=== PATIENT | female | born 1950 | race Caucasian/White ===

== ENCOUNTER → 2023-12-06 13:45 | Outpatient (REF) | payer OTHER, SELFPAY | LOC: DHCBS MAIN 13:45 | PROVIDERS: ATTENDING PHYSICIAN Internal Medicine Cardiovascular Disease | DX: I34.0 Nonrheumatic mitral (valve) insufficiency (principal) | CPT/HCPCS: 93306 ==

== ENCOUNTER 2023-12-22 07:29 | Day surgery (SDC) | payer OTHER, SELFPAY ==
[2023-12-22] VITALS (8 sets, daily range): BP systolic 104–133; BP diastolic 42–81; BMI 26.4
[2023-12-22] MEDS: LOW STRENGTH ASPIRIN 243 MG PO (08:22)
[2023-12-22] MEDS: NSS 203 ML IV (08:25)
[2023-12-22 08:32] LABS: Hematocrit 36.2 % (37.0-47.0); Mean Corp Hgb Conc. 33.1 g/dL (33.0-37.0); Mean Corpuscular Hgb 31.3 pg (27.0-31.0); Mean Corpuscular Volume 94.5 fL (81.0-99.0); Platelet Count 200 10^3/uL (130-400); Red Blood Cell Count 3.83 10^6/uL (4.20-5.40); Red Cell Dist. Width 14.2 % (11.5-14.5); White Blood Cell Count 7.2 10^3/uL (4.8-10.8)
[2023-12-22 08:36] LABS: Blood Urea Nitrogen 40 mg/dl (7-17); Calcium 9.1 mg/dl (8.4-10.2); Carbon Dioxide 26 mmol/L (22-30); Chloride 105 mmol/L (98-107); Estimated Creatinine Clearance 37 ml/min; Glucose 99 mg/dl (70-99); Potassium 3.8 mmol/L (3.5-5.1); Sodium 138 mmol/L (135-145); eGFR 52.73
[2023-12-22 11:38] LABS: ACT-LR - POC 245 Seconds (116-155)
[2023-12-22 11:59] LABS: ACT-LR - POC 252 Seconds (116-155)
--- NOTE | 2023-12-22 12:08 | ITS.CL.CATH ---
It Support Engineer - Catheterization
Cardiac Catheterization
Procedure Report:
RIGHT AND LEFT HEART STUDY
Date of Procedure: December 22, 2023
Referring: Dr. Geovanna Browne
PROCEDURES:
1. Right heart catheterization
2. Left heart catheterization with coronary and single-plane left ventriculography
3. Hemodynamic assessment of circumflex, LAD, and RCA with a Imlay Verrata wire
INDICATION: This is a 73-year-old female with moderate to severe mitral regurgitation, moderate tricuspid regurgitation, biatrial dilation and history of Raynaud's and CREST syndrome. She is permanently in atrial fibrillation on oral
anticoagulation. She was treated with IV diuresis but her symptoms of shortness of breath have persisted and she is now referred for coronary angiography and right heart catheterization.
ACCESS: Very poor right radial pulse with active Raynaud's and blanching of fingertips. Arterial access was obtained in the right common femoral artery with placement of a 6 Mexican arterial and venous sheaths using ultrasound guidance and
micropuncture.
HEMODYNAMICS : mmHg
RA (m) : 9
RV (s/d) : 52/2, 10
PA (s/d, m) : 50/20, 35
PCWP (m) : 17 with V waves to 28 mmHg
AO (s/d, m) : 140/54, 91
LV (s/d) : 148/10
LVEDP : 21
Estimated Janet Cardiac Output: 3.4 L / min and Cardiac Index: 2.0 L/ min / m-2
Systemic Vascular Resistance: 24.1 Wood units = 1929 dynes*sec*cm-5
Pulmonary Vascular Resistance: 5.3 Wood units = 424 dynes*sec*cm-5
CORONARY FINDINGS :
Dominance: Right
LEFT MAIN: Normal
LEFT ANTERIOR DESCENDING: The LAD arises normally from the left main and runs in the anterior interventricular groove. The LAD has minor irregularities over its course with no focal obstructive high-grade stenosis. The distal LAD wraps around the
apex.
CIRCUMFLEX: The circumflex is a medium caliber nondominant vessel that terminates into 2 small to medium caliber obtuse marginal branches. The mid circumflex has a long area of moderate atherosclerosis and focal 60-70% stenosis in the mid
circumflex before the bifurcation of the 2 terminal obtuse marginal branches.
RIGHT CORONARY ARTERY: The right coronary artery is a moderate caliber dominant vessel with a 50% proximal stenosis and minor irregularities throughout the remainder of the artery. The PDA and posterolateral branches are widely patent.
VENTRICULOGRAPHY: Left ventriculography was performed in an HERNANDEZ projection. The digital single-plane left ventricular ejection fraction is visually estimated at 50% with mild global hypokinesis. There is +1 mitral regurgitation noted on
ventriculogram
HEMODYNAMIC ASSESSMENT OF THE CIRCUMFLEX, LAD, AND RCA WITH A [place] VERRATA WIRE: Intravenous heparin was administered and the ACT was monitored. The origin of the left main was cannulated with a 6 Fr JL 4 guide catheter. Two hundred micrograms
of intracoronary nitroglycerin was given through the guide catheter. A Imlay Verrata wire was advanced to the guide catheter tip and normalized to guide catheter pressure. The Verrata wire was then carefully manipulated across the stenosis in
the mid circumflex and into a distal obtuse marginal branch. The iFR serially measured below the ischemic threshold at 0.83, 0.83, 0.81 in the Pd/Pa at the guide catheter measured 1.0 confirming no baseline drift.
The Imlay Verrata wire was redirected to the distal LAD where the iFR serially measured above the ischemic threshold at 0.92, 0.90, and 0.91. The resting Pd/Pa at the guide catheter was 1.0 confirming no baseline drift.
Attention was then turned to the right coronary artery. The Imlay Verrata wire was normalized to the guide catheter pressure while the guide was disengaged from the coronary ostium. The guide catheter engaged the right coronary ostium and
intracoronary nitroglycerin was administered. The Verrata wire was advanced to the distal right coronary artery where the iFR serially above the ischemic threshold and 0.97 and 0.98.
RADIATION SUMMARY: Fluoro Time (min): 10.3, Dose (mGy): 438, DAP (Gy.cm2) : 36.6
CONCLUSIONS
1. Single-vessel coronary artery disease. The stenosis in the mid circumflex was shown to be hemodynamically significant with an iFR serially measuring 0.83, 0.83, and 0.81.
2. There is moderate noncritical coronary disease with an IFR measuring above the ischemic threshold in both the LAD and RCA.
3. Low normal LVEF visually estimated at 50% with +1 mitral regurgitation noted by ventriculography
RECOMMENDATIONS
1. Proceed with JEFFREY to determine appropriate therapy and severity of mitral regurgitation
2. Continue apixaban
3. 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 Browne will review available data and further management decisions can be made based on the findings of the JEFFREY and assessment of hemodynamic
Copy to: Dr. Geovanna Browne
[2023-12-22] MEDS: NSS 1000 IV (12:45)
== END 2023-12-22 15:15 | disposition home or self-care (01) ==
LOC: CATH 07:29
PROVIDERS: ATTENDING PHYSICIAN Internal Medicine Interventional Cardiology; OTHER PHYSICIAN Internal Medicine Cardiovascular Disease
DX: I25.10 Atherosclerotic heart disease of native coronary artery without angina pectoris (principal); I48.91 Unspecified atrial fibrillation; I08.1 Rheumatic disorders of both mitral and tricuspid valves; R06.02 Shortness of breath; I10 Essential (primary) hypertension; K21.9 Gastro-esophageal reflux disease without esophagitis; M34.1 CR(E)ST syndrome; Z79.01 Long term (current) use of anticoagulants
CPT/HCPCS: C1769; C1894; 80048; 85027; 85347; 93460; 93571; 93572; C1760; Q9967

== ENCOUNTER → 2023-12-28 09:16 | Day surgery (SDC) | payer OTHER, SELFPAY ==
[2023-12-28 10:42] VITALS: BMI 26.6
== END ==
LOC: CATH 09:16
PROVIDERS: ATTENDING PHYSICIAN Internal Medicine Cardiovascular Disease
DX: I08.3 Combined rheumatic disorders of mitral, aortic and tricuspid valves (principal); I48.91 Unspecified atrial fibrillation; I12.9 Hypertensive chronic kidney disease with stage 1 through stage 4 chronic kidney disease, or unspecified chronic kidney disease; N18.9 Chronic kidney disease, unspecified; K21.9 Gastro-esophageal reflux disease without esophagitis; Z79.01 Long term (current) use of anticoagulants
CPT/HCPCS: 93312; 93320; 93325

== ENCOUNTER 2024-01-29 06:23 | Day surgery (SDC) | payer OTHER, SELFPAY ==
[2024-01-23 10:37] VITALS: BMI 28.2
[2024-01-23 11:12] LABS: % Basophils 0.2 % (0-2); % Eosinophils 1.5 % (0-6); % Immature Granulocytes 0.4 % (0-0.5); % Lymphocytes 22.9 % (20.5-51.1); % Monocytes 5.7 % (1.7-9.3); % Neutrophils 69.3 % (42.2-75.2); Absolute Eosinophils 0.1 10^3/uL (0-0.7); Absolute Lymphocytes 1.9 10^3/uL (1.2-3.4); Absolute Monocytes 0.5 10^3/uL (0.1-0.6); Absolute Neutrophils 5.6 10^3/uL (1.4-6.5); Hematocrit 36.3 % (37.0-47.0); Hemoglobin 11.9 g/dL (12.0-16.0); Mean Corp Hgb Conc. 32.8 g/dL (33.0-37.0); Mean Corpuscular Hgb 31.2 pg (27.0-31.0); Mean Platelet Volume 11.3 fL (7.4-10.4); Nucleated Red Blood Cells % 0 %; Platelet Count 163 10^3/uL (130-400); Red Blood Cell Count 3.82 10^6/uL (4.20-5.40); Red Cell Dist. Width 13.5 % (11.5-14.5); White Blood Cell Count 8.1 10^3/uL (4.8-10.8)
[2024-01-23 11:34] LABS: INR 1.72
[2024-01-23 12:04] LABS: ALT (SGPT) 14 U/L (0-35); AST (SGOT) 21 U/L (14-36); Albumin 4.1 g/dl (3.5-5.0); Alkaline Phosphatase 84 U/L (38-126); Blood Urea Nitrogen 39 mg/dl (7-17); Calcium 9.3 mg/dl (8.4-10.2); Carbon Dioxide 25 mmol/L (22-30); Chloride 103 mmol/L (98-107); Estimated Creatinine Clearance 39 ml/min; Glucose 120 mg/dl (70-99); Potassium 4.1 mmol/L (3.5-5.1); Sodium 135 mmol/L (135-145); Total Bilirubin 0.8 mg/dl (0.2-1.3); Total Protein 6.6 g/dl (6.3-8.2); eGFR 52.73
[2024-01-23 12:33] LABS: NT-proBNP 1600 pg/ml
[2024-01-29] VITALS (13 sets, daily range): BP systolic 93–133; BP diastolic 47–79; BMI 26.8
[2024-01-29] MEDS: LOW STRENGTH ASPIRIN 324 MG PO (07:18)
[2024-01-29] MEDS: NSS 205 ML IV (07:19)
[2024-01-29] MEDS: PLAVIX 600 MG PO (07:27)
[2024-01-29 08:27] LABS: ACT-LR - POC 313 Seconds (116-155)
--- NOTE | 2024-01-29 09:33 | ITS.CL.CATH ---
Grease Buffer - Catheterization
Cardiac Catheterization
Procedure Report:
ANGIOPLASTY REPORT
Date of Procedure: January 29, 2024
Referring: Dr. Geovanna Browne
INDICATIONS: Moderate to severe mitral regurgitation by transthoracic echocardiogram and moderate mitral regurgitation by transesophageal echocardiogram. Hemodynamically significant mid circumflex stenosis measured at the time of coronary
angiography December 22, 2023. Her symptoms of shortness of breath have persisted with no clear etiology. She is now referred for coronary intervention of the hemodynamically significant stenosis in the mid circumflex.
PROCEDURES:
1. Successful stenting of the mid circumflex with a 3.5 x 23 mm Xience stent that was postdilated with a 3.5 mm noncompliant balloon
ACCESS: Right common femoral artery, 6 Divehi sheath with history of severe Raynaud's disease
ANGIOPLASTY REPORT: Arterial access was obtained in the right common femoral artery using ultrasound guidance and micropuncture technique. A 6 Divehi sheath was inserted. Angiography revealed appropriate positioning of the arteriotomy site for
closure with an Angio-Seal at the conclusion of the interventional procedure.
Intravenous heparin, 7000 units, was administered and the ACT was followed during the procedure. The patient received a 600 mg loading dose of clopidogrel just prior to arrival to the catheterization laboratory and was treated with aspirin 81 mg
daily prior to the procedure. Her apixaban was held for 48 hours.
The origin of the left main was cannulated with a 6 Divehi EBU 3.5 guiding catheter and a BMW guidewire across the stenosis in the mid circumflex and was advanced to the distal vessel. Primary stenting was performed with placement of a 3.5 x 23 mm
Xience stent. The stent was implanted at nominal pressures then postdilated with a 3.5 mm noncompliant balloon between 16 and 18 kayode with a nice angiographic result
COMPLICATIONS: None
RADIATION SUMMARY: Fluoro Time (min): 4.3, Dose (mGy): 176.2, DAP (Gy.cm2) : 12.0
CONCLUSION
1. Successful stenting of the mid circumflex with a 3.5 x 23 mm Xience stent that was implanted at nominal pressures and postdilated with a 3.5 mm noncompliant balloon to high pressures
RECOMMENDATIONS
1. Aspirin, clopidogrel, apixaban for 1 week followed by clopidogrel and apixaban for 6 to 12 months
Copy to: Dr. Geovanna Browne
--- NOTE | 2024-01-29 14:50 | W.PN.UPDATE ---
Update Note
Progress Note Update
Pt seen post LCx PCI. Right femoral cath site without ht/bleeding, soft. Post EKG AFib 80s as before, no acute changes. Pt will be on triple therapy with aspirin, plavix, and eliquis for 1 week, then stop aspirin and remain on plavix/eliquis only.
Omeprazole will be changed out for protonix. Continue other meds as before. Cardiac rehab consulted. Followup with Dr. Browne as scheduled and will discuss plan for MitraClip at that point. Home today if groin site/tele remain stable.
== END 2024-01-29 15:00 | disposition home or self-care (01) ==
LOC: CATH 06:23
PROVIDERS: ATTENDING PHYSICIAN Internal Medicine Interventional Cardiology
DX: I25.10 Atherosclerotic heart disease of native coronary artery without angina pectoris (principal); I08.1 Rheumatic disorders of both mitral and tricuspid valves; I13.0 Hypertensive heart and chronic kidney disease with heart failure and stage 1 through stage 4 chronic kidney disease, or unspecified chronic kidney disease; I50.32 Chronic diastolic (congestive) heart failure; N18.30 Chronic kidney disease, stage 3 unspecified; E78.5 Hyperlipidemia, unspecified; I48.91 Unspecified atrial fibrillation; M34.1 CR(E)ST syndrome; I73.00 Raynaud's syndrome without gangrene; I27.20 Pulmonary hypertension, unspecified; K21.9 Gastro-esophageal reflux disease without esophagitis; M19.90 Unspecified osteoarthritis, unspecified site; Z79.01 Long term (current) use of anticoagulants; Z79.02 Long term (current) use of antithrombotics/antiplatelets; Z79.82 Long term (current) use of aspirin
CPT/HCPCS: C1769; C1725; 36415; 80053; 83880; 85025; 85347; 85610; 93005; C1760; C1874; C1894; C9600; Q9967

== ENCOUNTER 2024-02-05 11:53 | Emergency (ER) | payer OTHER, SELFPAY ==
[2024-02-05 11:58] VITALS: BP 133/64
--- NOTE | 2024-02-05 13:26 | ED.GENMED ---
History of Present Illness
General
Chief Complaint: Nose Bleed
Source: patient and family (Daughter)
Exam Limitations: none
Time Seen by Provider: 02/05/24 13:18
Nursing documentation reviewed up to this point in time: agreed with
Travel History
Have you had any contact with someone who has COVID-19?: No
Do you have any symptoms of coronavirus? Fever > 100 degrees, chills, cough, shortness of breath, sore throat, loss of taste or smell, muscle aches, or headache?: No
History of Present Illness
History of Present Illness:
73-year-old female with past medical history of hypertension, hyperlipidemia, CHF, atrial fibrillation, CAD status post stent who presents to the emergency department with her daughter for evaluation of nosebleed. Patient reports onset about 2 and
half hours prior to arrival. She says she is bleeding from left nare only. She says bleeding mostly anterior although she has swallowed a small amount of blood. She denies any trauma or injury. She denies any other complaints today including
shortness of breath or dizziness. She is on Eliquis, aspirin, Plavix for her various medical issues.
Review of Systems
Review of Systems
All Other Systems: ROS reviewed and negative except as documented in HPI and ROS
EENT: Reports other (Epistaxis)
Respiratory: Denies cough or trouble breathing
Neurological: Denies dizzy
Phy Exam
Physical Exam
Physical Exam:
General: Awake, alert, sitting in bed with cotton ball in left nare
Head: Normocephalic, atraumatic
Eyes: Conjunctiva normal, pupils equal round reactive to light bilaterally
Nose: No blood in the right nare, left nare some dried blood appears to be tiny active bleed on the nasal septum
Throat: Airway intact, handling secretions, no posterior bleeding appreciated
Neck: Trachea midline
Lungs: Breathing comfortably no distress
Heart: Regular rate
Neuro: No gross deficits
Skin: no rash
Extremities: Warm and well-perfused
Scores
Heart Failure Risk
Heart Failure Risk Score: Not Applicable
Heart Score for Chest Pain Patients
STEMI patient?: Not applicable
Withdrawal Assessment of Alcohol
Withdrawal Assessment Completed?: Not applicable
Course
Vital Signs
Initial and Last Documented VS:
Initial Vital Signs
Temp Pulse Resp BP Pulse Ox
36.7 C 75 18 133/64 96
02/05/24 11:58 02/05/24 11:58 02/05/24 11:58 02/05/24 11:58 02/05/24 11:58
Last Documented Vital Signs
Temp Pulse Resp BP Pulse Ox
36.7 C 71 18 131/62 96
02/05/24 11:58 02/05/24 13:46 02/05/24 11:58 02/05/24 13:46 02/05/24 11:58
Procedures
Nosebleed
Drug treatment: Epinephrine
Treatment: local pressure applied and Silver nitrate cautery
Post treatment bleeding: none- good control
MDM/Problems Addressed
Differential Diagnosis Includes:
Anterior epistaxis
MDM/Problems Addressed:
73-year-old female on multiple blood thinners for various medical issues presents with spontaneous epistaxis from the left nare. On exam she has a tiny apparently venous oozing from the left nasal septum visualized. Protecting her airway, no signs
concerning for posterior bleeding. Applied epinephrine soaked cotton ball to the left nare followed by chemical cautery with silver nitrate. Good hemostasis. Will monitor for rebleeding.
Patient observed for 1 hour after cautery with no additional bleeding. Will discharge, ENT referral as needed. Spoke about return precautions all questions answered.
*Pulse Oximetry
Patient hypoxic: no
*Critical Care Note
Total Time (30-74mins, 75-104mins- exclusive of procedures): Not Applicable
ED Attending Note
-
Portions of this chart may have been created with voice recognition software.� Occasional wrong word or��sound alike� substitutions may have occurred due to the inherent limitations of voice recognition software.
Discharge Plan
Departure
Patient Disposition: Home (Routine Discharge)
Date of Disposition: 02/05/24
Time of Disposition: 15:02
Patient with high blood pressure during this ER visit?: No
Discharge Problem:
Acute anterior epistaxis
Instructions: Nosebleeds (DC)
Prescriptions:
No Action
multivitamin Tablet
1 tab PO DAILY
losartan 50 mg Tablet
50 mg PO DAILY
furosemide 40 mg Tablet
40 mg PO DAILY
carvedilol 25 mg Tablet
25 mg PO BID
Eliquis 5 mg Tablet
5 mg PO BID
atorvastatin 40 mg tablet
40 mg PO QPM
aspirin 81 mg Tablet
81 mg PO DAILY
clopidogrel 75 mg tablet
75 mg PO DAILY Qty: 90 3RF
pantoprazole 40 mg tablet,delayed release (DR/EC)
40 mg PO DAILY Qty: 90 3RF
Referrals:
Jimena Haines CRNP [Family Provider] -
Lawrence Vega MD [Active] - Call in 1-3 days for appt
Activity Restrictions/Additional Instructions:
Thank you for visiting the Emergency Department at [facility].
1. Please schedule a follow up appointment as directed. Call first thing tomorrow morning to make an appointment.
2. If indicated, please take your medications as instructed and indicated on discharge paperwork.
3. If any of your symptoms do not improve, or persist, or become more severe within 6-12 hours, please return to the emergency department for further care.
4. Please return to the emergency department if you develop a headache, neck pain/stiffness, fever greater than 100.4F, chest pain, shortness of breath, persistent nausea, vomiting, slurred speech, difficulty walking, numbness/tingling, weakness,
signs of infection or any other symptoms that are worrisome to you.
Please call [phone] if you have any questions.
Interventions
Interventions:
*General Assessment Last Done: 02/05/24 13:49
*Neglect/Abuse Screening Last Done: 02/05/24 13:49
*ED COVID-19 Vaccine History Last Done: 02/05/24 11:58
ED-EENT Assessment Last Done: 02/05/24 13:47
Discharge Date and Time
Print Language: GREENLANDIC
[2024-02-05 13:46] VITALS: BP 131/62
== END 2024-02-05 15:10 | disposition home or self-care (01) ==
LOC: EMR 11:53
PROVIDERS: EMERGENCY PHYSICIAN Emergency Medicine; FAMILY PHYSICIAN Nurse Practitioner
DX: R04.0 Epistaxis (principal); Z79.01 Long term (current) use of anticoagulants
CPT/HCPCS: 99283; 30901

== ENCOUNTER 2024-02-24 10:12 | Emergency (ER) | payer OTHER, SELFPAY ==
--- NOTE | 2024-02-24 11:41 | ED.GENMED ---
History of Present Illness
General
Chief Complaint: Nose Bleed
Source: patient and family
Exam Limitations: none
Time Seen by Provider: 02/24/24 11:07
Nursing documentation reviewed up to this point in time: agreed with
Travel History
Have you had any contact with someone who has COVID-19?: No
Do you have any symptoms of coronavirus? Fever > 100 degrees, chills, cough, shortness of breath, sore throat, loss of taste or smell, muscle aches, or headache?: No
History of Present Illness
History of Present Illness:
Patient is a 73-year female who presents to the ER with complaints of nosebleed from left nares. It started before 8 AM this morning and has been bleeding. She was seen February 04 for same and had it cauterized. She is normally on Eliquis for A-fib
also started on Plavix after having a stent 4 weeks ago.
Review of Systems
Review of Systems
Allergies reviewed?: Yes
Other source history: family
All Other Systems: ROS reviewed and negative except as documented in HPI and ROS
Constitutional: Reports no symptoms; Denies fever, fatigue or chills
EENT: Reports other (left nares nose bleed )
Cardiac: Reports no symptoms
ABD/GI: Reports no symptoms; Denies nausea or vomiting
: Reports no symptoms
Musculoskeletal: Reports no symptoms
Skin: Reports no symptoms
Neurological: Reports no symptoms
Psychiatric: Reports no symptoms
Phy Exam
General Physical Exam
General Presentation: no apparent distress
General age: appears stated age
General Skin: warm and dry
General Habitus: normal
General Mental: alert
General Hydration: appears well hydrated
ENT Exam
ENT Exam: EOMI and other (+ bleeding (anterior from right nares) )
Neurological Exam
Neurological Exam: alert and oriented x3
Musculoskeletal Exam
Musculoskeletal Exam: full ROM
Skin Exam
Skin Exam: normal color and warm/dry
Psychiatric Exam
Psychiatric Exam: normal mood/affect
Course
Orders/Labs/Results
Orders:
Orders
02/24/24 14:03
Acetaminophen [Tylenol] 650 mg PO NOW STA
02/24/24 14:04
Vital Signs- Treatment ONCE
Frequency: Once
Vital Signs
Initial and Last Documented VS:
Initial Vital Signs
Temp
97.9 F
02/24/24 10:27
Last Documented Vital Signs
Temp Pulse Resp BP Pulse Ox
97.9 F 70 16 117/53 98
02/24/24 10:27 02/24/24 12:07 02/24/24 12:07 02/24/24 12:07 02/24/24 12:07
MDM/Problems Addressed
Differential Diagnosis Includes:
not limited to :epistaxis
MDM/Problems Addressed:
Patient is a 73-year-old female who presents with nosebleed. This is second visit. Patient is on eliquis and Plavix she recently had a stent January 28. patient patient denies any lightheaded dizziness . patient initially was packed Murocel but
then blood and bleeding resolved with rapid Rhino. Patient was monitored here no further bleeding. Patient is anticoagulated(recent stent will have patient continue) and will will DC with ENT. Patient no acute distress.
Chronic conditions affecting care:
Recent stent on anticoagulation
*Pulse Oximetry
Patient hypoxic: no
*Critical Care Note
Total Time (30-74mins, 75-104mins- exclusive of procedures): Not Applicable
ED Attending Note
-
Portions of this chart may have been created with voice recognition software.� Occasional wrong word or��sound alike� substitutions may have occurred due to the inherent limitations of voice recognition software.
Discharge Plan
Departure
Patient Disposition: Home (Routine Discharge)
Date of Disposition: 02/24/24
Time of Disposition: 14:03
Patient with high blood pressure during this ER visit?: No
Condition: Fair
Covid-19: Not Applicable
Discharge Problem:
Epistaxis
Instructions: Nosebleeds (DC)
Prescriptions:
No Action
multivitamin Tablet
1 tab PO DAILY
losartan 50 mg Tablet
50 mg PO DAILY
furosemide 40 mg Tablet
40 mg PO DAILY
carvedilol 25 mg Tablet
25 mg PO BID
Eliquis 5 mg Tablet
5 mg PO BID
atorvastatin 40 mg tablet
40 mg PO QPM
aspirin 81 mg Tablet
81 mg PO DAILY
clopidogrel 75 mg tablet
75 mg PO DAILY Qty: 90 3RF
pantoprazole 40 mg tablet,delayed release (DR/EC)
40 mg PO DAILY Qty: 90 3RF
Referrals:
Andreas Au MD [Active] -
UNKNOWN - PT DOES,NOT KNOW [Family Provider] -
Activity Restrictions/Additional Instructions:
Follow-up with switchgear repairer on Monday call for an appointment. Return if any worsening of symptoms.
Interventions
Interventions:
*Risk Screen - Suicide Last Done: 02/24/24 10:27
*General Assessment Last Done: 02/24/24 10:27
ED- Fall Risk Assessment Last Done: 02/24/24 12:08
ED-EENT Assessment Last Done: 02/24/24 12:08
Discharge Date and Time
Print Language: MALTESE
[2024-02-24 12:07] VITALS: BP 117/53
[2024-02-24] MEDS: TYLENOL 650 MG PO (14:12)
[2024-02-24 14:17] VITALS: BP 130/77
== END 2024-02-24 14:19 | disposition home or self-care (01) ==
LOC: EMR 10:12
PROVIDERS: EMERGENCY PHYSICIAN Emergency Medicine
DX: R04.0 Epistaxis (principal); I48.91 Unspecified atrial fibrillation; Z79.01 Long term (current) use of anticoagulants; Z79.02 Long term (current) use of antithrombotics/antiplatelets
CPT/HCPCS: 99282

== ENCOUNTER 2024-03-26 10:29 | Outpatient (RCR) | payer OTHER, SELFPAY | END 2024-03-26 23:59 | disposition home or self-care (01) | LOC: CRHB 10:29 | PROVIDERS: ATTENDING PHYSICIAN Internal Medicine Cardiovascular Disease | DX: I25.10 Atherosclerotic heart disease of native coronary artery without angina pectoris (principal); Z95.5 Presence of coronary angioplasty implant and graft | CPT/HCPCS: G0422; G0423 ==

== ENCOUNTER 2024-03-28 13:15 | Emergency (ER) | payer OTHER, SELFPAY ==
[2024-03-28 13:17] VITALS: BP 110/72
[2024-03-28 13:32] LABS: % Basophils 0.3 % (0-2); % Eosinophils 0.8 % (0-6); % Immature Granulocytes 0.3 % (0-0.5); % Lymphocytes 16.3 % (20.5-51.1); % Monocytes 6.6 % (1.7-9.3); % Neutrophils 75.7 % (42.2-75.2); Absolute Eosinophils 0.1 10^3/uL (0-0.7); Absolute Lymphocytes 1.2 10^3/uL (1.2-3.4); Absolute Monocytes 0.5 10^3/uL (0.1-0.6); Absolute Neutrophils 5.5 10^3/uL (1.4-6.5); Hematocrit 31.5 % (37.0-47.0); Mean Corp Hgb Conc. 31.7 g/dL (33.0-37.0); Mean Corpuscular Hgb 31.2 pg (27.0-31.0); Mean Corpuscular Volume 98.1 fL (81.0-99.0); Mean Platelet Volume 10.3 fL (7.4-10.4); Nucleated Red Blood Cells % 0 %; Platelet Count 193 10^3/uL (130-400); Red Blood Cell Count 3.21 10^6/uL (4.20-5.40); Red Cell Dist. Width 13.3 % (11.5-14.5); White Blood Cell Count 7.3 10^3/uL (4.8-10.8)
[2024-03-28 13:53] LABS: ALT (SGPT) 11 U/L (0-35); AST (SGOT) 19 U/L (14-36); Albumin 3.6 g/dl (3.5-5.0); Chloride 103 mmol/L (98-107); Glucose 107 mg/dl (70-99); Lipase 83 U/L (23-300); Potassium 4.3 mmol/L (3.5-5.1); Total Bilirubin 0.5 mg/dl (0.2-1.3); Total Protein 6.3 g/dl (6.3-8.2); eGFR 36.34
[2024-03-28 14:28] LABS: Alkaline Phosphatase 74 U/L (38-126); Blood Urea Nitrogen 45 mg/dl (7-17); Calcium 9.4 mg/dl (8.4-10.2); Carbon Dioxide 28 mmol/L (22-30); Sodium 138 mmol/L (135-145)
--- NOTE | 2024-03-28 15:37 | ED.GENMED ---
Addendum entered and electronically signed by Victor Manuel Mckay PA-C 03/31/24 08:44:
On appropriate abx, Augmentin
Original Note:
History of Present Illness
<Emely William PA-C - Last Filed: 03/28/24 23:15>
General
Chief Complaint: Abdominal Pain
Source: patient
Exam Limitations: none
Time Seen by Provider: 03/28/24 15:07
Nursing documentation reviewed up to this point in time: agreed with
Travel History
Have you had any contact with someone who has COVID-19?: No
Do you have any symptoms of coronavirus? Fever > 100 degrees, chills, cough, shortness of breath, sore throat, loss of taste or smell, muscle aches, or headache?: No
History of Present Illness
History of Present Illness:
Patient is a 73 year old female with hx atrial fibrillation on eliquis, CAD s/p stents on plavix, CHF, iron deficiency anemia presenting for evaluation of abdominal pain. Symptoms have been ongoing for the past 5 days. She reports pain on the left
side of her abdomen worse with movement. She is has intermittent diarrhea and constipation over the past week. Patient has had nausea and a few episodes of vomiting over the past week, as well. She does report mild dizziness/lightheadedness over
the past few days. Patient denies any urinary symptoms, fever or chills. She denies any chest pain or shortness of breath. Patient denies any blood in stool or vomit. She has had dark stool since starting to take her iron supplements.
Patient was seen by her primary care provider today who recommended that she be evaluated in the emergency department.
Review of Systems
<Emely William PA-C - Last Filed: 03/28/24 23:15>
Review of Systems
Allergies reviewed?: Yes
All Other Systems: ROS reviewed and negative except as documented in HPI and ROS
Phy Exam
<Emely William PA-C - Last Filed: 03/28/24 23:15>
Physical Exam
Physical Exam:
Vitals: Patient's vital signs are stable. Afebrile
General: Patient is well appearing, no acute distress
Skin: Warm and dry, no rashes or lesions
Head: Normocephalic, atraumatic
Eyes: Sclera nonicteric. EOMs intact. No nystagmus.
Throat: Protecting airway. Dry mucous membranes.
Neck: Normal ROM, no cervical spine tenderness, no meningismus
Cardiac: Regular rate, irregular rhythm, no murmurs.
Pulm: Normal respiratory effort, no wheezes, rales, rhonchi heard on exam.
Abdomen: Moderate abdominal tenderness in left lower quadrant with voluntary guarding. No CVA tenderness
Extremities: No evidence of cyanosis or edema. Good distal pulses
Neuro: AAOx3. CN II-XII intact. No focal neurologic deficits.
Psychiatric: Normal affect.
Course
<Emely William PA-C - Last Filed: 03/28/24 23:15>
Orders/Labs/Results
Orders:
Orders
03/28/24 13:25
Complete Blood Count/With Diff Urgent
Comprehensive Metabolic Panel Urgent
Lipase Urgent
03/28/24 15:26
0.9% Sodium Chloride 500 ml [Nss] 500 ml IV BOLUS
Ondansetron Injectable [Zofran] 4 mg IV NOW STA
03/28/24 15:27
Electrocardiogram (*1) Urgent
Reason for Study: Abdominal Pain
03/28/24 15:28
EKG- Treatment ONCE
03/28/24 15:32
CT Abd/pel (oral only)-[facility] Only Urgent
Comment:
Reason For Exam: LLQ abdominal pain +diarrhea
Iohexol [Omnipaque] See Protocol PO NOW STA
03/28/24 17:53
UA Reflex to Culture [Urinalysis Reflex To Culture] Urgent
Date Specimen was Collected: 03/28/24
Time Specimen was Collected: 17:52
Urine Microscopic Reflex Cult Urgent
Urine Culture Urgent
JACKIE Source: U
Specimen Description:
Date Specimen was Collected: 03/28/24
Time Specimen was Collected: 17:52
03/28/24 19:05
Amoxicillin 875 mg/Clav 125 mg [Augmentin 875 mg/125 mg] 1 tablet PO NOW STA
Abnormal Lab Results
03/28/24 03/28/24
13:25 17:53
RBC 3.21 L 10^6/uL
(4.20-5.40)
Hgb 10.0 L g/dL
(12.0-16.0)
Hct 31.5 L %
(37.0-47.0)
MCH 31.2 H pg
(27.0-31.0)
MCHC 31.7 L g/dL
(33.0-37.0)
Neutrophils % 75.7 H %
(42.2-75.2)
Lymphocytes % 16.3 L %
(20.5-51.1)
BUN 45 H mg/dl
(7-17)
Creatinine 1.5 H mg/dL
(0.6-1.0)
Glucose 107 H mg/dl
(70-99)
Ur Occult Blood Reflex 1+ A
(Negative)
Urine Nitrite (Reflex) Positive A
(Negative)
Leukocyte Esterase Rfl 2+ A
(Negative)
03/28/24 13:25
03/28/24 13:25
Vital Signs
Initial and Last Documented VS:
Initial Vital Signs
Temp Pulse Resp BP Pulse Ox
98.2 F 80 16 110/72 98
03/28/24 13:17 03/28/24 13:17 03/28/24 13:17 03/28/24 13:17 03/28/24 13:17
Last Documented Vital Signs
Temp Pulse Resp BP Pulse Ox
98.2 F 78 19 130/62 98
03/28/24 13:17 03/28/24 18:26 03/28/24 18:26 03/28/24 18:26 03/28/24 18:26
<Axel Soria MD - Last Filed: 03/28/24 20:43>
Orders/Labs/Results
Orders:
Orders
03/28/24 13:25
Complete Blood Count/With Diff Urgent
Comprehensive Metabolic Panel Urgent
Lipase Urgent
03/28/24 15:26
0.9% Sodium Chloride 500 ml [Nss] 500 ml IV BOLUS
Ondansetron Injectable [Zofran] 4 mg IV NOW STA
03/28/24 15:27
Electrocardiogram (*1) Urgent
Reason for Study: Abdominal Pain
03/28/24 15:28
EKG- Treatment ONCE
03/28/24 15:32
CT Abd/pel (oral only)-[facility] Only Urgent
Comment:
Reason For Exam: LLQ abdominal pain +diarrhea
Iohexol [Omnipaque] See Protocol PO NOW STA
03/28/24 17:53
UA Reflex to Culture [Urinalysis Reflex To Culture] Urgent
Date Specimen was Collected: 03/28/24
Time Specimen was Collected: 17:52
Urine Microscopic Reflex Cult Urgent
Urine Culture Urgent
JACKIE Source: U
Specimen Description:
Date Specimen was Collected: 03/28/24
Time Specimen was Collected: 17:52
03/28/24 19:05
Amoxicillin 875 mg/Clav 125 mg [Augmentin 875 mg/125 mg] 1 tablet PO NOW STA
Abnormal Lab Results
03/28/24 03/28/24
13:25 17:53
RBC 3.21 L 10^6/uL
(4.20-5.40)
Hgb 10.0 L g/dL
(12.0-16.0)
Hct 31.5 L %
(37.0-47.0)
MCH 31.2 H pg
(27.0-31.0)
MCHC 31.7 L g/dL
(33.0-37.0)
Neutrophils % 75.7 H %
(42.2-75.2)
Lymphocytes % 16.3 L %
(20.5-51.1)
BUN 45 H mg/dl
(7-17)
Creatinine 1.5 H mg/dL
(0.6-1.0)
Glucose 107 H mg/dl
(70-99)
Ur Occult Blood Reflex 1+ A
(Negative)
Urine Nitrite (Reflex) Positive A
(Negative)
Leukocyte Esterase Rfl 2+ A
(Negative)
03/28/24 13:25
03/28/24 13:25
Vital Signs
Initial and Last Documented VS:
Initial Vital Signs
Temp Pulse Resp BP Pulse Ox
98.2 F 80 16 110/72 98
03/28/24 13:17 03/28/24 13:17 03/28/24 13:17 03/28/24 13:17 03/28/24 13:17
Last Documented Vital Signs
Temp Pulse Resp BP Pulse Ox
98.2 F 78 19 130/62 98
03/28/24 13:17 03/28/24 18:26 03/28/24 18:26 03/28/24 18:26 03/28/24 18:26
<Emely William PA-C - Last Filed: 03/28/24 23:15>
MDM/Problems Addressed
Differential Diagnosis Includes:
Not limited to: diverticulitis, constipation, bowel obstruction, colitis, UTI, IBS, IBD, pyelonephritis
MDM/Problems Addressed:
73-year-old female with history as documented presenting with 1 week of abdominal pain and nausea. Some intermittent diarrhea and constipation. No fever or chills. Vitals are stable. Physical exam as above. She is moderately tender in left
lower quadrant with some voluntary guarding. Basic labs were sent which show a mild anemia with a hemoglobin of 10 which appears to be around patient's baseline. Did compare this to lab work for last week which is stable. Chemistry reveals
findings consistent with a mild FANG. Otherwise no clinically significant abnormalities. Urine shows no evidence of infection. Will give Zofran for nausea. Small bolus IV fluids. Patient denies any analgesic at this time. Given kidney function
will get CT abdomen/pelvis with oral contrast. Will closely monitor and reassess.
CT shows findings consistent with mild to moderate acute diverticulitis at the junction of the distal descending colon and proximal sigmoid colon. There is no evidence of abscess or perforation. Patient remains well-appearing and in no apparent
distress. She is not septic appearing and tolerating p.o. intake I do feel she will be fit for outpatient management. Will give first dose of Augmentin while in the emergency department discharged with 10 days of Augmentin. Return precautions
discussed at length. Recommend low fiber diet. Primary care follow-up. All questions answered.
Chronic conditions affecting care:
Atrial fibrillation on eliquis, diverticulosis, iron deficiency anemia
Acute Exacerbation and/or Progression of Chronic Illness:
Acute diverticulitis
<Emely William PA-C - Last Filed: 03/28/24 23:15>
*Radiology
Radiology exam reviewed: preliminary read by ED provider and radiology read reviewed
*Pulse Oximetry
Patient hypoxic: no
*EKG
Interpreted by ED Provider?: Yes
EKG Intrepretation Date: 03/28/24
Interpretation: abnormal
Heart Rate: 76
Rhythm: a-fib
Ischemia: non-specific ST changes
*Snow Remover Interpretation
Rate: Snow Remover- N/A
*Critical Care Note
Total Time (30-74mins, 75-104mins- exclusive of procedures): Not Applicable
ED Attending Note
<Emely William PA-C - Last Filed: 03/28/24 23:15>
-
Portions of this chart may have been created with voice recognition software.� Occasional wrong word or��sound alike� substitutions may have occurred due to the inherent limitations of voice recognition software.
<Axel Soria MD - Last Filed: 03/28/24 20:43>
ED Attending Note
Patient seen and examined by attending physician: Yes
ED Attending Note:
I have seen and evaluated the patient with a [id number] encounter. I have spoken to the advance practicer provider and involved in the medical history, the physical exam, medical decision making.
Evaluation and management service: agree unless noted differently below.
Results interpretation: agree unless noted differently below.
Focused HPI: 73-year-old female with a past medical history of hypertension, hyperlipidemia, atrial fibrillation, CHF, GERD, CAD who presents to the emergency department for evaluation of left lower quadrant pain. Patient reports onset of symptoms
about a week ago and they have been constant since that time. She reports a vague pain in the left lower abdomen that does not radiate. She says that initially she was having associated constipation for about 4 to 5 days but today actually had
some loose stools. She had some nausea and has had about 2 episodes of nonbloody emesis. She says she has felt slightly more fatigued and some mild dizziness/weakness. Finally came to the emergency to be assessed. Denies any urinary symptoms.
No fevers or chills. Denies similar symptoms in the past. She does report that she has a history of diverticulosis but no diverticulitis.
Physical exam: Awake alert not in distress. Vital signs normal. Abdomen soft, mild to moderate tenderness in the left lower quadrant with some voluntary guarding. No abdominal masses. No CVA tenderness.
Medical Decision Makin-year-old female presents for evaluation of left lower quadrant abdominal pain with associated symptoms as above. Ongoing for the past week or so. Vitals and exam as above. Sent for lab work including a CBC and a CMP
which showed mild FANG but no other clinically significant abnormalities. Urinalysis was negative for infection. She was sent for a CT of the abdomen pelvis which showed acute uncomplicated diverticulitis. No signs of sepsis, patient tolerating
p.o.�reasonable to trial outpatient antibiotics. She will follow-up with PCP and GI. Spoke about return precautions all questions answered.
Discharge Plan
Departure
Patient Disposition: Home (Routine Discharge)
Date of Disposition: 03/28/24
Time of Disposition: 19:05
Patient with high blood pressure during this ER visit?: No
Covid-19: Not Applicable
Discharge Problem:
Acute diverticulitis
Instructions: Low Fiber Diet, Diverticulitis (DC)
Prescriptions:
New
amoxicillin-pot clavulanate 875-125 mg tablet
1 tab PO BID 10 Days Qty: 20 0RF
No Action
multivitamin Tablet
1 tab PO DAILY
losartan 50 mg Tablet
50 mg PO DAILY
furosemide 40 mg Tablet
40 mg PO DAILY
carvedilol 25 mg Tablet
25 mg PO BID
Eliquis 5 mg Tablet
5 mg PO BID
atorvastatin 40 mg tablet
40 mg PO QPM
aspirin 81 mg Tablet
81 mg PO DAILY
clopidogrel 75 mg tablet
75 mg PO DAILY Qty: 90 3RF
pantoprazole 40 mg tablet,delayed release (DR/EC)
40 mg PO DAILY Qty: 90 3RF
Referrals:
Malaika Ching NP [Family Provider] - Follow up in 5-7 days
Activity Restrictions/Additional Instructions:
RETURN TO THE EMERGENCY DEPARTMENT WITH ANY FEVERS, CHILLS, INTRACTABLE NAUSEA/VOMITING, WORSENING IN ABDOMINAL PAIN, CHEST PAIN, SHORTNESS OF BREATH, WORSENING IN CURRENT SYMPTOMS, OR ANY OTHER CONCERNS
-A prescription for antibiotic has been sent to your pharmacy. You should take this twice a day for the next 10 days. The first dose has been given to you tonight while in the emergency department you can resume tomorrow morning.
-It is important stay well-hydrated. You should stick to a low fiber diet over the next 2 days if low resolves and then advance diet as tolerated.
-Follow-up with primary care provider in a few days to ensure symptoms are improving and for further management.
Interventions
Interventions:
*Risk Screen - Suicide Last Done: 03/28/24 13:17
*General Assessment Last Done: 03/28/24 13:17
*Neglect/Abuse Screening Last Done: 03/28/24 13:17
*Nursing Disposition Last Done: 03/28/24 19:34
HW-Pocidz-Jyfcrieswl Assessment Last Done: 03/28/24 16:35
Discharge Date and Time
Discharge Date/Time: 03/28/24 19:35
Print Language: SERBIAN
[2024-03-28] MEDS: ZOFRAN 4 MG IV (15:50)
[2024-03-28] MEDS: NSS 500 IV (15:50)
[2024-03-28] MEDS: OMNIPAQUE 50 ML PO (15:50)
[2024-03-28 18:03] LABS: Urine Albumin Negative (Neg - Trace); Urine Bilirubin Negative (Negative); Urine Character Very Cloudy (Clear); Urine Color Yellow; Urine Glucose Negative (Negative); Urine Ketone Negative (Negative); Urine Leukocyte 2+ (Negative); Urine Nitrite Positive (Negative); Urine Occult Blood 1+ (Negative); Urine Urobilinogen Negative (Neg - 1+)
[2024-03-28 18:16] LABS: Urine Mucus Few; Urine Red Blood Cell 0-2 /HPF (0-2)
[2024-03-28 18:17] LABS: Urine Squamous Cell 0-2 /LPF (Few)
[2024-03-28 18:26] VITALS: BP 130/62
[2024-03-28] MEDS: AUGMENTIN 875 MG/125 MG 1 TABLET PO (19:24)
== END 2024-03-28 19:35 | disposition home or self-care (01) ==
LOC: EMR 13:15
PROVIDERS: Physician Assistant; Student in an Organized Health Care Education/Training Program; EMERGENCY PHYSICIAN Emergency Medicine; FAMILY PHYSICIAN Nurse Practitioner Adult Health
DX: K57.32 Diverticulitis of large intestine without perforation or abscess without bleeding (principal); I48.91 Unspecified atrial fibrillation; I25.10 Atherosclerotic heart disease of native coronary artery without angina pectoris; I50.9 Heart failure, unspecified; D50.9 Iron deficiency anemia, unspecified; E27.9 Disorder of adrenal gland, unspecified; E78.5 Hyperlipidemia, unspecified; K21.9 Gastro-esophageal reflux disease without esophagitis; Z79.01 Long term (current) use of anticoagulants; Z79.02 Long term (current) use of antithrombotics/antiplatelets; Z95.5 Presence of coronary angioplasty implant and graft
CPT/HCPCS: 99284; 96374; 96361; 74176; 80053; 81003; 81015; 83690; 85025; 87077; 87086; 87186; 93005

== ENCOUNTER 2024-04-23 11:43 | Outpatient (RCR) | payer OTHER, SELFPAY | END 2024-04-23 23:59 | disposition home or self-care (01) | LOC: CRHB 11:43 | PROVIDERS: ATTENDING PHYSICIAN Internal Medicine Cardiovascular Disease | DX: I25.10 Atherosclerotic heart disease of native coronary artery without angina pectoris (principal); Z95.5 Presence of coronary angioplasty implant and graft | CPT/HCPCS: G0422; G0423 ==

== ENCOUNTER → 2024-05-13 13:55 | Outpatient (REF) | payer OTHER, SELFPAY | LOC: HWRCS 13:55 | PROVIDERS: ATTENDING PHYSICIAN Internal Medicine Cardiovascular Disease | DX: I34.0 Nonrheumatic mitral (valve) insufficiency (principal); I27.20 Pulmonary hypertension, unspecified | CPT/HCPCS: 93306 ==

== ENCOUNTER 2024-05-23 10:44 | Outpatient (RCR) | payer OTHER, SELFPAY | END 2024-05-23 23:59 | disposition home or self-care (01) | LOC: CRHB 10:44 | PROVIDERS: ATTENDING PHYSICIAN Internal Medicine Cardiovascular Disease | DX: I25.10 Atherosclerotic heart disease of native coronary artery without angina pectoris (principal); Z95.5 Presence of coronary angioplasty implant and graft | CPT/HCPCS: G0422; G0423 ==

== ENCOUNTER 2024-06-25 09:55 | Outpatient (RCR) | payer OTHER, SELFPAY | END 2024-06-25 23:59 | disposition home or self-care (01) | LOC: CRHB 09:55 | PROVIDERS: ATTENDING PHYSICIAN Internal Medicine Cardiovascular Disease | DX: I25.10 Atherosclerotic heart disease of native coronary artery without angina pectoris (principal); Z95.5 Presence of coronary angioplasty implant and graft | CPT/HCPCS: G0422; G0423 ==

== ENCOUNTER 2024-07-08 13:00 | Outpatient (RCR) | payer OTHER, SELFPAY | END 2024-07-08 23:59 | disposition home or self-care (01) | LOC: CRHB 13:00 | PROVIDERS: ATTENDING PHYSICIAN Internal Medicine Cardiovascular Disease | DX: I25.10 Atherosclerotic heart disease of native coronary artery without angina pectoris (principal); Z95.5 Presence of coronary angioplasty implant and graft | CPT/HCPCS: G0422; G0423 ==

== ENCOUNTER 2024-08-05 21:38 | Inpatient (IN) | payer OTHER, SELFPAY ==
[2024-08-05 13:40] VITALS: BP 117/57
[2024-08-05 13:59] LABS: % Basophils 0.1 % (0-2); % Immature Granulocytes 1.2 % (0-0.5); % Lymphocytes 8.2 % (20.5-51.1); % Monocytes 7.1 % (1.7-9.3); % Neutrophils 83.4 % (42.2-75.2); Absolute Immature Granulocytes 0.2 10^3/uL (0-0.05); Absolute Lymphocytes 1.2 10^3/uL (1.2-3.4); Absolute Neutrophils 12.3 10^3/uL (1.4-6.5); Hematocrit 26.8 % (37.0-47.0); Mean Corp Hgb Conc. 33.6 g/dL (33.0-37.0); Mean Corpuscular Hgb 30.5 pg (27.0-31.0); Mean Corpuscular Volume 90.8 fL (81.0-99.0); Mean Platelet Volume 9.6 fL (7.4-10.4); Nucleated Red Blood Cells % 0 %; Platelet Count 271 10^3/uL (130-400); Red Blood Cell Count 2.95 10^6/uL (4.20-5.40); Red Cell Dist. Width 13.6 % (11.5-14.5); White Blood Cell Count 14.7 10^3/uL (4.8-10.8)
[2024-08-05 14:18] LABS: ALT (SGPT) 25 U/L (0-35); AST (SGOT) 19 U/L (14-36); Albumin 2.8 g/dl (3.5-5.0); Alkaline Phosphatase 63 U/L (38-126); Blood Urea Nitrogen 32 mg/dl (7-17); Calcium 8.6 mg/dl (8.4-10.2); Carbon Dioxide 29 mmol/L (22-30); Chloride 101 mmol/L (98-107); Glucose 115 mg/dl (70-99); Potassium 3.5 mmol/L (3.5-5.1); Sodium 140 mmol/L (135-145); Total Bilirubin 0.5 mg/dl (0.2-1.3); Total Protein 5.2 g/dl (6.3-8.2); eGFR 58.75
[2024-08-05 14:20] LABS: NT-proBNP 3650 pg/ml
[2024-08-05 14:24] LABS: COVID-19 Antigen Negative (Negative)
[2024-08-05 16:22] VITALS: BP 105/53
--- NOTE | 2024-08-05 17:04 | ED.GENMED ---
History of Present Illness
<Abdoul Naranjo MD, Resident - Last Filed: 08/05/24 19:40>
General
Chief Complaint: Pneumonia Symptoms
Source: patient and family
Time Seen by Provider: 08/05/24 17:01
Travel History
Have you traveled to any high risk areas for coronavirus over the past 14 days?: No
Have you had any contact with someone who has COVID-19?: No
Do you have any symptoms of coronavirus? Fever > 100 degrees, chills, cough, shortness of breath, sore throat, loss of taste or smell, muscle aches, or headache?: No
History of Present Illness
History of Present Illness:
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
weakness, cough, anorexia and orthopnea over the past 2 weeks. Now with increased fatigue, weakness, dizziness and intermittent chills. She has not been able to tolerate oral intake since today morning. Her symptoms began 2 weeks ago, and were
presumed to be related to her CREST syndrome; she was given prednisone, which has helped her in the past. This time she did not note any improvements, and her cough has continued to progress. Her weight has actually gone down over the past few
months and bilateral lower extremity has remained stable. She has an ablation planned for the atrial fibrillation.
Past History
<Abdoul Naranjo MD, Resident - Last Filed: 08/05/24 19:40>
Past History
ED Past Medical History: Other (CREST syndrome; chronic heart failure with preserved ejection fraction; permanent atrial fibrillation; hypertension; hyperlipidemia; gastroesophageal reflux disease; coronary artery disease)
ED Past Surgical History: Other (cardiac stent; right knee replacement; cataracts)
Review of Systems
<Abdoul Naranjo MD, Resident - Last Filed: 08/05/24 19:40>
Review of Systems
Allergies reviewed?: Yes
Other source history: family
Constitutional: Reports fatigue, night sweats and chills
Respiratory: Reports cough, trouble breathing and other (orthopnea)
Cardiac: Reports no symptoms
ABD/GI: Reports no symptoms
: Reports no symptoms
Musculoskeletal: Reports no symptoms
Skin: Reports no symptoms
Neurological: Reports dizzy
Endocrine: Reports no symptoms
Hematologic/Lymphatic: Reports no symptoms
Psychiatric: Reports no symptoms
Phy Exam
<Abdoul Naranjo MD, Resident - Last Filed: 08/05/24 19:40>
General Physical Exam
General Presentation: well appearing and no apparent distress
General Skin: warm and dry
General Habitus: normal
General Mental: alert
General Hydration: appears well hydrated
ENT Exam
ENT Exam: EOMI, pharynx normal, neck supple and normocephalic
Eye Exam
Eye Exam: PERRL, cornea clear and conjunctiva normal
Cardiovascular Exam
Cardiovascular Exam: regular rate/rhythm, no edema, no murmur and normal peripheral pulses
Pulmonary Exam
Pulmonary Exam: lungs clear, no respiratory distress, no rales, no crackles, no rhonchi, no stridor and no wheezing
Cough: non productive cough
Gastrointestinal Exam
Gastrointestinal Exam: normal bowel sounds, non tender, soft, no organomegaly, no pulsatile mass and non distended
Neurological Exam
Neurological Exam: alert, oriented x3, no motor deficits and speech normal
Musculoskeletal Exam
Musculoskeletal Exam: full ROM and edema (1+ bilateral lower extremity)
Skin Exam
Skin Exam: normal color, warm/dry, no rash and no petechia
Psychiatric Exam
Psychiatric Exam: normal mood/affect
Course
<Abdoul Naranjo MD, Resident - Last Filed: 08/05/24 19:40>
Orders/Labs/Results
Orders:
Orders
08/05/24 13:38
Electrocardiogram (*1) Urgent
Reason for Study: Shortness of Breath
EKG- Treatment ONCE
08/05/24 13:42
CXR2 [CR Chest - 2 Views ] Urgent
Comment:
Reason For Exam: cough for two wks
08/05/24 13:50
COVID-19 Antigen Urgent
Source: Nasal Swab
Complete Blood Count/With Diff Urgent
Comprehensive Metabolic Panel Urgent
NT-proBNP Urgent
08/05/24 17:56
0.9% Sodium Chloride 500 ml [Nss] 500 ml IV BOLUS
08/05/24 18:05
Azithromycin [Zithromax] 500 mg PO NOW STA
CefTRIAXone [Rocephin] 1,000 mg IV NOW STA
08/05/24 18:13
Lactic Acid Stat
Blood Culture Urgent
JACKIE Source: Blood/Venous
Specimen Description:
08/05/24 18:15
Piperacillin/Tazo 4.5 Gram [Zosyn] 4.5 gram in 100 ml IV NOW
Abnormal Lab Results
08/05/24
13:50
WBC 14.7 H 10^3/uL
(4.8-10.8)
RBC 2.95 L 10^6/uL
(4.20-5.40)
Hgb 9.0 L g/dL
(12.0-16.0)
Hct 26.8 L %
(37.0-47.0)
Abs Immat Gran (auto) 0.2 H 10^3/uL
(0-0.05)
Absolute Neuts (auto) 12.3 H 10^3/uL
(1.4-6.5)
Absolute Monos (auto) 1.0 H 10^3/uL
(0.1-0.6)
Immature Gran % 1.2 H %
(0-0.5)
Neutrophils % 83.4 H %
(42.2-75.2)
Lymphocytes % 8.2 L %
(20.5-51.1)
BUN 32 H mg/dl
(7-17)
Glucose 115 H mg/dl
(70-99)
Total Protein 5.2 L g/dl
(6.3-8.2)
Albumin 2.8 L g/dl
(3.5-5.0)
08/05/24 13:50
08/05/24 13:50
Vital Signs
Initial and Last Documented VS:
Initial Vital Signs
Temp Pulse Resp BP Pulse Ox
98.4 F 88 16 117/57 95
08/05/24 13:40 08/05/24 13:40 08/05/24 13:40 08/05/24 13:40 08/05/24 13:40
Last Documented Vital Signs
Temp Pulse Resp BP Pulse Ox
98.4 F 81 15 135/58 96
08/05/24 13:40 08/05/24 19:00 08/05/24 19:00 08/05/24 18:03 08/05/24 19:00
<Deisy East, DO - Last Filed: 08/05/24 18:34>
Orders/Labs/Results
Orders:
Orders
08/05/24 13:38
Electrocardiogram (*1) Urgent
Reason for Study: Shortness of Breath
EKG- Treatment ONCE
08/05/24 13:42
CXR2 [CR Chest - 2 Views ] Urgent
Comment:
Reason For Exam: cough for two wks
08/05/24 13:50
COVID-19 Antigen Urgent
Source: Nasal Swab
Complete Blood Count/With Diff Urgent
Comprehensive Metabolic Panel Urgent
NT-proBNP Urgent
08/05/24 17:56
0.9% Sodium Chloride 500 ml [Nss] 500 ml IV BOLUS
08/05/24 18:05
Azithromycin [Zithromax] 500 mg PO NOW STA
CefTRIAXone [Rocephin] 1,000 mg IV NOW STA
08/05/24 18:13
Lactic Acid Stat
Blood Culture Urgent
JACKIE Source: Blood/Venous
Specimen Description:
08/05/24 18:15
Piperacillin/Tazo 4.5 Gram [Zosyn] 4.5 gram in 100 ml IV NOW
Abnormal Lab Results
08/05/24
13:50
WBC 14.7 H 10^3/uL
(4.8-10.8)
RBC 2.95 L 10^6/uL
(4.20-5.40)
Hgb 9.0 L g/dL
(12.0-16.0)
Hct 26.8 L %
(37.0-47.0)
Abs Immat Gran (auto) 0.2 H 10^3/uL
(0-0.05)
Absolute Neuts (auto) 12.3 H 10^3/uL
(1.4-6.5)
Absolute Monos (auto) 1.0 H 10^3/uL
(0.1-0.6)
Immature Gran % 1.2 H %
(0-0.5)
Neutrophils % 83.4 H %
(42.2-75.2)
Lymphocytes % 8.2 L %
(20.5-51.1)
BUN 32 H mg/dl
(7-17)
Glucose 115 H mg/dl
(70-99)
Total Protein 5.2 L g/dl
(6.3-8.2)
Albumin 2.8 L g/dl
(3.5-5.0)
08/05/24 13:50
08/05/24 13:50
Vital Signs
Initial and Last Documented VS:
Initial Vital Signs
Temp Pulse Resp BP Pulse Ox
98.4 F 88 16 117/57 95
08/05/24 13:40 08/05/24 13:40 08/05/24 13:40 08/05/24 13:40 08/05/24 13:40
Last Documented Vital Signs
Temp Pulse Resp BP Pulse Ox
98.4 F 81 15 135/58 96
08/05/24 13:40 08/05/24 19:00 08/05/24 19:00 08/05/24 18:03 08/05/24 19:00
<Abdoul Naranjo MD, Resident - Last Filed: 08/05/24 19:40>
MDM/Problems Addressed
Differential Diagnosis Includes:
community acquired pneumonia, aspiration pneumonia, interstitial lung disease, atrial fibrillation, cHFpEF
MDM/Problems Addressed:
CXR indicative of lobar pneumonia. CURB-65 score of 2 points - moderate risk group: 6.8% 30-day mortality. Will check lactate and start piperacillin-tazobactam since there are concerns for aspiration pneumonia. Gentle IV hydration considering cHFpEF.
Hypotensive and tachycardic at home. Progressive weakness and not able to tolerate oral intake; will admit.
Chronic conditions affecting care:
CREST syndrome, cHFpEF, permanent Afib
<Abdoul Naranjo MD, Resident - Last Filed: 08/05/24 19:40>
*Critical Care Note
Total Time (30-74mins, 75-104mins- exclusive of procedures): Not Applicable
ED Attending Note
<Abdoul Naranjo MD, Resident - Last Filed: 08/05/24 19:40>
-
Portions of this chart may have been created with voice recognition software.� Occasional wrong word or��sound alike� substitutions may have occurred due to the inherent limitations of voice recognition software.
<Deisy East, - Last Filed: 08/05/24 18:34>
ED Attending Note
Patient seen and examined by attending physician: Yes
I performed the substantive portion of visit, reviewed & personally made and approve the management plan that is documented in note by myself or RENATA.: Yes
I performed a history and physical exam of patient and discussed management with resident, I reviewed resident's note and agree with documented findings and plan of care.: Yes
ED Attending Note:
74-year-old female with history of crest syndrome, A-fib on Eliquis, heart failure presenting for 3 weeks of cough, generalized weakness, fatigue. Patient arrives with family who notes that patient has been less active, has not been eating.
Symptoms started after she ate, with concern for aspiration. Patient also has not been sleeping. No report of any fevers. They also are concerned because her blood pressure has been low at home when her heart rate has been elevated. Patient
feels short of breath, denies chest pain. Cough is nonproductive. Vital signs within normal limits.
On exam, patient is in no acute distress, active dry cough. Otherwise no significant respiratory distress. On pulmonary examination, rhonchorous breath sounds to left lung field. Patient had laboratory analysis prior to my assessment,
leukocytosis. Pending chest x-ray imaging for concern of pneumonia.
18:20 - Chest x-ray shows a moderate size left basilar pneumonia. In discussion with family, they feel that patient is not doing well at home with her symptoms given that she is not eating. And prior to arrival, can get into the car. For this
reason we will admit to the hospital for IV antibiotics. In the setting of likely aspiration pneumonia, will start on Zosyn. Will add blood culture and lactic acid, currently meeting sepsis criteria
Discharge Plan
Departure
Patient Disposition: Admit
Date of Disposition: 08/05/24
Time of Disposition: 19:38
Presentation/result/management discussed w/ accepting MD/DO: Hospitalist
Patient with high blood pressure during this ER visit?: No
Discharge Problem:
Community acquired pneumonia
Prescriptions:
No Action
multivitamin Tablet
1 tab PO DAILY
losartan 50 mg Tablet
50 mg PO DAILY
furosemide 40 mg Tablet
40 mg PO DAILY
carvedilol 25 mg Tablet
25 mg PO BID
Eliquis 5 mg Tablet
5 mg PO BID
atorvastatin 40 mg tablet
40 mg PO QPM
aspirin 81 mg Tablet
81 mg PO DAILY
clopidogrel 75 mg tablet
75 mg PO DAILY Qty: 90 3RF
pantoprazole 40 mg tablet,delayed release (DR/EC)
40 mg PO DAILY Qty: 90 3RF
amoxicillin-pot clavulanate 875-125 mg tablet
1 tab PO BID 10 Days Qty: 20 0RF
Interventions
Interventions:
*Risk Screen - Suicide Last Done: 08/05/24 13:40
*Neglect/Abuse Screening Last Done: 08/05/24 13:40
ED- Cardiac Assessment Last Done: 08/05/24 18:01
ED- Pulmonary Assessment Last Done: 08/05/24 18:01
Discharge Date and Time
Print Language: [email or web address]
[2024-08-05 17:20] VITALS: BP 134/69
[2024-08-05 17:58] VITALS: BMI 24.8
[2024-08-05 18:01] VITALS: BP 135/58
[2024-08-05 18:03] VITALS: BP 135/58
[2024-08-05] MEDS: NSS 500 IV (18:12)
[2024-08-05 18:34] LABS: Lactic Acid 1.5 mmol/L (0.7-2.0)
[2024-08-05] MEDS: ZOSYN 100 IV (18:34)
--- NOTE | 2024-08-05 20:27 | HPS.HSE ---
Addendum entered and electronically signed by BUBBA Joe 08/05/24 22:30:
UPDATE:
According to the patient's daughter she vomited and was choking approximately 2 to 3 weeks ago then developed this dry persistent cough since then
Will change IV antibiotics Zithromax Rocephin to single IV Zosyn to cover for aspiration pneumonia
Original Note:
Family Physician
-
Family Physician: NOT KNOW UNKNOWN - PT DOES
Chief Complaint
-
Weakness, persistent cough, intermittent chills, decreased oral intake
History of Present Illness
74-year-old female who reports history of aspiration pneumonia and recent prednisone taper starting at 5 tablets x 2, 4 tablets x 2, 3 x 2, will 2 x 2, 1 x 2, she is unsure of the dosage. She reports the cough has persisted along with
weakness,intermittent chills and inability to tolerate oral intake today. She has history of crest syndrome . Other past medical history includes permanent A-fib status post ablation, crest syndrome, chronic heart failure preserved EF, HTN, HLD,
GERD, CAD with cardiac stent, anemia
Medical History
Past Medical History
Past Medical History: Reports Other
Additional Past Medical History:
permanent A-fib status post ablation
CREST syndrome
Chronic heart failure preserved EF
HTN
HLD
GERD
CAD with cardiac stent
anemia
Past Surgical History: Reports Other
Additional Past Surgical History:
Cardiac stent
Right knee replacement
Cataract extraction
A-fib post ablation
Social History
Tobacco: Non-smoker
Alcohol: None
Drug: None
Personal: Single
Living: With Family (Lives with her daughter)
Employment: Retired
Family History
Family History: Other (Mother renal disease, father ME age 50 )
Allergies / Home Medications
Allergies reflects when Allergies were last updated in [employer].
Home Medications with original date entered in [employer]
Allergy/Medication List:
Allergies
Allergy/AdvReac Type Severity Reaction Status Date / Time
Sulfa (Sulfonamide Allergy Face gets Verified 08/05/24 17:57
Antibiotics) flush
Home Medications
apixaban 5 mg tablet (Eliquis) 5 mg PO BID blood thinner 12/22/23
carvedilol 25 mg tablet 25 mg PO BID htn 12/22/23
furosemide 40 mg tablet 40 mg PO DAILY water pill 12/22/23
losartan 50 mg tablet 25 mg PO DAILY Blood Pressure 12/22/23
multivitamin 1 tab PO DAILY Supplement 12/22/23
atorvastatin 40 mg tablet 40 mg PO QPM cholesterol 12/28/23
clopidogrel 75 mg tablet 75 mg PO DAILY #90 tabs 01/29/24
pantoprazole 40 mg tablet,delayed release 40 mg PO DAILY #90 tabs 01/29/24
Review of Systems
-
History Source: Patient
A 12 point ROS was completed and negative except as noted: Yes
Constitutional: Reports Fatigue and Chills; Denies Fever
EENT: Denies Sore Throat or Runny Nose
Respiratory: Reports Cough (Persistent dry); Denies Trouble Breathing
Cardiac: Denies Chest Pain, Diaphoresis or Palpitations
Abdomen/GI: Reports Anorexia; Denies Abdominal Pain, Nausea, Vomiting, Diarrhea or Constipated
: Denies Dysuria, Frequency, Flank Pain, Incontinence or Difficulty Voiding
Musculoskeletal: Denies Joint Pain, Joint Swelling or Edema
Skin: Denies Itching or Rash
Neurological: Reports Weakness (Generalized); Denies Dizzy or Headache
Endocrine: Reports No Symptoms
Hematologic/Lymphatic: Reports No Symptoms
Psych: Reports Calm
Physical Exam
Vital Signs
Vital Signs
Temp Pulse Resp BP Pulse Ox
100.2 F 86 15 135/58 95
08/05/24 20:09 08/05/24 20:09 08/05/24 20:09 08/05/24 18:03 08/05/24 20:09
Physical Exam
General: Comfortable, Conversant and Chills; No Pain or Fever
HEENT: NormoCephalic, Anicteric, Moist mucous membranes, PERRLA, [place] Conjunctivae and No Ptosis
Respiratory: Rhonchi (Rhonchi left lung base, right lung CTA); No Wheezes
Cardiac: S1/S2 and Regular Rhythm; No Murmur, Rub, Gallop or Peripheral Edema
Breast: Deferred by me
GI: Soft, Non Tender, Non Distended, Normal Bowel Sounds and No Hepatosplenomegaly
Rectal: Deferred by Provider
Genito-urinary: Deferred by me
Musculoskeletal: No Clubbing, No Cyanosis and No Edema
Skin: Warm and Dry; No Rash
Neuro: AO x 3, No Motor Deficits, Nonfocal/grossly intact and No Sensory Deficits; No Slurred Speech, Facial Droop, Tremors or Sedated
Psych: Calm
Laboratory Results
-
08/05/24 13:50
08/05/24 13:50
Laboratory Results
Lactic Acid 1.5 mmol/L (0.7-2.0) 08/05/24 18:13
Total Bilirubin 0.5 mg/dl (0.2-1.3) 08/05/24 13:50
AST 19 U/L (14-36) 08/05/24 13:50
ALT 25 U/L (0-35) 08/05/24 13:50
Alkaline Phosphatase 63 U/L (38-126) 08/05/24 13:50
Data Reviewed
-
Diagnostic Radiology: Report Reviewed by me
Lab Data: Labs Reviewed by me
Impression/Plan
-
Impression/plan:
Admit to Tele
#Sepsis 2/2 moderate Left basilar pneumonia
#Hx recent aspiration pneumonia and prednisone use-symptoms of cough, weakness, orthopnea
WBC 14.7 with left shift, temp 100.2, HR 86, 135/58
COVID-negative
-Sputum culture
-Blood culture x 1
-Patient given IV Zithromax, IV Rocephin, IV Zosyn
-Will continue
-Follow CBC, BMP
-Mucinex 600 mg twice daily and phenergen with codiene prn persistent cough
-Incentive spirometry
#CREST syndrome
-symptoms of Hand reynauds, feet and tight hand joints hard to make fist
#Permanent A-fib
-Continue Eliquis 5 mg twice daily
#HTN�benign
BP 135/58
-Continue carvedilol 25 mg twice daily, losartan 25 mg daily with hold parameters
#HLD
-Continue atorvastatin 40 mg every afternoon
#Chronic heart failure preserved EF
I/O, daily weights
-hold Lasix 40 mg daily
#CAD with cardiac stent january 2024
-Continue carvedilol 25 mg twice daily with hold parameters, statin 40 mg every afternoon
cont plavix 75 mg , cont eliquis pt was on prior asa
#GERD
-Continue Protonix 40 mg daily
#Anemia-normocytic
#Hx iron def anemia
Hgb 9 was 10�11.9 December to February 2024
-Check iron panel, B12, folate
DVT prophylaxis
Continue RADIO FREQUENCY ENGINEER Eliquis 5 mg twice daily
Full code
--- NOTE | 2024-08-05 21:29 | W.PN.UPDATE ---
Update Note
Progress Note Update
This is an addendum to the H&P written by Sheeba Bates on 08/05/2024. Patient seen and examined independently with SUPERVISOR ELECTROLYTIC TINNING.
74-year-old female past medical history of primary atrial fibrillation status post ablation, CAD status post 10, chronic HFpEF, CREST syndrome, hypertension, hyperlipidemia, GERD, chronic anemia presenting with dry cough for 2 weeks with chills.
Chest x-ray shows moderate left basilar pneumonia. Patient clinically with sepsis secondary to community-acquired pneumonia.
IV fluids given. COVID-negative. Check blood culture. Check sputum culture if able. Ceftriaxone/azithromycin. Mucinex. Hold further IV fluids due to cardiac BNP of 3000 and mild lower extremity edema and history of CHF. Continue Lasix.
[2024-08-05] MEDS: COREG 25 MG PO (23:27)
[2024-08-05] MEDS: MUCINEX 600 MG PO (23:27)
[2024-08-05] MEDS: ELIQUIS 5 MG PO (23:30)
[2024-08-05] MEDS: ZOSYN 50 IV (23:30)
[2024-08-06] VITALS (9 sets, daily range): BP systolic 78–123; BP diastolic 40–83; PULSE 79; O2SAT 98; BMI 25.4
[2024-08-06] MEDS: PHENERGAN WITH CODEINE SYRUP 5 ML PO ×3 (00:40→13:19)
[2024-08-06] MEDS: TYLENOL 650 MG PO ×2 (00:40→16:03)
[2024-08-06] MEDS: ZOSYN 50 IV ×4 (05:43→23:03)
[2024-08-06 06:02] LABS: % Basophils 0.1 % (0-2); % Eosinophils 0.2 % (0-6); % Immature Granulocytes 1.3 % (0-0.5); % Lymphocytes 12.7 % (20.5-51.1); % Monocytes 8.2 % (1.7-9.3); % Neutrophils 77.5 % (42.2-75.2); Absolute Immature Granulocytes 0.1 10^3/uL (0-0.05); Absolute Lymphocytes 1.3 10^3/uL (1.2-3.4); Absolute Monocytes 0.8 10^3/uL (0.1-0.6); Hematocrit 24.9 % (37.0-47.0); Hemoglobin 8.3 g/dL (12.0-16.0); Mean Corp Hgb Conc. 33.3 g/dL (33.0-37.0); Mean Corpuscular Hgb 30.3 pg (27.0-31.0); Mean Corpuscular Volume 90.9 fL (81.0-99.0); Mean Platelet Volume 9.9 fL (7.4-10.4); Nucleated Red Blood Cells % 0 %; Platelet Count 233 10^3/uL (130-400); Red Blood Cell Count 2.74 10^6/uL (4.20-5.40); Red Cell Dist. Width 13.8 % (11.5-14.5); White Blood Cell Count 10.3 10^3/uL (4.8-10.8)
[2024-08-06 06:28] LABS: ALT (SGPT) 19 U/L (0-35); AST (SGOT) 15 U/L (14-36); Albumin 2.6 g/dl (3.5-5.0); Alkaline Phosphatase 63 U/L (38-126); Blood Urea Nitrogen 25 mg/dl (7-17); Calcium 8.1 mg/dl (8.4-10.2); Carbon Dioxide 26 mmol/L (22-30); Chloride 104 mmol/L (98-107); Estimated Creatinine Clearance 40 ml/min; Glucose 91 mg/dl (70-99); Sodium 142 mmol/L (135-145); Total Bilirubin 0.7 mg/dl (0.2-1.3); Total Protein 4.7 g/dl (6.3-8.2); eGFR 58.75
[2024-08-06 06:34] LABS: Iron < 20 ug/dl (37-170)
[2024-08-06 07:02] LABS: Ferritin 61.7 ng/ml (11.1-264.0)
[2024-08-06 07:33] LABS: Folate > 20.0 ng/ml (2.76-20); Vitamin B12 472 pg/ml (239-931)
--- NOTE | 2024-08-06 08:21 | W.PN.HOSP.TC ---
Today's Communication/Plan
-
IV antibiotics. IV fluid. Swallowing eval
Assessment / Plan
Assessment / Plan
Physical exam:
General: Acutely ill
HEENT: Normocephalic, Atraumatic and Moist Mucous Membranes
Respiratory: Coarse crackles bilateral; Negative Wheezes, or Rhonchi
Cardiac: Regular Rhythm and S1/S2
GI: Soft, Nontender and Nondistended
Musculoskeletal: No Clubbing, No Cyanosis and No Edema
Neuro: Awake, Alert and Oriented
Psych: Calm
A/P:
#Sepsis 2/2 moderate Left basilar pneumonia
#Hx recent aspiration pneumonia and prednisone use-symptoms of cough, weakness, orthopnea
WBC 14.7 with left shift, temp 100.2, HR 86, 135/58--> WBC down to 10.3
COVID-negative
-Sputum culture
-Blood culture x 1
-Patient given IV Zithromax, IV Rocephin, IV Zosyn
-Will continue IV Zosyn for now
-Follow CBC, BMP
-Mucinex 600 mg twice daily and phenergen with codiene prn persistent cough
-Incentive spirometry
-Speech therapy for swallowing eval in the setting of crest syndrome--> plan for VSE
#CREST syndrome
-symptoms of Hand reynauds, feet and tight hand joints hard to make fist
#Permanent A-fib
-Continue Eliquis 5 mg twice daily
#HTN�benign
-Continue carvedilol 25 mg twice daily, losartan 25 mg daily with hold parameters
#HLD
-Continue atorvastatin 40 mg every afternoon
#Chronic heart failure preserved EF
I/O, daily weights
-hold Lasix 40 mg daily and will resume tomorrow
#CAD with cardiac stent january 2024
-Continue carvedilol 25 mg twice daily with hold parameters, statin 40 mg every afternoon
cont plavix 75 mg , cont eliquis pt was on prior asa
#GERD
-Continue Protonix 40 mg daily
#Anemia-normocytic
#Hx iron def anemia
Hgb 9 was 10�11.9 December to February 2024. Hemoglobin 8.3 today
-Check iron panel, B12, folate
DVT prophylaxis
Continue BUSINESS LAW INSTRUCTOR Eliquis 5 mg twice daily
Full code
Anticipated Discharge: > 48 hours
Subjective/Interval History
-
Date of Service: August 06, 2024
Patient still with cough, not much sputum production. Less shortness of breath. Afebrile
Objective Data
-
Labs:
Laboratory Results
08/06/24
05:06
WBC 10.3
Hgb 8.3 L
Hct 24.9 L
Plt Count 233
Sodium 142
Potassium 3.0 L
Chloride 104
Carbon Dioxide 26
BUN 25 H
Creatinine 1.0
Glucose 91
Calcium 8.1 L
Total Bilirubin 0.7
AST 15
ALT 19
Alkaline Phosphatase 63
Vital Signs:
Vital Signs
Temp Pulse Resp BP Pulse Ox
100.4 F H 80 22 116/51 95
08/06/24 00:00 08/06/24 00:00 08/06/24 00:00 08/05/24 23:27 08/06/24 00:00
I&O
08/05/24 08/06/24 08/07/24
06:59 06:59 06:59
Intake Total 340 / 340
Balance 340 / 340
[2024-08-06] MEDS: MUCINEX 600 MG PO ×2 (08:34→19:18)
[2024-08-06] MEDS: LASIX 40 MG PO (08:34)
[2024-08-06] MEDS: PLAVIX 75 MG PO (08:34)
[2024-08-06] MEDS: PROTONIX 40 MG PO (08:34)
[2024-08-06] MEDS: ELIQUIS 5 MG PO ×2 (08:34→19:18)
[2024-08-06] MEDS: THERAGRAN 1 TABLET PO (08:34)
[2024-08-06] MEDS: COREG 25 MG PO (08:35)
[2024-08-06] MEDS: COZAAR 25 MG PO (08:36)
--- NOTE | 2024-08-06 11:00 | PTOTSP ---
ST Acute Care Evaluation
Pt currently presents with clinical symptoms of suspected pharyngoesophageal dysphagia characterized by intermittent immediate and delayed coughing and throat clearing following swallow initiations of both solids and liquids - difficult to
differentiate from baseline cough and difficult to determine if from penetration/aspiration from above or from retrograde flow from below given CREST syndrome/severe GERD/anticipated esophageal dysmotility.
Recommendations:
- Continue with regular solids, thin liquids, meds as tolerated.
- Aspiration and reflux precautions.
- VFSS for more information.
- SOIL TESTER to f/u and provide recommendations once VFSS has been completed.
- Consider GI consult.
[2024-08-06] MEDS: NSS 1000 IV ×2 (12:25→23:05)
[2024-08-06] MEDS: KCL 40 MEQ PO ×2 (13:52→17:15)
--- NOTE | 2024-08-06 15:19 | PTOTSP ---
Video Swallow Study
Summary: WFL oral, mild pharyngeal dysphagia, no aspiration. Distal esophageal retention on esophageal sweep. Patient with known risk factors for esophageal dysphagia (i.e., CREST, GERD). GI consult warranted.
Recommend:
1. Regular, Thin Liquids
2. Strategies: upright to 90 degrees, pick soft/moist foods, alternate sips/bites, reflux precautions
3. Medications as best tolerated
4. GI consult
No further dysphagia therapy with an TRANSPORTATION WORKER warranted at this time. Please reconsult as appropriate.
[2024-08-06] MEDS: LIPITOR 40 MG PO (17:14)
[2024-08-06] MEDS: COREG PO (19:18)
[2024-08-07] MEDS: PHENERGAN WITH CODEINE SYRUP 5 ML PO ×6 (00:55→23:05)
[2024-08-07 03:46] VITALS: BP 118/54
[2024-08-07] MEDS: TYLENOL 650 MG PO ×2 (04:01→23:04)
[2024-08-07] MEDS: ZOSYN 50 IV ×4 (05:18→23:04)
[2024-08-07 06:00] VITALS: BMI 25.8
[2024-08-07 07:38] VITALS: BP 123/57
[2024-08-07 08:50] LABS: % Immature Granulocytes 1.7 % (0-0.5); % Lymphocytes 16.1 % (20.5-51.1); % Monocytes 7.9 % (1.7-9.3); % Neutrophils 73.3 % (42.2-75.2); Absolute Eosinophils 0.1 10^3/uL (0-0.7); Absolute Immature Granulocytes 0.1 10^3/uL (0-0.05); Absolute Lymphocytes 1.2 10^3/uL (1.2-3.4); Absolute Monocytes 0.6 10^3/uL (0.1-0.6); Absolute Neutrophils 5.6 10^3/uL (1.4-6.5); Hemoglobin 8.1 g/dL (12.0-16.0); Mean Corp Hgb Conc. 32.4 g/dL (33.0-37.0); Mean Corpuscular Hgb 29.8 pg (27.0-31.0); Mean Corpuscular Volume 91.9 fL (81.0-99.0); Mean Platelet Volume 9.8 fL (7.4-10.4); Nucleated Red Blood Cells % 0 %; Platelet Count 218 10^3/uL (130-400); Red Blood Cell Count 2.72 10^6/uL (4.20-5.40); White Blood Cell Count 7.7 10^3/uL (4.8-10.8)
--- NOTE | 2024-08-07 09:06 | W.PN.HOSP.TC ---
Addendum entered and electronically signed by Elliot Nogueira MD 08/07/24 17:47:
Hypokalemia
Original Note:
Today's Communication/Plan
-
Continue IV antibiotic
Assessment / Plan
Assessment / Plan
Physical exam:
General: Acutely ill
HEENT: Normocephalic, Atraumatic and Moist Mucous Membranes
Respiratory: Coarse crackles bilateral; Negative Wheezes, or Rhonchi
Cardiac: Irregular rate and rhythm and S1/S2
GI: Soft, Nontender and Nondistended
Musculoskeletal: No Clubbing, No Cyanosis and No Edema
Neuro: Awake, Alert and Oriented
Psych: Calm
A/P:
#Sepsis 2/2 aspiration pneumonia
-WBC 14.7 with left shift, temp 100.2, HR 86, 135/58---> WBC down to 7.7 and afebrile
-COVID-negative
-Will continue IV Zosyn
-Follow CBC, BMP
-Mucinex 600 mg twice daily and Phenergan with codeine prn persistent cough
-Incentive spirometry
-Speech therapy for swallowing eval in the setting of crest syndrome--> s/p VSE and ok and will have her to see gi op
-PT OT eval and they recommend home health
-Check sputum culture
-Discussed with daughter at bedside today--> continue to monitor inpatient progress and plan for outpatient cardio, rheumatology, pulmonary, and GI eval.
#Blood cultures positive
Suspect contaminant but await for identification
Repeat blood cultures today
#Hypokalemia
Replete and trend
#CREST syndrome
-symptoms of Hand Raynaud's, feet and tight hand joints hard to make fist
-She follows up with rheumatology as outpatient
-She also follows up with GI as outpatient and is in process of changing
#Permanent A-fib
-Continue Eliquis 5 mg twice daily
-Continue Coreg
-Planning ablation as outpatient over the next few weeks
#HTN�benign
-Continue carvedilol 25 mg twice daily, with hold parameters
-Hold losartan
#HLD
-Continue atorvastatin 40 mg every afternoon
# Acute on chronic heart failure preserved EF
-Given IV Lasix upon admission. Does not appear volume overloaded at the moment.
-Continue to monitor I/O, daily weights
-Continue oral Lasix 40 mg daily
#CAD with cardiac stent january 2024
-Continue carvedilol 25 mg twice daily with hold parameters, statin 40 mg every afternoon
cont Plavix 75 mg , cont Eliquis pt was on prior asa
#GERD
-Continue Protonix 40 mg daily
#Anemia-normocytic
#Hx iron def anemia
Hgb 9 was 10�11.9 December to February 2024. Hemoglobin 8.1 today
-Check iron panel, B12, folate-->consistent with iron deficiency
DVT prophylaxis
Continue DIGITAL MARKETING OFFICER Eliquis 5 mg twice daily
Full code
Anticipated Discharge: 24 - 48 hours
Subjective/Interval History
-
Date of Service: August 07, 2024
Feels better overall. Patient still having some cough and shortness of breath. Afebrile
Objective Data
-
Labs:
Laboratory Results
08/07/24
08:28
WBC 7.7
Hgb 8.1 L
Hct 25.0 L
Plt Count 218
Sodium Pending
Potassium Pending
Chloride Pending
Carbon Dioxide Pending
BUN Pending
Creatinine Pending
Glucose Pending
Calcium Pending
Total Bilirubin Pending
AST Pending
ALT Pending
Alkaline Phosphatase Pending
Vital Signs:
Vital Signs
Temp Pulse Resp BP Pulse Ox
98.5 F 96 19 123/57 95
08/07/24 07:38 08/07/24 07:38 08/07/24 07:38 08/07/24 07:38 08/07/24 07:38
I&O
08/06/24 08/07/24 08/08/24
06:59 06:59 06:59
Intake Total 340 / 340 0 / 0 950 / 950
Balance 340 / 340 0 / 0 950 / 950
[2024-08-07] MEDS: COREG 25 MG PO (09:12)
[2024-08-07] MEDS: COZAAR 25 MG PO (09:13)
[2024-08-07] MEDS: PLAVIX 75 MG PO (09:13)
[2024-08-07] MEDS: PROTONIX 40 MG PO (09:13)
[2024-08-07] MEDS: ELIQUIS 5 MG PO ×2 (09:13→19:35)
[2024-08-07] MEDS: MUCINEX 600 MG PO ×2 (09:13→19:35)
[2024-08-07] MEDS: LASIX 40 MG PO (09:13)
[2024-08-07] MEDS: THERAGRAN 1 TABLET PO (09:14)
[2024-08-07 10:01] LABS: ALT (SGPT) 16 U/L (0-35); AST (SGOT) 11 U/L (14-36); Albumin 2.4 g/dl (3.5-5.0); Alkaline Phosphatase 67 U/L (38-126); Blood Urea Nitrogen 17 mg/dl (7-17); Carbon Dioxide 26 mmol/L (22-30); Chloride 107 mmol/L (98-107); Estimated Creatinine Clearance 37 ml/min; Glucose 84 mg/dl (70-99); Potassium 3.8 mmol/L (3.5-5.1); Sodium 141 mmol/L (135-145); Total Bilirubin 0.7 mg/dl (0.2-1.3); Total Protein 4.6 g/dl (6.3-8.2)
[2024-08-07 11:20] VITALS: BP 118/55
--- NOTE | 2024-08-07 12:48 | PN.CDI ---
CDI
- -
CDI:
Physician Documentation Request
Admit Date: 08/05/24 21:38
Dear Doctor Mirlande,
Clinical Indicators:
Patient admitted with sepsis due to left basilar pneumonia.
Potassium chloride 40 meq po x 2 doses given.
Potassium level:
08/06/24
05:06
Potassium 3.0 L
Based on the above, could you clarify in the progress notes, the appropriate diagnosis, if significant, that supports the above abnormalities and additional evaluation, monitoring and/or treatment rendered:
Hypokalemia
Abnormal lab value, clinically insignificant
Other, please specify
Use of terms such as suspected, likely, concern for, or probable (associated with a specific diagnosis that is being evaluated, monitored, or treated as if it exists) are acceptable and can be coded in the inpatient setting, when documented at the
time of discharge.
Thank you,
Farida Tai RN BSN
CDI Specialist
available via tiger text
Please use your independent medical judgment in providing your response.
[2024-08-07 15:57] VITALS: BP 118/58
[2024-08-07] MEDS: NSS IV (16:48)
[2024-08-07] MEDS: LIPITOR 40 MG PO (17:11)
--- NOTE | 2024-08-07 17:26 | CM ---
Alert awake oriented patient who lives with her dgt Malaika who lives in a home with 4 steps to enter and 4 steps bed and bathroom.She is independent in driving and in all activities of daily living.Offered VN she declined.She said she is starting a
[facility].
No adaptive devices
Never had VN/SNF
Pharmacy [facility]
PCP Dr Aiden [facility]
PLAN Home no needs She set up her own out pt PT
[2024-08-07] MEDS: COREG PO (19:35)
[2024-08-07] MEDS: CHLORASEPTIC/SORE THROAT SPRAY 1 SPRAY PO (19:36)
[2024-08-07 19:40] VITALS: BP 109/52
[2024-08-07 23:10] VITALS: BP 137/59
[2024-08-08] VITALS (7 sets, daily range): BP systolic 94–124; BP diastolic 39–56; PULSE 87; BMI 25.9
[2024-08-08] MEDS: ZOSYN 50 IV ×4 (05:37→23:49)
[2024-08-08 08:07] LABS: Blood Urea Nitrogen 16 mg/dl (7-17); Carbon Dioxide 27 mmol/L (22-30); Chloride 105 mmol/L (98-107); Estimated Creatinine Clearance 37 ml/min; Glucose 76 mg/dl (70-99); Sodium 141 mmol/L (135-145)
--- NOTE | 2024-08-08 08:35 | W.PN.HOSP.TC ---
Addendum entered and electronically signed by Elliot Nogueira MD 08/08/24 12:48:
Updated daughter over the phone again today
Original Note:
Today's Communication/Plan
-
IV antibiotics. Chest x-ray.
Assessment / Plan
Assessment / Plan
Physical exam:
General: Acutely ill
HEENT: Normocephalic, Atraumatic and Moist Mucous Membranes
Respiratory: Coarse crackles bilateral; Negative Wheezes, or Rhonchi
Cardiac: Irregular rate and rhythm and S1/S2
GI: Soft, Nontender and Nondistended
Musculoskeletal: No Clubbing, No Cyanosis and No Edema
Neuro: Awake, Alert and Oriented
Psych: Calm
A/P:
#Sepsis 2/2 aspiration pneumonia
-WBC 14.7 with left shift, temp 100.2, HR 86, 135/58---> WBC down to 7.7 and afebrile
-COVID-negative
-Will continue IV Zosyn
-Follow CBC, BMP
-Mucinex 600 mg twice daily and Phenergan with codeine prn persistent cough
-Incentive spirometry
-Speech therapy for swallowing eval in the setting of crest syndrome--> s/p VSE and ok and will have her to see gi op
-PT OT eval and they recommend home health
-Check sputum culture
-Discussed with daughter at bedside yesterday--> continue to monitor inpatient progress and plan for outpatient cardio, rheumatology, pulmonary, and GI eval.
-Follow-up chest x-ray today shows persistent consolidation in the left lower lobe. Will request pulmonary for evaluation.
#Blood cultures positive-->CoNS
Suspect contaminant but await for identification
Repeated blood cultures yesterday--> so far no growth
No SIRS over the last 24 hrs
#Hypokalemia
Replete and trend
#CREST syndrome
-symptoms of Hand Raynaud's, feet and tight hand joints hard to make fist
-She follows up with rheumatology as outpatient
-She also follows up with GI as outpatient and is in process of changing
#Permanent A-fib
-Continue Eliquis 5 mg twice daily
-Continue Coreg
-Planning ablation as outpatient over the next few weeks
#HTN�benign
-Continue carvedilol 25 mg twice daily, with hold parameters
-Hold losartan
#HLD
-Continue atorvastatin 40 mg every afternoon
# Acute on chronic heart failure preserved EF
-Given IV Lasix upon admission. Does not appear volume overloaded at the moment.
-Continue to monitor I/O, daily weights
-Continue oral Lasix 40 mg daily
#CAD with cardiac stent january 2024
-Continue carvedilol 25 mg twice daily with hold parameters, statin 40 mg every afternoon
cont Plavix 75 mg , cont Eliquis pt was on prior asa
#GERD
-Continue Protonix 40 mg daily
#Anemia-normocytic
#Hx iron def anemia
Hgb 9 was 10�11.9 December to February 2024. Hemoglobin 8.1 today
-Check iron panel, B12, folate-->consistent with iron deficiency
DVT prophylaxis
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
Full code
Anticipated Discharge: 24 - 48 hours
Subjective/Interval History
-
Date of Service: August 08, 2024
Feels better overall, afebrile
Objective Data
-
Labs:
Laboratory Results
08/08/24
07:12
Sodium 141
Potassium 4.0
Chloride 105
Carbon Dioxide 27
BUN 16
Creatinine 1.1 H
Glucose 76
Calcium 8.0 L
Vital Signs:
Vital Signs
Temp Pulse Resp BP Pulse Ox
98.1 F 87 20 110/49 94
08/08/24 07:53 08/08/24 07:53 08/08/24 07:53 08/08/24 07:53 08/08/24 07:53
I&O
08/07/24 08/08/24 08/09/24
06:59 06:59 06:59
Intake Total 0 / 0 1190 / 1190
Balance 0 / 0 1190 / 1190
[2024-08-08] MEDS: PLAVIX 75 MG PO (08:48)
[2024-08-08] MEDS: COREG 25 MG PO (08:48)
[2024-08-08] MEDS: PROTONIX 40 MG PO (08:48)
[2024-08-08] MEDS: THERAGRAN 1 TABLET PO (08:48)
[2024-08-08] MEDS: MUCINEX 600 MG PO ×2 (08:48→20:37)
[2024-08-08] MEDS: ELIQUIS 5 MG PO ×2 (08:48→20:37)
[2024-08-08] MEDS: LASIX 40 MG PO (08:48)
--- NOTE | 2024-08-08 16:55 | CM ---
Continues on IV antibiotics.
CXR done .
RN OSTOMY independent.
Pt will resume her out pt PT after dc.
PLAN Home no needs
[2024-08-08] MEDS: LIPITOR 40 MG PO (17:43)
[2024-08-08] MEDS: PHENERGAN WITH CODEINE SYRUP 5 ML PO (18:26)
[2024-08-08] MEDS: COREG PO (20:37)
[2024-08-09] VITALS (7 sets, daily range): BP systolic 92–136; BP diastolic 45–66; PULSE 79; O2SAT 97; BMI 25.5
[2024-08-09] MEDS: ZOSYN 50 IV ×3 (05:26→17:56)
[2024-08-09] MEDS: PROTONIX 40 MG PO (08:32)
[2024-08-09] MEDS: MUCINEX 600 MG PO ×2 (08:32→20:08)
[2024-08-09] MEDS: PLAVIX 75 MG PO (08:32)
[2024-08-09] MEDS: COREG PO ×2 (08:33→20:07)
[2024-08-09] MEDS: ELIQUIS 5 MG PO ×2 (08:33→20:08)
[2024-08-09] MEDS: LASIX PO (08:33)
[2024-08-09] MEDS: THERAGRAN 1 TABLET PO (08:33)
--- NOTE | 2024-08-09 09:29 | W.PN.HOSP.TC ---
Today's Communication/Plan
-
Continue IV antibiotics. Monitor blood pressure carefully.
Assessment / Plan
Assessment / Plan
Physical exam:
General: Acutely ill
HEENT: Normocephalic, Atraumatic and Moist Mucous Membranes
Respiratory: Coarse crackles bilateral; Negative Wheezes, or Rhonchi
Cardiac: Irregular rate and rhythm and S1/S2
GI: Soft, Nontender and Nondistended
Musculoskeletal: No Clubbing, No Cyanosis and No Edema
Neuro: Awake, Alert and Oriented
Psych: Calm
A/P:
#Sepsis 2/2 aspiration pneumonia
-WBC 14.7 with left shift, temp 100.2, HR 86, 135/58---> WBC down to 7.7 and afebrile
-COVID-negative
-Will continue IV Zosyn
-Follow CBC, BMP
-Mucinex 600 mg twice daily and Phenergan with codeine prn persistent cough
-Incentive spirometry
-Speech therapy for swallowing eval in the setting of crest syndrome--> s/p VSE and ok and will have her to see gi op
-PT OT eval and they recommend home health
-Check sputum culture
-Discussed with daughter prior--> continue to monitor inpatient progress and plan for outpatient cardio, rheumatology, pulmonary, and GI eval.
-Follow-up chest x-ray today shows persistent consolidation in the left lower lobe.
-Pulmonary consulted and appreciated input
#Hypotension
Medications held this morning so we will reevaluate if she needs further adjustments of medications or if she will be able to tolerate her cardiac medications
Repeat labs today to ensure stability
Monitor blood pressure closely and reevaluate
#Blood cultures positive-->CoNS
Suspect contaminant but await for identification
Repeated blood cultures yesterday--> so far no growth
No SIRS over the last 48 hrs
If cultures remain sterile, plan to discharge tomorrow
#Hypokalemia
Replete and trend
#CREST syndrome
-symptoms of Hand Raynaud's, feet and tight hand joints hard to make fist
-She follows up with rheumatology as outpatient
-She also follows up with GI as outpatient and is in process of changing
#Permanent A-fib
-Continue Eliquis 5 mg twice daily
-Continue Coreg
-Planning ablation as outpatient over the next few weeks
#HTN�benign
-Continue carvedilol 25 mg twice daily, with hold parameters
-Hold losartan
#HLD
-Continue atorvastatin 40 mg every afternoon
# Acute on chronic heart failure preserved EF
-Given IV Lasix upon admission. Does not appear volume overloaded at the moment.
-Continue to monitor I/O, daily weights
-Continue oral Lasix 40 mg daily
#CAD with cardiac stent january 2024
-Continue carvedilol 25 mg twice daily with hold parameters, statin 40 mg every afternoon
cont Plavix 75 mg , cont Eliquis pt was on prior asa
#GERD
-Continue Protonix 40 mg daily
#Anemia-normocytic
#Hx iron def anemia
Hgb 9 was 10�11.9 December to February 2024. Hemoglobin 8.1 today
-Check iron panel, B12, folate-->consistent with iron deficiency
DVT prophylaxis
Continue MANUFACTURING TECHNOLOGY ANALYST Eliquis 5 mg twice daily
Full code
Anticipated Discharge: 24 - 48 hours
Subjective/Interval History
-
Date of Service: August 09, 2024
Patient blood pressure on the low side today. Overall feels better. Less shortness of breath and no chest pain. Afebrile
Objective Data
-
Vital Signs:
Vital Signs
Temp Pulse Resp BP Pulse Ox
98.7 F 61 18 92/45 96
08/09/24 08:25 08/09/24 08:33 08/09/24 08:25 08/09/24 08:33 08/09/24 08:31
I&O
08/08/24 08/09/24 08/10/24
06:59 06:59 06:59
Intake Total 1190 / 1190
Balance 1190 / 1190
--- NOTE | 2024-08-09 10:24 | CON.PUL ---
Consultation
Consultation Request
Date/Time Consultation Requested: 08/09/2024-8 AM
Date/Time Consultation Performed: 08/09/2024-8:30 AM
Requesting Provider: Hospitalist
Performing Provider: Dr. Childers
Reason for Consultation: Shortness of breath
Medical History
-
Chief Complaint: Shortness of breath and aspiration
History of Present Illness:
74-year-old female patient with a history of crest syndrome, hypertension, hyperlipidemia, chronic heart failure, CAD with stent admitted with pneumonia possibly aspiration and pulmonary consulted for pneumonia and hypoxemia 08/09/2024. The patient
has some swallowing difficulties. She was evaluated by speech. She currently denies any shortness of breath at rest but has some dyspnea on exertion. She has minimal cough. She does not have a productive cough. She denies any chest pain, chest
tightness, wheezing, hemoptysis, abdominal pain, nausea, increased leg swelling. She does have some tightening of her fingers and cannot make a fist easily.
Past Medical History
Past Medical History: None (Hypertension. Hyperlipidemia. CAD/stent. Chronic heart failure. Atrial fibrillation. Crest syndrome.)
Social History
Tobacco: Non-smoker
Alcohol: None
Drug: None
Living: With Family
Occupational Exposures: No known asbestos exposure
Environmental Exposures: no known tuberculosis exposure
Family History
Family History: Other (Father-CAD. Mother-diabetes)
Allergies / Home Medications
Allergies
Allergy/AdvReac Type Severity Reaction Status Date / Time
Sulfa (Sulfonamide Allergy Face gets Verified 08/05/24 17:57
Antibiotics) flush
Home Medications
�Medication �Instructions �Recorded �Confirmed �Last Taken �Type
apixaban 5 mg tablet (Eliquis) 5 mg PO BID blood thinner 12/22/23 08/06/24 08/04/24 History
carvedilol 25 mg tablet 25 mg PO BID htn 12/22/23 08/06/24 08/04/24 History
furosemide 40 mg tablet 40 mg PO DAILY water pill 12/22/23 08/06/24 08/04/24 History
losartan 50 mg tablet 25 mg PO DAILY Blood Pressure 12/22/23 08/06/24 08/04/24 History
multivitamin 1 tab PO DAILY Supplement 12/22/23 08/06/24 08/04/24 History
atorvastatin 40 mg tablet 40 mg PO QPM cholesterol 12/28/23 08/06/24 08/04/24 History
clopidogrel 75 mg tablet 75 mg PO DAILY #90 tabs 01/29/24 08/06/24 08/04/24 Rx
pantoprazole 40 mg tablet,delayed 40 mg PO DAILY #90 tabs 01/29/24 08/06/24 08/04/24 Rx
release
albuterol sulfate 90 mcg/actuation 2 puff inhalation R Q6HPRN PRN sob 08/06/24 08/06/24 Unknown History
aerosol inhaler
famotidine 20 mg tablet (Pepcid) 20 mg PO BIDPRN PRN gerd 08/06/24 08/06/24 Unknown History
prednisone 10 mg tablet 10 mg PO DIRECTED 08/06/24 08/06/24 Unknown History
Review of Systems
-
Unable to Obtain full review of systems at this time due to: Other (Per HPI)
Vitals / Labs / Diagnostic Testing
Vital Signs
Temp Pulse Resp BP Pulse Ox
98.7 F 61 18 92/45 96
08/09/24 08:25 08/09/24 08:33 08/09/24 08:25 08/09/24 08:33 08/09/24 08:31
Lab Data
08/07/24 08:28
08/08/24 07:12
Microbiology
08/05/24 18:13 Blood/Venous Blood Culture - Preliminary
Coagulase neg. staphylococcus
Additional testing on request
08/05/24 18:13 Blood/Venous Gram Stain - Preliminary
08/07/24 17:59 Blood/Venous Blood Culture - Preliminary
No Growth in 24 hours- Final report to follow
08/07/24 16:58 Blood/Venous Blood Culture - Preliminary
No Growth in 24 hours- Final report to follow
Diagnostic Testing:
Physical Exam
-
Exam:
Well-nourished and well-developed in no apparent distress
HEENT-atraumatic, normocephalic
Neck-supple, no JVD, no bruit
Heart-regular rate and rhythm-no murmurs, rubs or gallops
Chest with diminished breath sounds, rare crackle and no wheezes
Back without tenderness
Abdomen-soft, nontender, nondistended, no hepatosplenomegaly
Extremities-no cyanosis, clubbing, edema and good peripheral pulses, some sclerodactyly
Integument-intact, no rashes, lesions or ecchymosis
Neurology-alert and oriented, nonfocal motor and sensory exam
Assessment
-
74-year-old female patient with a history of crest syndrome, hypertension, hyperlipidemia, chronic heart failure, CAD with stent admitted with pneumonia possibly aspiration and pulmonary consulted for pneumonia and hypoxemia 08/09/2024.
Pneumonia-recent aspiration
Leukocytosis-WBC 14.7
Qkujcl-ywioeemhqa-uhypgopjjh 8.1
Conditions present prior to admission:
Hypertension.
Hyperlipidemia.
CAD/stent.
Chronic heart failure.
Atrial fibrillation.
Crest syndrome.
Plan
Respiratory decompensation likely related to pneumonia-possibly aspiration
Supplemental oxygen
Mucolytics
Nebulizers if needed-currently without significant wheezing
Aspiration precautions
Speech therapy following-correspondence reviewed-thin liquids-known risk factors for esophageal dysphagia with crest and reflux
Monitor pleural effusion-thoracentesis if enlarges or clinically otherwise indicated to rule out parapneumonic process
Check cultures
Empiric antibiotics
Follow radiographically
Monitor hemoglobin
Transfuse as needed
DVT prophylaxis-on chronic Eliquis
GI prophylaxis-on pantoprazole
Nutrition with precautions
Increase activity
Reviewed with nursing as well as daughter at the bedside
The patient saw Dr. Maldonado once 09/25/2023-we will ask to follow back up after discharge
Diagnostic data:
Chest x-ray 08/05/2024-moderate left basilar pneumonia
Chest x-ray 08/08/2024-small left pleural effusion and adjacent atelectasis, slightly increased, new very small pleural effusion on the right
CT abdomen and pelvis 03/28/2024-lung bases are clear no pleural effusion, moderate sigmoid diverticulosis
Echocardiogram 05/13/2024-EF 55-60%, biatrial dilation with severe dilated left atrium, mild to moderate mitral regurgitation, aortic sclerosis, PA systolic 30-33
Cardiac catheterization-successful stenting of mid circumflex
[place] 09/25/23: FVC 2.61/100%, FEV1 1.89/97%, ratio 73%. Normal study.
[facility] 09/25/23: At rest, O2 99% on room air, heart rate 94. With ambulation, O2 radha 97%, max heart rate 160. 1/10 on dyspnea scale. Ambulated 900 feet.
Data Reviewed
-
PFT: Report reviewed by me
EKG: Report reviewed by me
Radiology: Image personally visualized and interpreted and Report reviewed by me
CT Scan: Report reviewed by me
Medical Tests (Nuc Med, Echo etc): Report reviewed by me
Labs: Labs reviewed by me
Total Time Spent with Patient (in minutes): 65
[2024-08-09 13:27] LABS: % Basophils 0.3 % (0-2); % Eosinophils 1.3 % (0-6); % Lymphocytes 18.8 % (20.5-51.1); % Monocytes 5.8 % (1.7-9.3); % Neutrophils 72.8 % (42.2-75.2); Absolute Eosinophils 0.1 10^3/uL (0-0.7); Absolute Immature Granulocytes 0.1 10^3/uL (0-0.05); Absolute Lymphocytes 1.1 10^3/uL (1.2-3.4); Absolute Monocytes 0.4 10^3/uL (0.1-0.6); Absolute Neutrophils 4.4 10^3/uL (1.4-6.5); Hematocrit 26.1 % (37.0-47.0); Hemoglobin 8.6 g/dL (12.0-16.0); Mean Corpuscular Hgb 31.2 pg (27.0-31.0); Mean Corpuscular Volume 94.6 fL (81.0-99.0); Mean Platelet Volume 10.1 fL (7.4-10.4); Nucleated Red Blood Cells % 0 %; Platelet Count 197 10^3/uL (130-400); Red Blood Cell Count 2.76 10^6/uL (4.20-5.40); Red Cell Dist. Width 13.8 % (11.5-14.5)
[2024-08-09 15:05] LABS: Blood Urea Nitrogen 15 mg/dl (7-17); Calcium 8.2 mg/dl (8.4-10.2); Carbon Dioxide 26 mmol/L (22-30); Chloride 101 mmol/L (98-107); Estimated Creatinine Clearance 34 ml/min; Glucose 130 mg/dl (70-99); Potassium 3.6 mmol/L (3.5-5.1); Sodium 138 mmol/L (135-145); eGFR 47.21
--- NOTE | 2024-08-09 15:45 | PTOTSP ---
issued and reviewed energy conservation education. pt verbalized understanding. pt has met or exceeded goals set during this hospitalization. no further OT needs identified at this time, will sign off.
--- NOTE | 2024-08-09 17:28 | CM ---
Continues on IV antibiotics.
Pulmonary involved.
CXR done .
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
Pt will resume her out pt PT after dc.
PLAN Home no needs
[2024-08-09] MEDS: LIPITOR 40 MG PO (17:56)
[2024-08-10] MEDS: ZOSYN 50 IV ×2 (05:34)
[2024-08-10 06:00] VITALS: BMI 25.7
[2024-08-10] MEDS: MUCINEX 600 MG PO (07:51)
[2024-08-10] MEDS: PROTONIX 40 MG PO (07:51)
[2024-08-10] MEDS: ELIQUIS 5 MG PO (07:51)
[2024-08-10] MEDS: THERAGRAN 1 TABLET PO (07:51)
[2024-08-10] MEDS: COREG 25 MG PO (07:52)
[2024-08-10] MEDS: LASIX 40 MG PO (07:52)
[2024-08-10] MEDS: PLAVIX 75 MG PO (07:52)
[2024-08-10 07:56] VITALS: BP 144/63
--- NOTE | 2024-08-10 08:45 | W.PN.HOSP.TC ---
Today's Communication/Plan
-
Discharge planning today
Assessment / Plan
Assessment / Plan
Physical exam:
General: No acute distress
HEENT: Normocephalic, Atraumatic and Moist Mucous Membranes
Respiratory: Clear to auscultation bilateral; Negative Wheezes, or Rhonchi
Cardiac: Irregular rate and rhythm and S1/S2
GI: Soft, Nontender and Nondistended
Musculoskeletal: No Clubbing, No Cyanosis and No Edema
Neuro: Awake, Alert and Oriented
Psych: Calm
A/P:
#Sepsis 2/2 aspiration pneumonia
-WBC 14.7 with left shift, temp 100.2, HR 86, 135/58---> WBC down to 7.7 and afebrile
-COVID-negative
-Change IV antibiotics to oral today.
-Follow CBC, BMP
-Mucinex 600 mg twice daily and Phenergan with codeine prn persistent cough
-Incentive spirometry
-Speech therapy for swallowing eval in the setting of crest syndrome--> s/p VSE and ok and will have her to see gi op
-PT OT eval and they recommend home health
-Check sputum culture
-Discussed with daughter prior--> continue to monitor inpatient progress and plan for outpatient cardio, rheumatology, pulmonary, and GI eval.
-Follow-up chest x-ray today shows persistent consolidation in the left lower lobe.
-Pulmonary consulted and appreciated input
-Plan to discharge home today
#Hypotension
Improved and can go back to her home regimen.
Prior to today:
Medications held this morning so we will reevaluate if she needs further adjustments of medications or if she will be able to tolerate her cardiac medications
Repeat labs today to ensure stability
Monitor blood pressure closely and reevaluate
#Blood cultures positive-->CoNS
Suspect contaminant but await for identification
Repeated blood cultures yesterday--> so far no growth
No SIRS over the last 48 hrs
If cultures remain sterile, plan to discharge tomorrow
#Hypokalemia
Replete and trend
#CREST syndrome
-symptoms of Hand Raynaud's, feet and tight hand joints hard to make fist
-She follows up with rheumatology as outpatient
-She also follows up with GI as outpatient and is in process of changing
#Permanent A-fib
-Continue Eliquis 5 mg twice daily
-Continue Coreg
-Planning ablation as outpatient over the next few weeks
#HTN�benign
-Continue carvedilol 25 mg twice daily, with hold parameters
-Hold losartan
#HLD
-Continue atorvastatin 40 mg every afternoon
# Acute on chronic heart failure preserved EF
-Given IV Lasix upon admission. Does not appear volume overloaded at the moment.
-Continue to monitor I/O, daily weights
-Continue oral Lasix 40 mg daily
#CAD with cardiac stent january 2024
-Continue carvedilol 25 mg twice daily with hold parameters, statin 40 mg every afternoon
cont Plavix 75 mg , cont Eliquis pt was on prior asa
#GERD
-Continue Protonix 40 mg daily
#Anemia-normocytic
#Hx iron def anemia
Hgb 9 was 10�11.9 December to February 2024. Hemoglobin 8.1 last time
-Check iron panel, B12, folate-->consistent with iron deficiency
DVT prophylaxis
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
Full code
Anticipated Discharge: Today
Subjective/Interval History
-
Date of Service: August 10, 2024
Patient doing well today. Afebrile. Blood pressure improved.
Objective Data
-
Vital Signs:
Vital Signs
Temp Pulse Resp BP Pulse Ox
98.7 F 76 18 144/63 95
08/10/24 07:56 08/10/24 07:56 08/09/24 23:55 08/10/24 07:56 08/10/24 07:56
I&O
08/09/24 08/10/24 08/11/24
06:59 06:59 06:59
Intake Total 1060 / 1060
Balance 1060 / 1060
[2024-08-10] MEDS: OMNICEF 300 MG PO (10:31)
[2024-08-10] MEDS: FIRST-MOUTHWASH BLM SUSPENSION 5 ML PO (10:46)
--- NOTE | 2024-08-10 11:48 | W.DCSUMMARY ---
Discharge Summary
Discharge Data
Date of Admission: 08/05/24
Date of Discharge: 08/10/24
-
Pending Results: No
Hospital Course
Patient 74 years old history of crest syndrome, hypertension, hyperlipidemia, CHF, CAD, A-fib, presented to the hospital with sepsis due to pneumonia and hypoxemia. Patient was treated with broad-spectrum IV antibiotics. She also had a video
swallowing test and she is back to regular diet as recommended by speech therapy and recommended to continue seeing her outpatient GI. Pulmonary was consulted. Patient was able to come off oxygen and oxygenating well on room air. She had been
afebrile and white blood cell count back down to normal. She was relatively hypotensive at some point but currently normotensive and back to her home cardiac regimen. Normal cell count was as high as close to 15,000 and went back down to normal to
6000. Her antibiotics were switched to oral. She also had a one bottle from cultures positive for coagulase-negative staph that was felt to be contaminant and we had repeated blood cultures that had no growth. She otherwise has improved
substantially feels back to her baseline. PT and OT saw her throughout this hospital stay. Patient is very eager to go home today. She will be discharged in relatively stable condition today.
Discharge duration: 35 minutes
Discharge Plan
-
Patient Disposition: Home (Routine Discharge)
Discharge Diagnosis/Procedures: Sepsis due to aspiration pneumonia. Hypotension. Contaminant blood culture. Permanent atrial fibrillation. Acute on chronic diastolic congestive heart failure.
Condition: Good
Diet: Low Cholesterol, Low Sodium and Restrict fluids to 48 oz
Activity: As tolerated
Blood Work: Please PCP to order CBC, BMP within 1 week
Specialty Instructions: Weigh Daily- Call MD for wt gain/loss 3 lbs overnight/5 lbs in 1 week
Referrals:
Primary care, provider [Other] (See less than 1 week)
Boy Berumen MD [Active] - in one to two weeks (Dr. Maldonado or POWER PLANT INSTALLER)
Prescriptions:
New
cefdinir 300 mg Capsule
300 mg PO Q12 5 Days Qty: 10 0RF
Cepacol Sore Throat (indigo-men) 15-2.6 mg lozenge
1 tia mucous membrane Q2H PRN (Reason: sore throat or mouth sore) Qty: 16 0RF
Continued
multivitamin Tablet
1 tab PO DAILY
losartan 50 mg Tablet
25 mg PO DAILY
furosemide 40 mg Tablet
40 mg PO DAILY
carvedilol 25 mg Tablet
25 mg PO BID
Eliquis 5 mg Tablet
5 mg PO BID
atorvastatin 40 mg tablet
40 mg PO QPM
clopidogrel 75 mg tablet
75 mg PO DAILY Qty: 90 3RF
pantoprazole 40 mg tablet,delayed release (DR/EC)
40 mg PO DAILY Qty: 90 3RF
prednisone 10 mg Tablet
10 mg PO DIRECTED
famotidine [Pepcid] 20 mg Tablet
20 mg PO BIDPRN PRN (Reason: gerd)
albuterol sulfate 90 mcg/actuation Hfa Aerosol Inhaler
2 puff INHALATION R Q6HPRN PRN (Reason: sob)
Discharge Orders:
Discharge Patient (As Directed); Ordered 08/10/24
Ordered By: Elliot Nogueira
Discharge Date and Time
Discharge Date/Time: 08/10/24 14:49
Print Language: SWEDISH
--- NOTE | 2024-08-10 14:43 | PTCARENOTE ---
Reviewed discharge instructions with patient and daughter. Both verbalize understanding of teaching and deny questions at this time. IV removed. Patient left via wheelchair with staff. Daughter here to transport patient home.
[2024-08-10 14:44] VITALS: BP 130/62
== END 2024-08-10 14:49 | disposition home or self-care (01) | DRG 871 ==
LOC: 4 EAST ACU 21:38
PROVIDERS: Clinical Nurse Specialist Family Health; Emergency Medicine; Student in an Organized Health Care Education/Training Program; ADMITTING PHYSICIAN Hospitalist; ATTENDING PHYSICIAN Hospitalist; CONSULT PHYSICIAN Internal Medicine Critical Care Medicine; EMERGENCY PHYSICIAN Student in an Organized Health Care Education/Training Program
DX: A41.9 Sepsis, unspecified organism (principal); I50.33 Acute on chronic diastolic (congestive) heart failure; J69.0 Pneumonitis due to inhalation of food and vomit; J18.9 Pneumonia, unspecified organism; I48.21 Permanent atrial fibrillation; M34.1 CR(E)ST syndrome; H26.9 Unspecified cataract; I11.0 Hypertensive heart disease with heart failure; I25.10 Atherosclerotic heart disease of native coronary artery without angina pectoris; K21.9 Gastro-esophageal reflux disease without esophagitis; E87.6 Hypokalemia; D50.9 Iron deficiency anemia, unspecified; R09.02 Hypoxemia; D64.9 Anemia, unspecified; I73.00 Raynaud's syndrome without gangrene; E78.5 Hyperlipidemia, unspecified; I95.9 Hypotension, unspecified; Z96.651 Presence of right artificial knee joint; Z95.5 Presence of coronary angioplasty implant and graft; Z79.01 Long term (current) use of anticoagulants; Z88.2 Allergy status to sulfonamides; Z82.49 Family history of ischemic heart disease and other diseases of the circulatory system; Z79.02 Long term (current) use of antithrombotics/antiplatelets; Z83.3 Family history of diabetes mellitus; Z11.52 Encounter for screening for COVID-19
CPT/HCPCS: 71046; 74230; 80048; 80053; 82607; 82728; 82746; 83540; 83605; 83880; 85025; 87040; 87147; 87205; 87811; 92610; 92611; 93005; 96365; 97116; 97162; 97166; 97535; 99285

== ENCOUNTER 2024-08-21 10:20 | Emergency (ER) | payer OTHER, SELFPAY ==
[2024-08-21 10:23] VITALS: BP 105/60
--- NOTE | 2024-08-21 11:06 | ED.GENMED ---
History of Present Illness
<Joe De La Fuente PA-C - Last Filed: 08/21/24 15:05>
General
Chief Complaint: Abnormal Lab Value
Source: patient
Exam Limitations: none
Time Seen by Provider: 08/21/24 10:49
History of Present Illness
History of Present Illness:
74-year-old female presents in referral from her family doctor's office for acute kidney injury. She was discharged from this hospital about 10 days ago for community-acquired pneumonia. She just finished a course of cefdinir. Last several days
she had diarrhea and loose stool. She also has had a decreased appetite. Daughter notes a 10 pound weight loss. She has CHF and has been on Lasix. The Lasix and valsartan were held the last 2 days secondary to being dehydrated and low blood
pressure. She saw the family doctor today after outpatient labs were drawn and was sent here for evaluation because her creatinine and BUN were elevated. Patient denies chest pain. She does note left-sided abdominal pain. No fever or chills. No
other complaints
Past History
<Joe De La Fuente PA-C - Last Filed: 08/21/24 15:05>
Past History
ED Past Medical History: Other (CREST syndrome; chronic heart failure with preserved ejection fraction; permanent atrial fibrillation; hypertension; hyperlipidemia; gastroesophageal reflux disease; coronary artery disease)
ED Past Surgical History: Other (cardiac stent; right knee replacement; cataracts)
Phy Exam
<Joe De La Fuente PA-C - Last Filed: 08/21/24 15:05>
Physical Exam
Physical Exam:
General: Well-appearing female no acute respiratory distress
HEENT: Normocephalic atraumatic
Heart: Regular rate and rhythm
Lungs: Clear no wheeze
Abdomen is soft tender to the left side of the abdomen no guarding rebound normal bowel sounds extremities: No edema no cyanosis
Skin: Warm no rash
Course
<Joe De La Fuente PA-C - Last Filed: 08/21/24 15:05>
Orders/Labs/Results
Orders:
Orders
08/21/24 11:03
CR Chest - 2 Views Urgent
Comment:
Reason For Exam: weakness
08/21/24 11:04
CT Abd/pelvis W Iv Cont Urgent
Comment:
Reason For Exam: left abdominal pain, diarrhea, nausea
08/21/24 11:11
STOOL [C difficile Antigen & Toxins] Urgent
JACKIE Source: Feces/Stool
Specimen Description:
Stool Culture Urgent
JACKIE Source: Feces/Stool
Specimen Description:
08/21/24 11:33
Complete Blood Count/With Diff Urgent
Comprehensive Metabolic Panel Urgent
08/21/24 12:19
0.9% Sodium Chloride 500 ml [Nss] 500 ml IV BOLUS
08/21/24 13:10
Potassium Chloride Powder [Klor-Con] 20 meq PO NOW STA
08/21/24 13:12
Potassium Chloride [KCl] 40 meq .ROUTE .STK-MED ONE
08/21/24 13:14
Potassium Chloride [KCl] 40 meq PO NOW STA
08/21/24 13:19
Potassium Chloride [KCl] 20 meq PO NOW STA
08/21/24 14:16
Urinalysis Reflex To Culture Urgent
Date Specimen was Collected: 08/21/24
Time Specimen was Collected: 14:15
Abnormal Lab Results
08/21/24
11:33
RBC 3.10 L 10^6/uL
(4.20-5.40)
Hgb 9.5 L g/dL
(12.0-16.0)
Hct 28.7 L %
(37.0-47.0)
Abs Immat Gran (auto) 0.1 H 10^3/uL
(0-0.05)
Immature Gran % 1.9 H %
(0-0.5)
Lymphocytes % 18.9 L %
(20.5-51.1)
Potassium 3.2 L mmol/L
(3.5-5.1)
BUN 36 H mg/dl
(7-17)
Creatinine 1.6 H mg/dL
(0.6-1.0)
Glucose 106 H mg/dl
(70-99)
Total Protein 5.4 L g/dl
(6.3-8.2)
Albumin 3.0 L g/dl
(3.5-5.0)
08/21/24 11:33
08/21/24 11:33
Vital Signs
Initial and Last Documented VS:
Initial Vital Signs
Temp Pulse Resp BP Pulse Ox
97.7 F 80 18 105/60 89
08/21/24 10:23 08/21/24 10:23 08/21/24 10:23 08/21/24 10:23 08/21/24 10:23
Last Documented Vital Signs
Temp Pulse Resp BP Pulse Ox
97.7 F 90 16 113/66 97
08/21/24 10:23 08/21/24 14:00 08/21/24 14:00 08/21/24 14:00 08/21/24 14:00
<Ev Alejandro MD - Last Filed: 08/21/24 14:46>
Orders/Labs/Results
Orders:
Orders
08/21/24 11:03
CR Chest - 2 Views Urgent
Comment:
Reason For Exam: weakness
08/21/24 11:04
CT Abd/pelvis W Iv Cont Urgent
Comment:
Reason For Exam: left abdominal pain, diarrhea, nausea
08/21/24 11:11
STOOL [C difficile Antigen & Toxins] Urgent
JACKIE Source: Feces/Stool
Specimen Description:
Stool Culture Urgent
JACKIE Source: Feces/Stool
Specimen Description:
08/21/24 11:33
Complete Blood Count/With Diff Urgent
Comprehensive Metabolic Panel Urgent
08/21/24 12:19
0.9% Sodium Chloride 500 ml [Nss] 500 ml IV BOLUS
08/21/24 13:10
Potassium Chloride Powder [Klor-Con] 20 meq PO NOW STA
08/21/24 13:12
Potassium Chloride [KCl] 40 meq .ROUTE .STK-MED ONE
08/21/24 13:14
Potassium Chloride [KCl] 40 meq PO NOW STA
08/21/24 13:19
Potassium Chloride [KCl] 20 meq PO NOW STA
08/21/24 14:16
Urinalysis Reflex To Culture Urgent
Date Specimen was Collected: 08/21/24
Time Specimen was Collected: 14:15
Abnormal Lab Results
08/21/24
11:33
RBC 3.10 L 10^6/uL
(4.20-5.40)
Hgb 9.5 L g/dL
(12.0-16.0)
Hct 28.7 L %
(37.0-47.0)
Abs Immat Gran (auto) 0.1 H 10^3/uL
(0-0.05)
Immature Gran % 1.9 H %
(0-0.5)
Lymphocytes % 18.9 L %
(20.5-51.1)
Potassium 3.2 L mmol/L
(3.5-5.1)
BUN 36 H mg/dl
(7-17)
Creatinine 1.6 H mg/dL
(0.6-1.0)
Glucose 106 H mg/dl
(70-99)
Total Protein 5.4 L g/dl
(6.3-8.2)
Albumin 3.0 L g/dl
(3.5-5.0)
08/21/24 11:33
08/21/24 11:33
Vital Signs
Initial and Last Documented VS:
Initial Vital Signs
Temp Pulse Resp BP Pulse Ox
97.7 F 80 18 105/60 89
08/21/24 10:23 08/21/24 10:23 08/21/24 10:23 08/21/24 10:23 08/21/24 10:23
Last Documented Vital Signs
Temp Pulse Resp BP Pulse Ox
97.7 F 90 16 113/66 97
08/21/24 10:23 08/21/24 14:00 08/21/24 14:00 08/21/24 14:00 08/21/24 14:00
<Joe De La Fuente PA-C - Last Filed: 08/21/24 15:05>
MDM/Problems Addressed
Differential Diagnosis Includes:
Patient sent here from family doctor for evaluation of acute kidney injury. Suspected possible overdiuresis versus dehydration. Will check for kidney dysfunction and blood work and electrolyte abnormality. Patient is tender to the left side of
the abdomen with recent diarrhea. Consider colitis versus diverticulitis versus adverse effect from recent antibiotics/c-diff..
Will check stool cultures if able. Recheck blood work. Chest x-ray pending secondary to weakness and recent pneumonia with CT of abdomen and urinalysis.
<Joe De La Fuente PA-C - Last Filed: 08/21/24 15:05>
*Critical Care Note
Total Time (30-74mins, 75-104mins- exclusive of procedures): Not Applicable
<JOVANY Rosario Last Filed: 08/21/24 15:05>
Update Note
Update Note:
Creatinine today 1.6 which is improved from outpatient labs. Patient's potassium 3.2. This was replenished with p.o. potassium. Urinalysis without infection. Patient able to provide stool sample today. CT and chest x-ray show resolving
pneumonia at the left base. There is mild suggestive colitis in the ascending colon. Patient has not had diarrhea here. She was hydrated here. At this point no overwhelming indication for admission to hospital. Discussed with emergency room
attending who saw the patient as well. Wes texted the family doctor notified of these findings. Advise close follow-up for recheck of labs. Stable for discharge
ED Attending Note
<Joe De La Fuente PA-C - Last Filed: 08/21/24 15:05>
-
Portions of this chart may have been created with voice recognition software.� Occasional wrong word or��sound alike� substitutions may have occurred due to the inherent limitations of voice recognition software.
<Ev Alejandro MD - Last Filed: 08/21/24 14:46>
ED Attending Note
Patient seen and examined by attending physician: Yes
I performed the substantive portion of visit, reviewed & personally made and approve the management plan that is documented in note by myself or RENATA.: Yes
ED Attending Note:
74-year-old female recently discharged in the hospital for pneumonia, notes that upon discharge she had very loose stools for a few days, now resolved associated with generalized fatigue and poor appetite. She had a telehealth visit yesterday, had
labs drawn, and was referred to the emergency department today due to concern of her increasing creatinine. Patient has lost weight due to decreased appetite. Interestingly, she feels better yesterday and even more so today. She denies any
further diarrhea, and is actually eating a sandwich when I entered the room. She denies chest pain, shortness of breath, dizziness, back pain, abdominal pain, or other complaints. She did note abdominal discomfort earlier which is now fully
resolved. On exam, patient pleasant, eating, smiling, no acute distress. Abdomen soft, nontender distended. Suspect dehydration. Creatinine today improved compared to prior. Will need close follow-up and reassessment of her labs, patient and
daughter agreeable to recommendation for discharge with this close follow-up
Discharge Plan
Departure
Patient Disposition: Home (Routine Discharge)
Date of Disposition: 08/21/24
Time of Disposition: 15:03
Patient with high blood pressure during this ER visit?: No
Discharge Problem:
Acute dehydration
Instructions: Dehydration, Adult (DC)
Prescriptions:
No Action
multivitamin Tablet
1 tab PO DAILY
losartan 50 mg Tablet
25 mg PO DAILY
furosemide 40 mg Tablet
40 mg PO DAILY
carvedilol 25 mg Tablet
25 mg PO BID
Eliquis 5 mg Tablet
5 mg PO BID
atorvastatin 40 mg tablet
40 mg PO QPM
clopidogrel 75 mg tablet
75 mg PO DAILY Qty: 90 3RF
pantoprazole 40 mg tablet,delayed release (DR/EC)
40 mg PO DAILY Qty: 90 3RF
prednisone 10 mg Tablet
10 mg PO DIRECTED
famotidine [Pepcid] 20 mg Tablet
20 mg PO BIDPRN PRN (Reason: gerd)
albuterol sulfate 90 mcg/actuation Hfa Aerosol Inhaler
2 puff INHALATION R Q6HPRN PRN (Reason: sob)
cefdinir 300 mg Capsule
300 mg PO Q12 5 Days Qty: 10 0RF
Cepacol Sore Throat (indigo-men) 15-2.6 mg lozenge
1 tia mucous membrane Q2H PRN (Reason: sore throat or mouth sore) Qty: 16 0RF
Referrals:
Brianna Sharpe MD [Family Provider] -
Activity Restrictions/Additional Instructions:
Stay hydrated. Recheck with your family doctor for blood work. Return if worse otherwise
Interventions
Interventions:
*Risk Screen - Suicide Last Done: 08/21/24 11:30
*General Assessment Last Done: 08/21/24 11:30
*Neglect/Abuse Screening Last Done: 08/21/24 11:30
ED- Fall Risk Assessment Last Done: 08/21/24 11:30
*ED COVID-19 Vaccine History Last Done: 08/21/24 11:30
Discharge Date and Time
Print Language: AFGHAN
--- NOTE | 2024-08-21 11:13 | EDRN ---
Fahad Villa PA was in to see pt.
[2024-08-21 11:30] VITALS: BP 107/53; BMI 25.0
[2024-08-21 11:55] LABS: % Basophils 0.4 % (0-2); % Eosinophils 1.6 % (0-6); % Immature Granulocytes 1.9 % (0-0.5); % Lymphocytes 18.9 % (20.5-51.1); % Monocytes 9.2 % (1.7-9.3); Absolute Eosinophils 0.1 10^3/uL (0-0.7); Absolute Immature Granulocytes 0.1 10^3/uL (0-0.05); Absolute Lymphocytes 1.3 10^3/uL (1.2-3.4); Absolute Monocytes 0.6 10^3/uL (0.1-0.6); Absolute Neutrophils 4.7 10^3/uL (1.4-6.5); Hematocrit 28.7 % (37.0-47.0); Hemoglobin 9.5 g/dL (12.0-16.0); Mean Corp Hgb Conc. 33.1 g/dL (33.0-37.0); Mean Corpuscular Hgb 30.6 pg (27.0-31.0); Mean Corpuscular Volume 92.6 fL (81.0-99.0); Mean Platelet Volume 10.4 fL (7.4-10.4); Nucleated Red Blood Cells % 0 %; Platelet Count 233 10^3/uL (130-400); Red Cell Dist. Width 14.4 % (11.5-14.5); White Blood Cell Count 6.9 10^3/uL (4.8-10.8)
[2024-08-21 12:00] VITALS: BP 100/52
[2024-08-21 12:15] LABS: ALT (SGPT) 12 U/L (0-35); AST (SGOT) 14 U/L (14-36); Alkaline Phosphatase 71 U/L (38-126); Blood Urea Nitrogen 36 mg/dl (7-17); Calcium 8.8 mg/dl (8.4-10.2); Carbon Dioxide 26 mmol/L (22-30); Chloride 103 mmol/L (98-107); Estimated Creatinine Clearance 25 ml/min; Glucose 106 mg/dl (70-99); Potassium 3.2 mmol/L (3.5-5.1); Sodium 140 mmol/L (135-145); Total Bilirubin 0.6 mg/dl (0.2-1.3); Total Protein 5.4 g/dl (6.3-8.2); eGFR 33.42
[2024-08-21 13:00] VITALS: BP 116/51
[2024-08-21] MEDS: NSS 500 IV (13:09)
[2024-08-21] MEDS: KCL 20 MEQ PO (13:20)
[2024-08-21 14:00] VITALS: BP 113/66
[2024-08-21 14:23] LABS: Urine Albumin Negative (Neg - Trace); Urine Bilirubin Negative (Negative); Urine Character Clear (Clear); Urine Color Yellow; Urine Glucose Negative (Negative); Urine Ketone Negative (Negative); Urine Leukocyte Negative (Negative); Urine Nitrite Negative (Negative); Urine Occult Blood Negative (Negative); Urine Urobilinogen Negative (Neg - 1+)
--- NOTE | 2024-08-21 14:36 | EDRN ---
Dr. Alejandro in to see pt.
[2024-08-21 15:00] VITALS: BP 106/50
== END 2024-08-21 15:45 | disposition home or self-care (01) ==
LOC: EMR 10:20
PROVIDERS: Physician Assistant; EMERGENCY PHYSICIAN Emergency Medicine; FAMILY PHYSICIAN Hospitalist
DX: E86.0 Dehydration (principal); I48.21 Permanent atrial fibrillation; I11.0 Hypertensive heart disease with heart failure; I50.32 Chronic diastolic (congestive) heart failure; E78.5 Hyperlipidemia, unspecified; K21.9 Gastro-esophageal reflux disease without esophagitis; I25.10 Atherosclerotic heart disease of native coronary artery without angina pectoris; Z95.5 Presence of coronary angioplasty implant and graft; Z79.899 Other long term (current) drug therapy
CPT/HCPCS: 99284; 96360; 71046; 74177; 80053; 81003; 85025; Q9967

== ENCOUNTER 2024-09-12 09:56 | Outpatient (RCR) | payer OTHER, SELFPAY ==
[2024-08-30] MEDS: VENOFER 110 MG IV (10:41)
[2024-08-30 10:43] VITALS: BP 126/64
[2024-08-30 12:40] VITALS: BP 132/56
[2024-09-03] MEDS: VENOFER 110 MG IV (10:18)
[2024-09-03 10:19] VITALS: BP 125/60
[2024-09-03 11:25] VITALS: BP 96/52
[2024-09-06 10:00] VITALS: BP 91/68
[2024-09-06] MEDS: VENOFER 110 MG IV (10:06)
[2024-09-06 11:33] VITALS: BP 135/61
[2024-09-10 09:52] VITALS: BP 129/68
[2024-09-10] MEDS: VENOFER 110 MG IV (10:03)
[2024-09-10 11:31] VITALS: BP 136/64
[2024-09-12] MEDS: VENOFER 110 MG IV (10:36)
[2024-09-12 10:38] VITALS: BP 118/78
[2024-09-12 11:41] VITALS: BP 137/55
[2024-09-12 11:50] VITALS: BP 133/61
== END 2024-09-13 09:04 | disposition home or self-care (01) ==
LOC: OID 09:56
PROVIDERS: ATTENDING PHYSICIAN Hospitalist
DX: D64.9 Anemia, unspecified (principal); T45.4X5A Adverse effect of iron and its compounds, initial encounter (principal); Y93.89 Activity, other specified; M34.1 CR(E)ST syndrome; I27.20 Pulmonary hypertension, unspecified; Z87.01 Personal history of pneumonia (recurrent); Z86.2 Personal history of diseases of the blood and blood-forming organs and certain disorders involving the immune mechanism; Z79.01 Long term (current) use of anticoagulants
CPT/HCPCS: 96365; J1756

== ENCOUNTER → 2024-10-25 12:14 | Outpatient (REF) | payer OTHER, SELFPAY | LOC: HWRAD 12:14 | PROVIDERS: ATTENDING PHYSICIAN Nurse Practitioner Family; FAMILY PHYSICIAN Hospitalist | DX: Z87.01 Personal history of pneumonia (recurrent) (principal) | CPT/HCPCS: 71046 ==

== ENCOUNTER 2024-12-04 08:50 | Day surgery (SDC) | payer OTHER, SELFPAY ==
[2024-08-28 10:59] LABS: % Basophils 0.6 % (0-2); % Lymphocytes 27.2 % (20.5-51.1); % Monocytes 5.8 % (1.7-9.3); % Neutrophils 62.4 % (42.2-75.2); Absolute Basophils 0.1 10^3/uL (0-0.2); Absolute Eosinophils 0.1 10^3/uL (0-0.7); Absolute Immature Granulocytes 0.2 10^3/uL (0-0.05); Absolute Lymphocytes 2.2 10^3/uL (1.2-3.4); Absolute Monocytes 0.5 10^3/uL (0.1-0.6); Absolute Neutrophils 4.9 10^3/uL (1.4-6.5); Hematocrit 28.9 % (37.0-47.0); Hemoglobin 9.1 g/dL (12.0-16.0); Mean Corp Hgb Conc. 31.5 g/dL (33.0-37.0); Mean Corpuscular Hgb 28.8 pg (27.0-31.0); Mean Corpuscular Volume 91.5 fL (81.0-99.0); Mean Platelet Volume 10.7 fL (7.4-10.4); Nucleated Red Blood Cells % 0 %; Platelet Count 230 10^3/uL (130-400); Red Blood Cell Count 3.16 10^6/uL (4.20-5.40); Red Cell Dist. Width 15.3 % (11.5-14.5); White Blood Cell Count 7.9 10^3/uL (4.8-10.8)
[2024-08-28 11:02] LABS: ALT (SGPT) 13 U/L (0-35); AST (SGOT) 16 U/L (14-36); Albumin 3.2 g/dl (3.5-5.0); Alkaline Phosphatase 84 U/L (38-126); Blood Urea Nitrogen 25 mg/dl (7-17); Calcium 8.9 mg/dl (8.4-10.2); Carbon Dioxide 26 mmol/L (22-30); Chloride 105 mmol/L (98-107); Glucose 111 mg/dl (70-99); Magnesium 1.4 mg/dl (1.6-2.3); Potassium 3.6 mmol/L (3.5-5.1); Sodium 141 mmol/L (135-145); Total Bilirubin 0.6 mg/dl (0.2-1.3); Total Protein 5.5 g/dl (6.3-8.2)
[2024-08-28 11:07] LABS: INR 2.39; PT 26.4 Sec (11.4-14.6)
[2024-08-28 11:53] VITALS: BMI 25.6
[2024-08-28 15:25] LABS: NT-proBNP 1890 pg/ml
--- NOTE | 2024-11-19 10:05 | HPS.HSE ---
Family Physician
-
Family Physician: Brianna Sharpe MD
Chief Complaint
-
Persistent atrial fibrillation.
History of Present Illness
The patient is a 74-year-old female presenting today for persistent atrial fibrillation. The patient reports a history of fatigue, mild shortness of breath, palpitations, and decreased exercise capacity secondary to this diagnosis. She is
on current pharmacological therapy with Carvedilol. She does report compliance with Eliquis for oral anticoagulation due to a CHADS-VASc of 6. She notes that her current symptoms greatly interfere with her activities of daily living and overall
impact her quality of life. She is interested in pursuing pulmonary vein isolation for further arrhythmia management. She was initially scheduled to get this procedure done in mid-August 2024; however, it was postponed due to pneumonia and acute
congestive heart failure. Fortunately, her breathing has improved and her most recent chest x-ray shows no residual infection. She has been compliant with her Lasix in regards to her congestive heart failure. She denies any current complaints today
such as chest pain, shortness of breath at rest, nausea, vomiting, diarrhea, lightheadedness, dizziness, cough, sore throat, or fever.
Medical History
Past Medical History
Past Medical History: Reports Other
Additional Past Medical History:
1. Persistent atrial fibrillation, pharmacological therapy with Carvedilol and oral anticoagulation with Eliquis.
2. Hypertension.
3. Hyperlipidemia.
4. PVCs.
5. Coronary artery disease, status post PCI with drug-eluting stent to mid circumflex 01/2024.
6. Congestive heart failure, preserved ejection fraction.
7. Pulmonary hypertension.
8. Mild-moderate mitral regurgitation.
9. Mild tricuspid regurgitation.
10. Pneumonia with sepsis and hypoxemia 07/2024; resolved on chest x-ray 09/2024.
11. Chronic kidney disease stage 3.
12. Gastroesophageal reflux disease.
13. Splenic arterial aneurysm.
14. Adrenal mass, presumed adenoma.
15. Degenerative disc disease.
16. Compression fracture of T8 vertebrae likely secondary to osteoporosis, awaiting treatment.
17. Osteoarthritis, status post right total knee arthroplasty 2020.
18. CREST syndrome.
19. Multifactorial anemia with iron deficiency component.
20. COVID-19 infection, early September 2024, without residual side effects.
Past Surgical History: Reports Other
Additional Past Surgical History:
1. PCI with drug-eluting stent to mid circumflex.
2. Left and right cardiac catheterization.
3. Right total knee arthroplasty.
4. Bilateral cataract extraction.
5. Colonoscopy.
6. Endoscopy.
Social History
Tobacco: Non-smoker
Alcohol: Other (Rare use reported. )
Living: Other (She lives with her daughter and son-in-law in a split level home. )
Family History
Family History: Not pertinent
Allergies / Home Medications
Allergy/Medication List:
Home medications:
1. Atorvastatin 40 mg p.o. every evening.
2. Carvedilol 25 mg p.o. twice a day.
3. Citracal 1 tablet p.o. daily.
4. Plavix 75 mg p.o. daily.
5. Eliquis 5 mg p.o. twice a day.
6. Famotidine 20 mg p.o. twice a day as needed.
7. Furosemide 40 mg p.o. daily.
8. Multivitamin 1 tablet p.o. daily.
9. Pantoprazole 40 mg p.o. daily.
10. Ferrous sulfate 325 mg p.o. daily.
Allergies: Sulfa.
Review of Systems
-
A 12 point ROS was completed and negative except as noted: Yes
Physical Exam
Vital Signs
Blood pressure 129/56. Heart rate 88. Respirations 18. Pulse ox 99% on room air.
Height 5 feet, 2 inches. Weight 62.4 kg. BMI 25.2.
Physical Exam
General: Well Developed, Well Nourished and No Apparent Distress
HEENT: NormoCephalic, Moist mucous membranes, Atraumatic and PERRLA
Respiratory: Clear
Cardiac: Irregular Rhythm
GI: Soft, Non Tender and Non Distended
Musculoskeletal: No Edema and Normal Gait & Station
Skin: Warm and Dry
Neuro: AO x 3 and Nonfocal/grossly intact
Laboratory Results
-
DIAGNOSTIC STUDIES as of 11/19/2024: White blood cell count 5.0. Hemoglobin 11.4. Platelet count 155,000. PT 22.0. INR 1.91. Sodium 139. Potassium 4.1. BUN 38. Creatinine 1.2. Glucose 117. Calcium 9.6. AST 21. ALT 14. Albumin 3.9. Type and screen A
positive.
EKG 11/19/2024: Atrial fibrillation with PVCs. Left axis deviation. Septal infarct, cited on or before December.
Chest x-ray 10/25/2024: Progressed mild mid thoracic spine compression fracture, likely of T8. Mild left lower lobe atelectasis versus scarring.
Echocardiogram 05/13/2024: Normal left ventricular size, wall thickness, and systolic function. Left ventricular ejection fraction estimated by Limon's biplane method 55-60%. Normal right ventricular systolic function. Biatrial dilatation with
severely dilated left atrium. Mild-moderate central mitral regurgitation. Aortic sclerosis without stenosis. No aortic regurgitation is seen. Mild tricuspid regurgitation. Estimated pulmonary artery pressure of 30-33 mmHg, assuming a right atrial
pressure of 3 mmHg. No pericardial effusion.
Impression/Plan
-
IMPRESSION/PLAN:
1. Persistent atrial fibrillation: The patient is in need of pulmonary vein isolation with Dr. Joseph Reilly on 12/04/2024. The benefits and risks of the procedure have been explained to the patient. The patient understands these risks and wishes to
proceed. She will not be required to undergo a pre-procedural transesophageal echocardiogram as she has been compliant with her home oral anticoagulation. She is aware to continue her Eliquis uninterrupted prior to her procedure. She will take no
medications the morning of her ablation.
[2024-11-19 10:33] VITALS: BMI 25.2
[2024-12-04 09:01] VITALS: BP 154/68
[2024-12-04 09:41] VITALS: BMI 25.3
[2024-12-04 13:39] LABS: ACT-LR - POC 331 Seconds (116-155)
[2024-12-04 14:06] LABS: ACT-LR - POC 351 Seconds (116-155)
[2024-12-04 14:57] LABS: ACT-LR - POC 166 Seconds (116-155)
[2024-12-04 15:23] VITALS: BP 102/44
[2024-12-04 15:30] VITALS: BP 104/54
[2024-12-04 15:36] LABS: ACT-LR - POC > 397 Seconds (116-155)
--- NOTE | 2024-12-04 15:44 | ITS.CL.ABL ---
Laborer Heading - Ablation
Ablation
Procedure Report:
Primary Beveler: Geovanna Browne DO
Procedure Date: 12/04/2024
Patient History:
Patient is a very pleasant 74-year-old female with a past medical history significant for heart failure with preserved ejection fraction, CAD status post PCI, pulmonary hypertension, hypertension, history of anemia, crest syndrome which is chronic,
GERD, persistent atrial fibrillation referred by her primary postie due to symptomatic persistent atrial fibrillation.
See H&P for complete details.
Indication:
Symptomatic persistent atrial fibrillation
Heart failure
Arrhythmia Specific History:
Prior Medical Therapies for Rate and Rhythm Control:
X Beta-mauricio
[ ] Calcium channel-mauricio
[ ] Amiodarone
[ ] Dronederone
[ ] Sotalol
[ ] Flecainide
[ ] Dofetilide
[ ] Options limited by bradycardia
[ ] Options limited by comorbid renal disease
Prior Procedural Therapies for AF/AFL:
[ ] Cardioversion
[ ] Pulmonary Vein Isolation
[ ] Posterior Wall Isolation
[ ] Additional lines (Specify)
[ ] Surgical Hair-MAZE or PVI (Specify)
Procedure Performed:
X AF ablation procedure (96203) -- includes LA/CS pacing, trans-septal, 3D mapping, + ICE
[ ] +IV drug (28465)
[ ] +Other Arrhythmia (47213)
X +Other AF Line/ablation (66847) - posterior wall isolation (floor, roof, wall)
Risks and expected recovery has been explained in detail. Alternative options have been explored, and in a shared-decision making fashion we have decided that this was the most appropriate procedure.
Method
NPO status confirmed. Grounding pad applied. Defibrillator pads applied. Continuous surface ECG, pulse oximetry, and blood pressure were monitored. Procedure was performed under general anesthesia, with anesthesia services.
Both groins were clipped, prepped with Chloraprep, and draped in sterile fashion. Time out was called. Local anesthesia administered with bupivacaine. The right femoral vein was accessed for catheter placement, using ultrasound guidance (saved to
record), micro-puncture needle/wire, and modified seldinger technique. 3 sheaths were placed. The following catheters were used:
[ ] Tacticath SE (D/F Curve) ablation catheter
X Viewflex 9Fr ICE catheter
X Inquiry decapolar 6Fr diagnostic catheter
[ ] CRD Hex 6Fr
[ ] Arctic Front Advance Cryoballoon ([ ]28mm[ ]23mm)
[ ] Achieve Advance mapping catheter ([ ]15mm[ ]20mm)
X FlexCath Contour 10 Fr with PulseSelect PFA Catheter
X Advisor HD Grid Mapping Catheter, SE
[ ] Acuson AcuNav 8 Fr ICE catheter
[ ]Other: [ ]
Intracardiac ultrasound (ICE) was carefully advanced into the right atrium to guide sheath placement over a J-wire, catheter placement, guide trans-septal puncture, identify potential complications, identify anatomic structures and ensure proper
contact between ablation catheter and tissue. A trace/small pericardial effusion was noted at the initiation of case. Case discussed with Dr. Vicente via [facility] message through staff who reported JEFFREY had demonstrated a trace/small
pericardial effusion. This remained unchanged throughout and at case completion.
Heparin was given prior to trans-septal puncture. Heparin was given to achieve and maintain a target ACT of 300-400 seconds throughout the procedure.
Trans-septal access was performed under ICE guidance. The trans-septal puncture was performed with a SafeSept wire through a Brockenbrough needle assembly through the steerable sheath. The wire was visualized as it entered the LSPV and system
advanced under ICE guidance and fluoroscopy into the LA. The Brockenbrough needle assembly, SafeSept wire and sheath dilator were removed under negative pressure. LA pressure was measured and recorded (16).
ICE and 3D mapping was performed to identify relevant cardiac structures. A careful 3D map was created to assess for regions of low-voltage and abnormal electrogram signals using HD grid mapping catheter and PulseSelect catheter. Additional mapping
was performed as outlined below.
Prior to ablation, glycopyrrolate was provided. PulseSelect catheter was advanced over J-wire to the ostium of each vein. Pulmonary vein isolation was performed with ostial and antral lesions in a circumferential manner. Contact was visualized via
EAM, ICE, fluoroscopy, and EGM signals. Posterior wall isolation was performed by anchoring the J-wire within the pulmonary vein and placing the PulseSelect catheter in contact with the posterior wall as visualized by aforementioned methods.
Following completion of ablation lesions, sinus rhythm was restored with a 200J synchronized DCCV and a post-ablation voltage/activation map was performed in sinus rhythm. Entrance and exit block were confirmed for each vein and the posterior wall.
Catheter and sheath were removed from the left atrium and post-ablation intracardiac echo evaluation was consistent with pre-ablation with no changes and no change to pericardial effusion and there is no left atrial thrombus or left ventricle
thrombus seen. Electrophysiology study was performed. Hemostasis was obtained with Vascade for each sheath and with manual pressure. Protamine was used for reversal.
Estimated Blood Loss
5 mL
Complications
None
Fluoroscopy: 3.9 minutes; 7.86 mGy; DAP 2.35
Baseline Intervals:
Rhythm: AF
QRS: 76 ms
QT: 372 ms
QTc: 430 ms
Post-Procedure Intervals:
MN: 200 ms
QRS: 70 ms
QT: 378 ms
QTc: 443 ms
A-A: 735 ms
R-R: 735 ms
AVWB: 390 ms
AVNERP: 600/310 ms
Recommendations
- Bedrest with straight-leg precautions as ordered
- Anticipate same day discharge if patient meeting clinical metrics
- Resume home medications as indicated
- Ok to resume anticoagulation tonight if patient and groin sites stable
- PPI daily for 30 days
- Plan for follow-up in office as scheduled
Joseph Reilly DO
Clinical Cardiac Manager Code
cc: Geovanna Browne DO; Brianna Sharpe MD
[2024-12-04 15:45] VITALS: BP 105/50
[2024-12-04 16:00] VITALS: BP 104/54
[2024-12-04 16:15] VITALS: BP 113/54
--- NOTE | 2024-12-04 16:41 | W.PN.UPDATE ---
Update Note
Progress Note Update
74 yo WF s/p PVI (same day). She denies cp, sob, maya clears, R fem site c/d/i VASCADE closure, EKG SR with PAC's. She will resume Eliquis tonight at 9pm. She will continue PPI for 30 days. Activity restrictions reviewed. She will f/u Dr. Browne
in 1 mo. She is for d/c home after 7pm if groin stable.
== END 2024-12-04 18:17 | disposition home or self-care (01) ==
LOC: CATH 08:50
PROVIDERS: ATTENDING PHYSICIAN Internal Medicine Cardiovascular Disease; FAMILY PHYSICIAN Hospitalist; OTHER PHYSICIAN Internal Medicine Cardiovascular Disease
DX: I48.19 Other persistent atrial fibrillation (principal); I13.0 Hypertensive heart and chronic kidney disease with heart failure and stage 1 through stage 4 chronic kidney disease, or unspecified chronic kidney disease; I50.32 Chronic diastolic (congestive) heart failure; E78.5 Hyperlipidemia, unspecified; I27.20 Pulmonary hypertension, unspecified; K21.9 Gastro-esophageal reflux disease without esophagitis; I25.10 Atherosclerotic heart disease of native coronary artery without angina pectoris; Z95.5 Presence of coronary angioplasty implant and graft; N18.30 Chronic kidney disease, stage 3 unspecified; Z87.01 Personal history of pneumonia (recurrent); Q27.30 Arteriovenous malformation, site unspecified; M19.90 Unspecified osteoarthritis, unspecified site; M34.1 CR(E)ST syndrome; D50.9 Iron deficiency anemia, unspecified; Z96.651 Presence of right artificial knee joint; Z79.02 Long term (current) use of antithrombotics/antiplatelets; Z79.01 Long term (current) use of anticoagulants; Z79.899 Other long term (current) drug therapy; I08.1 Rheumatic disorders of both mitral and tricuspid valves; Z86.16 Personal history of COVID-19
CPT/HCPCS: C1759; C1766; C1769; C1894; 36415; 75572; 76937; 80053; 83735; 83880; 85025; 85347; 85610; 86850; 86900; 86901; 93005; 93312; 93320; 93325; 93656; 93657; C1732; C1733; C1760; Q9967

== ENCOUNTER → 2025-03-17 13:53 | Outpatient (REF) | payer OTHER, SELFPAY ==
[2024-11-19 11:07] LABS: % Basophils 0.6 % (0-2); % Eosinophils 5.5 % (0-6); % Immature Granulocytes 0.4 % (0-0.5); % Lymphocytes 28.7 % (20.5-51.1); % Monocytes 6.3 % (1.7-9.3); % Neutrophils 58.5 % (42.2-75.2); Absolute Eosinophils 0.3 10^3/uL (0-0.7); Absolute Lymphocytes 1.4 10^3/uL (1.2-3.4); Absolute Monocytes 0.3 10^3/uL (0.1-0.6); Absolute Neutrophils 2.9 10^3/uL (1.4-6.5); Hematocrit 35.1 % (37.0-47.0); Hemoglobin 11.4 g/dL (12.0-16.0); Mean Corp Hgb Conc. 32.5 g/dL (33.0-37.0); Mean Corpuscular Hgb 32.6 pg (27.0-31.0); Mean Corpuscular Volume 100.3 fL (81.0-99.0); Mean Platelet Volume 11.2 fL (7.4-10.4); Nucleated Red Blood Cells % 0 %; Platelet Count 155 10^3/uL (130-400); Red Cell Dist. Width 13.9 % (11.5-14.5)
[2024-11-19 11:17] LABS: INR 1.91
[2024-11-19 11:39] LABS: ALT (SGPT) 14 U/L (0-35); AST (SGOT) 21 U/L (14-36); Albumin 3.9 g/dl (3.5-5.0); Alkaline Phosphatase 93 U/L (38-126); Blood Urea Nitrogen 38 mg/dl (7-17); Calcium 9.6 mg/dl (8.4-10.2); Carbon Dioxide 32 mmol/L (22-30); Chloride 99 mmol/L (98-107); Glucose 117 mg/dl (70-99); Magnesium 2.2 mg/dl (1.6-2.3); Potassium 4.1 mmol/L (3.5-5.1); Sodium 139 mmol/L (135-145); Total Bilirubin 0.5 mg/dl (0.2-1.3); Total Protein 6.3 g/dl (6.3-8.2); eGFR 47.21
== END ==
LOC: REG 13:53
PROVIDERS: ATTENDING PHYSICIAN Internal Medicine Cardiovascular Disease; FAMILY PHYSICIAN Hospitalist; OTHER PHYSICIAN Internal Medicine Cardiovascular Disease
DX: I48.91 Unspecified atrial fibrillation (principal)
CPT/HCPCS: 36415; 80053; 83735; 85025; 85610; 86850; 86900; 86901; 93005

== ENCOUNTER → 2025-04-11 14:01 | Outpatient (REF) | payer OTHER, SELFPAY | LOC: HWWDC 14:01 | PROVIDERS: ATTENDING PHYSICIAN Hospitalist | DX: Z12.31 Encounter for screening mammogram for malignant neoplasm of breast (principal); S22.060A Wedge compression fracture of T7-T8 vertebra, initial encounter for closed fracture; M81.0 Age-related osteoporosis without current pathological fracture | CPT/HCPCS: 77063; 77067; 77080 ==

== ENCOUNTER 2025-06-11 05:56 | Inpatient (IN) | payer OTHER, SELFPAY ==
[2025-05-29 10:34] VITALS: BMI 26.4
[2025-05-29 11:03] LABS: Hematocrit 35.5 % (37.0-47.0); Hemoglobin 11.5 g/dL (12.0-16.0); Mean Corp Hgb Conc. 32.4 g/dL (33.0-37.0); Mean Corpuscular Volume 93.7 fL (81.0-99.0); Nucleated Red Blood Cells % 0 %; Platelet Count 187 10^3/uL (130-400); Red Cell Dist. Width 15.7 % (11.5-14.5)
[2025-05-29 11:10] LABS: INR 1.42; PT 17.6 Sec (11.4-14.6)
[2025-05-29 12:04] LABS: ALT (SGPT) 14 U/L (0-35); AST (SGOT) 21 U/L (14-36); Albumin 4.0 g/dl (3.5-5.0); Alkaline Phosphatase 83 U/L (38-126); Blood Urea Nitrogen 30 mg/dl (7-17); Calcium 9.8 mg/dl (8.4-10.2); Carbon Dioxide 33 mmol/L (22-30); Chloride 102 mmol/L (98-107); Estimated Creatinine Clearance 39 ml/min; Glucose 100 mg/dl (70-99); Magnesium 1.9 mg/dl (1.6-2.3); Potassium 4.2 mmol/L (3.5-5.1); Sodium 140 mmol/L (135-145); Total Protein 6.6 g/dl (6.3-8.2); eGFR 52.08
--- NOTE | 2025-06-09 12:45 | W.PN.UPDATE ---
Update Note
Progress Note Update
Dental clearance obtained and scanned-Dr. Vadim Marcano-free of infection.
[2025-06-11] VITALS (17 sets, daily range): BP systolic 106–145; BP diastolic 39–90
[2025-06-11 09:00] LABS: ACT-LR - POC 324 Seconds (116-155)
[2025-06-11 09:20] LABS: ACT-LR - POC 384 Seconds (116-155)
[2025-06-11 10:43] LABS: ACT-LR - POC > 397 Seconds (116-155)
--- NOTE | 2025-06-11 10:56 | ITS.CL.ABL ---
Licensed Clinical Social Worker - Ablation
Ablation
Procedure Report:
ELECTROPHYSIOLOGIC STUDY AND POSSIBLE ABLATION
DATE: June 11, 2025
Primary Care Provider:
Brianna Sharpe MD
Primary Lining Feller Blindstitch:
Geovanna Browne DO
Shai Giron MD
INDICATION:
Symptomatic Atrial Fibrillation.
Paroxysmal
HISTORY: See H and P.
Symptomatic AF, poorly controlled with attempted medical therapy.
She has had symptomatic atrial fibrillation and underwent PVI in November 2024.
She has had some recurrence of palpitations associated with short duration PAF and PAT.
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 She is also at elevated [id number] risk. She has been referred for repeat mapping of the
left atrium and pulmonary veins for reassessment of PVI from November 2024 given her recurrent atrial arrhythmias, and also referred for Watchman implantation to reduce her long-term exposure to oral anticoagulation.
HAS-BLED: 4
Age
Abnormal Renal Function
H/O Bleeding
Antiplatelet Therapy
CHADSVASc: 5
HFpEF
Age
Vascular Dz: CAD
F Gender
PRESENTING RHYTHM: SR with runs of PAT
HISTORY: See H and P.
Symptomatic AF, poorly controlled with attempted medical therapy.
ANTICOAGULATION: Eliquis 5 mg twice daily
'TIME-OUT': called and confirmed.
SEDATION/ANESTHESIA: provided via the anesthesia department using general anesthesia.
PROCEDURE:
Ultrasound Guidance with real-time visualization of needle insertion and vessel patency performed by wy for femoral venous Vascular Access.
Under real-time US guidance, the needle was advanced with negative pressure into the vein. The needle was seen entering the vessel lumen with a good return of dark red flow, the syringe was removed, non-pulsatile, dark red blood low was noted and
the wire was passed without difficulty, then the needle was removed. US confirmed the wire was in the vein, not going into an artery,
Images were taken and saved for the patient's permanent record. Imaging findings typical femoral venous anatomy. Direct visualization of needle puncture into the femoral vein was observed and recorded.
A decapolar CS catheter was placed within the CS for mapping and pacing.
The intracardiac ultrasound catheter was positioned in the RA for continuous intracardiac ultrasound imaging.
Heparin bolus and infusion to target ACT at 300 -350 seconds was administered. Transseptal puncture was performed. This entailed advancing a sheath with dilator into the superior vena cava and withdrawing both (monitoring intracardiac ultrasound,
fluoroscopy and tip pressure) with the tip oriented toward the atrial septum. The fossa ovalis was engaged (indicated by sudden displacement of the sheath tip as well as tenting of the fossa seen on intracardiac ultrasound).
The [employer] transseptal system was used. Left atrial catheter position was confirmed by echocardiographic imaging and fluoroscopy followed by RF delivery using the [employer] system resulting in successful LA access with pressure monitoring
demonstrating LA pressure waveforms (LA mean pressure 9 mm Hg). The sheath was advanced over the dilator and positioned in the left atrium.
The Bella Grid multipolar mapping catheter was initially positioned through the transseptal sheath for high density mapping.
Geometry and voltage mapping was performed using the Bella multipolar grid catheter. Ensite-X was utilized for three-dimensional electroanatomical mapping.
A 3-D map was created using Ensite-X in Voxel mode. A 3-D reconstructed CT image was compared to the 3-D Navex map to assist in anatomic evaluation, mapping and ablation.
High density electroanatomical three-dimensional mapping demonstrated 4 PVs: LSPV, LIPV, RSPV, RIPV.
Ablation strategy included PVI as well as mapping for extra PV contributors to atrial fibrillation which would also be targeted if present.
There is exit block from all 4 pulmonary veins. However high density electroanatomical voltage mapping finds ingrowth of signal suggestive of lack of entrance block at the left inferior pulmonary vein towards the posterior quadrant and at the left
superior pulmonary vein towards its anterior quadrant. Mapping finds near complete posterior wall electrical isolation, however there is lack of full posterior wall isolation with voltage mapped towards the posterior quadrant of the right inferior
pulmonary vein antrum while the vein itself is isolated.
First the left inferior and left superior pulmonary vein were addressed with pulsed electric field energy to isolate the veins with both entrance and exit block being accomplished.
Next pulsed electric field energy was delivered to the low posterior wall of the left atrium towards the posterior quadrant of the right inferior pulmonary vein antrum to fully isolate the posterior wall of the left atrium.
These areas were ablated using pulsed electric field energy eliminating the extra PV contributors to atrial fibrillation.
Programmed electrical stimulation was then performed. With burst atrial pacing down to atrial ERP, there are no sustained arrhythmias. Very short duration irregular atrial tachycardia was the only arrhythmias induced.
With atrial decremental extrastimuli and irregular atrial tachycardia which rapidly degenerated to atrial fibrillation was induced with aggressive protocol. This rhythm was cardioverted to sinus.
Given the nonsustained nature of the atrial tachycardias full assessment was difficult but none of the tachycardias appeared to be either mitral or tricuspid flutter.
Given the lack of clearly mappable targets, no further ablation was performed.
I.C.E. :
Pre-Ablation Post-Ablation
LVEF: 55% 55%
WMA: None none
Pericardial effusion: None none
COMPLICATIONS:
None
SUMMARY:
- Mapping and ablation to isolate the PVs resulting in electrical isolation of the pulmonary veins
- Additional AF ablation sets X 1 after PVI (LA posterior wall) resulting in elimination of the targeted extra PV contributors to atrial fibrillation.
- 3-D Electroanatomical Mapping
- Intracardiac Ultrasound
- Ultrasound guidance for vascular access
Post ablation, I discussed today's findings and results with the patient's daughter, Malaika.
RECOMMENDATIONS:
- Proceed towards watchman implantation
- Observe in monitored bed.
- Maintain oral anticoagulation.
- Office visit with Imelda Kang NP on 09/12/2025.
- Continue cardiovascular care with Dr. Geovanna Browne
Copy to:
Brianna Sharpe MD
Geovanna Browne, DO
Shai Giron MD
--- NOTE | 2025-06-11 11:16 | WATCHMAN.MD ---
Watchman Implant
-
WATCHMAN LEFT ATRIAL APPENDAGE CLOSURE DEVICE REPORT
Date: 06/11/25
Primary Care Provider:
Brianna Sharpe MD
Primary Drosophere Operator:
Geovanna Browne DO
Shai Reilly MD
HISTORY: See H and P.
Symptomatic AF, poorly controlled with attempted medical therapy.
She has had symptomatic atrial fibrillation and underwent PVI in November 2024.
She has had some recurrence of palpitations associated with short duration PAF and PAT.
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 She is also at elevated [id number] risk. She has been referred for repeat mapping of the
left atrium and pulmonary veins for reassessment of PVI from November 2024 given her recurrent atrial arrhythmias, and also referred for Watchman implantation to reduce her long-term exposure to oral anticoagulation.
HAS-BLED: 4
Age
Abnormal Renal Function
H/O Bleeding
Antiplatelet Therapy
CHADSVASc: 5
HFpEF
Age
Vascular Dz: CAD
F Gender
Watchman Team:
JEFFREY: Chet Mirza M.D.
Implanter and trasseptal stereo operator: Dr Brad Dorsey M.D.
Procedure: Watchman left atrial appendage closure.
The patient was placed under general anesthesia by anesthesia.
A JEFFREY probe was placed.
Ultrasound Guidance with real-time visualization of needle insertion and vessel patency performed by co for femoral venous Vascular Access.
Under real-time US guidance, the needle was advanced with negative pressure into the vein. The needle was seen entering the vessel lumen with a good return of dark red flow, the syringe was removed, non-pulsatile, dark red blood low was noted and
the wire was passed without difficulty, then the needle was removed. US confirmed the wire was in the vein, not going into an artery,
Images were taken and saved for the patient's permanent record. Imaging findings typical femoral venous anatomy. Direct visualization of needle puncture into the femoral vein was observed and recorded.
Transvenous access from the EP study and ablation from earlier this morning was utilized for this procedure.
Heparin was maintained to goal ACT 350-400 seconds.
The Watchman delivery sheath was substituted for the Farawave catheter.
Pigtail catheter was advanced and contrast angiography was performed of the left atrial appendage.
The pigtail catheter was removed from the access sheath. A 31 mm Watchman device was flushed and then placed into the watchman access sheath and advanced through the sheath. The Watchman was clamped into the sheath. The device was deployed into
the left atrial appendage. This device was not well-seated with the initial attempt. Several attempts were made with recapturing and redeployment but the device appeared too large for this left atrial appendage. The 31 mm Watchman device was
removed and a 27 mm device was substituted. This was ultimately deployed with good result.
The PASS criteria were met. The stability tug test was performed and passed. Angiography and transesophageal echocardiogram revealed no leaks nor jets. The position was confirmed on angiography and transesophageal echo and there were no
significant shoulders. Compression ranges from 9.5 % to 10.5 %.
After meeting the PASS release criteria the device was released into the left atrial appendage.
The watchman access sheath was then removed through the transseptal into the IVC. A figure 8 suture closure was performed at the site of the femoral venous puncture and the sheath as it was removed.
Impression:
- Successful Deployment 27 mm WATCHMAN left atrial appendage closure device.
- Ultrasound guidance for vascular access
Recommended anticoagulation strategy for this specific patient is:
- Maintain apixaban 5 mg twice daily.
- Transesophageal echocardiogram at 3 months post procedure will be used to assess for any device related thrombus, assess for any leaks, and aid in the decision making regarding altering anticoagulation/antiplatelet recommendations.
- At post procedure JEFFREY leaks > 5mm are significant and require chronic full anticoagulation or consideration for leak closure.
Ivy-device leaks between 3 and 5 mm may also carry an increased risk. These patients will need individualized risk assessment and discussion with Watchman team.
Leaks < 3 mm are generally considered non-significant.
With leak of any size, suggestion is to check JEFFREY 12 mo out from implant.
- While the overall risk of device related infection for Watchman device is very low, we recommend SBE prophylaxis with amoxicillin for the first 6 months after device implantation until the device is more completely endothelialized. After the
first 6 months, the risk of infection associated with a device is further reduced and routine antibiotic prophylaxis is not mandatory but can be decided on an individual case basis.
Continue cardiovascular care with Dr. Browne, office visit is scheduled for 09/12/2025
Transesophageal echocardiogram is scheduled for 09/16/2025
cc:
Brianna Sharpe MD
Geovanna Browne DO
Shai Reilly MD
--- NOTE | 2025-06-11 15:45 | W.DS.TRANS ---
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
-
Discharge Instructions:
Discharge Diagnosis/Procedures AFib, s/p ablation and Watchman device implant
Diet Low Cholesterol,Low Sodium
Driving Restrictions No driving for 24 hours
Others Tests YOUR JEFFREY IS SCHEDULED FOR 09/16/2025. YOU WILL
RECEIVE A PHONE CALL WITH INSTRUCTIONS AND TIME
OF ARRIVAL
Instructions:
Stand-Alone Forms: DC Instructions- Cath/EP Lab
Changes to Home Medications: No
Discharge Medications:
DC Medications w/original date entered in [facility]
apixaban 5 mg tablet (Eliquis) 5 mg PO BID blood thinner 12/22/23
carvedilol 25 mg tablet 25 mg PO BID htn 12/22/23
furosemide 40 mg tablet 40 mg PO DAILY EDEMA 12/22/23
multivitamin 1 tab PO QPM Supplement 12/22/23
atorvastatin 40 mg tablet 40 mg PO QPM cholesterol 12/28/23
famotidine 20 mg tablet (Pepcid) 20 mg PO BIDPRN PRN GERD 08/06/24
pantoprazole 40 mg tablet,delayed release 40 mg PO QPM GERD 05/27/25
Home Medication Changes
Pending Results: No
== END 2025-06-11 16:05 | disposition home or self-care (01) | DRG 317 ==
LOC: CATH-IN 05:56
PROVIDERS: Internal Medicine Cardiovascular Disease; ADMITTING PHYSICIAN Internal Medicine Cardiovascular Disease; FAMILY PHYSICIAN Hospitalist; OTHER PHYSICIAN Internal Medicine Cardiovascular Disease
PROC: B24BZZ4 Ultrasonography of Heart with Aorta, Transesophageal (ICD-10-PCS; 2025-06-11)
PROC: 02583ZF Destruction of Conduction Mechanism using Irreversible Electroporation, Percutaneous Approach (ICD-10-PCS; 2025-06-11)
PROC: 4A0234Z Measurement of Cardiac Electrical Activity, Percutaneous Approach (ICD-10-PCS; 2025-06-11)
PROC: 02L73DK Occlusion of Left Atrial Appendage with Intraluminal Device, Percutaneous Approach (ICD-10-PCS; 2025-06-11)
PROC: 02K83ZZ Map Conduction Mechanism, Percutaneous Approach (ICD-10-PCS; 2025-06-11)
PROC: 4A023FZ Measurement of Cardiac Rhythm, Percutaneous Approach (ICD-10-PCS; 2025-06-11)
DX: I48.19 Other persistent atrial fibrillation (principal); I13.0 Hypertensive heart and chronic kidney disease with heart failure and stage 1 through stage 4 chronic kidney disease, or unspecified chronic kidney disease; I50.32 Chronic diastolic (congestive) heart failure; M34.1 CR(E)ST syndrome; D63.1 Anemia in chronic kidney disease; I25.10 Atherosclerotic heart disease of native coronary artery without angina pectoris; E78.5 Hyperlipidemia, unspecified; I27.20 Pulmonary hypertension, unspecified; K21.9 Gastro-esophageal reflux disease without esophagitis; N18.30 Chronic kidney disease, stage 3 unspecified; E27.9 Disorder of adrenal gland, unspecified; D50.9 Iron deficiency anemia, unspecified; M19.90 Unspecified osteoarthritis, unspecified site; I72.8 Aneurysm of other specified arteries; Z79.01 Long term (current) use of anticoagulants; Z79.899 Other long term (current) drug therapy; Z87.01 Personal history of pneumonia (recurrent); Z95.5 Presence of coronary angioplasty implant and graft
CPT/HCPCS: 33340; 36415; 80053; 83735; 85025; 85347; 85610; 86850; 86900; 86901; 87070; 93005; 93355; 93656; 93657; C1730; C1732; C1733; C1766; C1769; C1892; C1894; Q9967

== ENCOUNTER 2025-06-16 12:23 | Emergency (ER) | payer OTHER, SELFPAY ==
[2025-06-16 12:35] VITALS: BP 155/69
[2025-06-16 15:30] VITALS: BP 121/64
--- NOTE | 2025-06-16 18:09 | ED.GENMED ---
History of Present Illness
General
Chief Complaint: Fall
Source: patient and family
Exam Limitations: none
Time Seen by Provider: 06/16/25 17:38
Nursing documentation reviewed up to this point in time: agreed with
History of Present Illness
History of Present Illness:
Patient with history of atrial fibrillation on Eliquis, presents to ED after tripping over the curb and falling onto her left side, hitting her face, knee, and ankle. Denies loss of consciousness. Denies headache. Denies neck pain. Denies loss
of sensation or weakness. Denies chest pain. Denies abdominal pain. Denies back pain. Despite pain, patient has been able to ambulate independently.
Past History
Past History
ED Past Medical History: Other (CREST syndrome; chronic heart failure with preserved ejection fraction; permanent atrial fibrillation; hypertension; hyperlipidemia; gastroesophageal reflux disease; coronary artery disease)
ED Past Surgical History: Other (cardiac stent; right knee replacement; cataracts)
Review of Systems
Review of Systems
Allergies reviewed?: Yes
All Other Systems: ROS reviewed and negative except as documented in HPI and ROS
Constitutional: Reports no symptoms
Respiratory: Reports no symptoms; Denies trouble breathing
Cardiac: Reports no symptoms; Denies chest pain
ABD/GI: Reports no symptoms; Denies nausea or vomiting
Musculoskeletal: Reports other (Knee, facial and ankle pain)
Skin: Reports other (Abrasion)
Neurological: Reports no symptoms; Denies dizzy, headache, weakness or numbness
Phy Exam
Physical Exam
Physical Exam:
Physical Exam
General: mild painful distress, not acutely ill. afebrile
Head: eomi. abrasion/ecchymosis noted over left cheek without deformity/crepitus
Neck: supple. normal range of motion
Heart: s1/s2 regular rate and rhythm
Lungs: no acute respiratory distress. clear bilaterally. chest wall nontender to palpation
Abdomen: normal bowel sounds. not tender.
Neuro: alert and oriented x 3. no focal neurological deficits. normal speech
Skin: no rash
Psychiatric: well kept. interactive and cooperative
Extremities: left knee/ankle - mildly tender to palpation without deformity/erythema. mild ecchymosis noted over lateral knee.
Course
Orders/Labs/Results
Orders:
Orders
06/16/25 12:38
CT Head W/o Iv Contrast Urgent
Comment:
Reason For Exam: fall, +headstrike on Eliquis
06/16/25 18:02
CR Ankle - Left Min 3 Views Urgent
Comment:
Reason For Exam: trauma
CR Knee - Left 4 Or More View* Urgent
Comment:
Reason For Exam: trauma
06/16/25 19:42
Acetaminophen [Tylenol] 650 mg PO NOW STA
Vital Signs
Initial and Last Documented VS:
Initial Vital Signs
Temp Pulse Resp BP Pulse Ox
97.8 F 71 18 155/69 99
06/16/25 12:35 06/16/25 12:35 06/16/25 12:35 06/16/25 12:35 06/16/25 12:35
Last Documented Vital Signs
Temp Pulse Resp BP Pulse Ox
97.6 F 79 20 148/64 100
06/16/25 19:47 06/16/25 19:47 06/16/25 19:47 06/16/25 19:47 06/16/25 19:50
MDM/Problems Addressed
MDM/Problems Addressed:
CT head: no acute findings.
X-ray: no acute fx.
Patient otherwise remains afebrile, hemodynamically stable, and neurologically intact, during observation. Patient with likely contusions from the fall. As such, patient will be discharged home in stable condition, to the care of her daughter,
with recommendation to follow-up with PCP for reevaluation. Steri-Strip will be applied to her left cheek, as there appears to be minor superficial skin tear. No indication for suture placement.
*Pulse Oximetry
SaO2: 93
Oxygen Mode of Delivery: Room air
Patient hypoxic: no
*Critical Care Note
Total Time (30-74mins, 75-104mins- exclusive of procedures): Not Applicable
ED Attending Note
-
Portions of this chart may have been created with voice recognition software.� Occasional wrong word or��sound alike� substitutions may have occurred due to the inherent limitations of voice recognition software.
Discharge Plan
Departure
Patient Disposition: Home (Routine Discharge)
Date of Disposition: 06/16/25
Time of Disposition: 20:15
Patient with high blood pressure during this ER visit?: Yes
Condition: Good
Discharge Problem:
Contusion, Skin tear
Instructions: Contusion (DC), Skin Abrasions (DC)
Prescriptions:
No Action
multivitamin Tablet
1 tab PO QPM
furosemide 40 mg Tablet
40 mg PO DAILY
carvedilol 25 mg Tablet
25 mg PO BID
Eliquis 5 mg Tablet
5 mg PO BID
atorvastatin 40 mg tablet
40 mg PO QPM
famotidine [Pepcid] 20 mg Tablet
20 mg PO BIDPRN PRN (Reason: GERD)
pantoprazole 40 mg tablet,delayed release (DR/EC)
40 mg PO QPM
Referrals:
Brianna Sharpe MD [Family Provider, Internal Medicine]
Activity Restrictions/Additional Instructions:
As discussed, please follow-up with your primary care physician and/or orthopedic surgeon for reevaluation.
Interventions
Interventions:
*Risk Screen - Suicide Last Done: 06/16/25 12:35
*General Assessment Last Done: 06/16/25 17:35
*Nursing Disposition Last Done: 06/16/25 20:31
ED-Musculoskeletal Assessment Last Done: 06/16/25 19:51
ED- Neurological Assessment Last Done: 06/16/25 17:35
ED-Skin Assessment Last Done: 06/16/25 19:53
Discharge Date and Time
Discharge Date/Time: 06/16/25 20:31
Print Language: BELARUSIAN
[2025-06-16] MEDS: TYLENOL 650 MG PO (19:46)
[2025-06-16 19:47] VITALS: BP 148/64
== END 2025-06-16 20:31 | disposition home or self-care (01) ==
LOC: EMR 12:23
PROVIDERS: EMERGENCY PHYSICIAN Emergency Medicine; FAMILY PHYSICIAN Hospitalist
DX: S80.02XA Contusion of left knee, initial encounter (principal); S01.412A Laceration without foreign body of left cheek and temporomandibular area, initial encounter; W19.XXXA Unspecified fall, initial encounter; M34.1 CR(E)ST syndrome; I48.21 Permanent atrial fibrillation; I11.0 Hypertensive heart disease with heart failure; I50.9 Heart failure, unspecified; E78.00 Pure hypercholesterolemia, unspecified; I25.10 Atherosclerotic heart disease of native coronary artery without angina pectoris; Z79.01 Long term (current) use of anticoagulants; Z95.5 Presence of coronary angioplasty implant and graft; Z96.651 Presence of right artificial knee joint; K21.9 Gastro-esophageal reflux disease without esophagitis
CPT/HCPCS: 99284; 70450; 73564; 73610

== ENCOUNTER 2025-09-16 07:23 | Day surgery (SDC) | payer OTHER, SELFPAY | END 2025-09-16 10:08 | disposition home or self-care (01) | LOC: CATH 07:23 | PROVIDERS: ATTENDING PHYSICIAN Internal Medicine Cardiovascular Disease; FAMILY PHYSICIAN Hospitalist; OTHER PHYSICIAN Internal Medicine Cardiovascular Disease | DX: I08.3 Combined rheumatic disorders of mitral, aortic and tricuspid valves (principal); I08.8 Other rheumatic multiple valve diseases; I70.0 Atherosclerosis of aorta; Q21.10 Atrial septal defect, unspecified; I50.32 Chronic diastolic (congestive) heart failure; I27.20 Pulmonary hypertension, unspecified; Z79.01 Long term (current) use of anticoagulants; M34.1 CR(E)ST syndrome; I48.91 Unspecified atrial fibrillation; Z79.899 Other long term (current) drug therapy; Z95.9 Presence of cardiac and vascular implant and graft, unspecified | CPT/HCPCS: 93312; 93320; 93325 ==

== ENCOUNTER 2025-10-27 08:18 | Inpatient (IN) | payer OTHER, SELFPAY ==
[2025-10-27 08:28] VITALS: BMI 26.8
[2025-10-27 08:32] VITALS: BP 134/58
--- NOTE | 2025-10-27 09:23 | W.PN.CARDCBS ---
Addendum entered and electronically signed by John Frazier MD 10/27/25 11:48:
75-year-old woman admitted for dofetilide loading following PVI 11/2024 and PVI/Watchman placement May 2025
PMH/PSH: Atrial fibrillation status post PVI Watchman May 2025, CAD status post PCI January 2024, luminal irregularities of LAD, 50% RCA, 60-70% mid circumflex, 3.5 x 23 Xience stent to circumflex, CREST syndrome hypertension, hypercholesterolemia,
GERD, right total knee arthroplasty, HFpEF, mild to moderate MR by echo April 2024
Outpatient meds: Atorvastatin 40 mg a day, carvedilol 25 mg twice daily,Pepcid, furosemide 40 mg a day, losartan 25 mg a day, pantoprazole
Rest of history as below, reviewed in detail and agree unless specified
Respiratory rate 20, afebrile sats 98%, 118/80, neck exam unremarkable, lungs are clear, regular rate and rhythm with soft murmur, possibly mildly increased P2, abdomen benign extremities without significant edema.
ECG: Sinus rhythm, first-degree AV block, PACs, left axis deviation, possible prior anterior HI, QTc is 465msec
Impression:
Recurrent paroxysmal atrial fibrillation following PVI
History of Watchman, now off Eliquis
CAD status post circumflex PVI 2023
Hypertension
Hyperlipidemia
History of GERD
History of HFpEF
Other diagnoses as below, reviewed in detail and agree unless otherwise specified.
Plan:
Plan as below, reviewed in detail and agree unless otherwise specified.
She looks well, is now being admitted for dofetilide loading. Baseline QTc is 465 mm.
Proceed with dofetilide loading, 250 mcg twice daily if creatinine stable-currently pending
Will review medications with primary lead mechanical engineer to determine if any med changes are recommended.
Original Note:
Today's Communication / Plan
-
Start dofetilide 250 mcg twice daily with QTc monitoring
Impression / Plan
-
PCP: Brianna Sharpe
Primary lead mechanical engineer: Geovanna Browne
*see 10/14/2025 cardiology office visit note for full history*
Impression:
Paroxysmal atrial fibrillation
PVI and Watchman 06/11/2025
PVI 12/04/2024
3-month post watchman JEFFREY 09/16/2025 well-seated Watchman Flex PERNELL occluder device with no evidence of flow around the device and no thrombus, Eliquis stopped.
Recurrent paroxysms of symptomatic atrial fibrillation post May 2025 ablation
CAD status post ESTEVAN mid circumflex 01/29/2024
Heart failure preserved EF
Iron deficiency anemia, hemoglobin as low as 8.1 requiring iron infusions
Suspected GI bleed but unable to identify clear source, followed by GI and hematology
Falls
Unstable gait
Hypertension
venous insufficiency
CREST
Previous cardiovascular testing:
Echo 05/13/2024: Normal LV RV size and function, LVEF 55 to 60%, mild to moderate MR, mild TR
JEFFREY 12/04/2024: Normal biventricular size and systolic function, no thrombus in LA, PERNELL, RA or RAA, moderate MR
JEFFREY 06/11/2025: LVEF 55 to 60%, moderate MR, status post watchman flex 27 mm device with no obvious SHERITA device leak
JEFFREY 09/16/2025: Normal LV/RV size and function, moderate MR, well-seated watchman flex PERNELL occluder device no evidence of flow around device, no thrombus
Plan:
-Presents for initiation of dofetilide for recurrent paroxysmal atrial fibrillation status post PVI 06/11/2025, 12/04/2024
- Currently in normal sinus rhythm, QTc on EKG 465 ms
- Based on labs today, 10/27/2025: Creat 1.0. creat clearance 48.3
-Start dofetilide 250 mcg twice daily
- Reviewed current medications, no contraindications with dofetilide, of note, patient had been on Z-Jhony for URI, last dose 10/22/2025
- Status post Watchman 06/11/2025 with 3 month post watchman JEFFREY on 09/16/2025 showing no obvious SHERITA device leak or thrombus, anticoagulation stopped 09/16/2025
- History of heart failure preserved EF on losartan, carvedilol, and furosemide. Consider initiation of spironolactone and SGLT2 inhibitor. Will discuss with primary lead mechanical engineer.
- Currently euvolemic on exam
- K3.7�replete with 40 mEq KCl now-I ordered
- Mag 1.9-replete with mag oxide 400 mg now�I ordered
Progress Note - Night Shift
Subjective
Date of Service: October 27, 2025
No chest pain, shortness of breath, palpitations.
Reports no A-fib in past 3 days
Objective
Vital Signs and I&O:
Vital Signs
Temp Resp Pulse Ox
98.3 F 20 98
10/27/25 08:32 10/27/25 08:32 10/27/25 08:32
Vital Signs
Temp Resp Pulse Ox
98.3 F 20 98
10/27/25 08:32 10/27/25 08:32 10/27/25 08:32
Physical Exam
Physical Exam
GEN: No distress, awake, Ox3
HEENT: supple, anicteric, mmm
LUNGS: CTA, no wheezes/rales
CV: Reg, S1/S2, no murmur
ABD: soft, BS+, NT/ND
EXT: No edema
NEURO: Gross non-focal
SKIN: No rash
[2025-10-27 09:26] LABS: Hematocrit 34.7 % (37.0-47.0); Hemoglobin 11.1 g/dL (12.0-16.0); Mean Corp Hgb Conc. 32.0 g/dL (33.0-37.0); Mean Corpuscular Volume 91.6 fL (81.0-99.0); Platelet Count 203 10^3/uL (130-400); Red Cell Dist. Width 14.3 % (11.5-14.5)
[2025-10-27 09:30] VITALS: BMI 26.8
[2025-10-27 09:43] LABS: ALT (SGPT) 12 U/L (0-35); AST (SGOT) 16 U/L (14-36); Albumin 3.5 g/dl (3.5-5.0); Alkaline Phosphatase 92 U/L (38-126); Blood Urea Nitrogen 25 mg/dl (7-17); Calcium 9.2 mg/dl (8.4-10.2); Carbon Dioxide 27 mmol/L (22-30); Chloride 105 mmol/L (98-107); Estimated Creatinine Clearance 41 ml/min; Glucose 109 mg/dl (70-99); Magnesium 1.9 mg/dl (1.6-2.3); Potassium 3.7 mmol/L (3.5-5.1); Sodium 139 mmol/L (135-145); Total Protein 6.3 g/dl (6.3-8.2); eGFR 58.39
--- NOTE | 2025-10-27 09:51 | W.CARD.TIKOS ---
Initiate Tikosyn
-
I verify that the patient has not taken any verapamil (Isoptin/Calan), ketoconazole (Nizoral), cimetidine (Tagamet), trimethoprim (Trimpex), trimethoprim/sulfamethoxazole (Bactrim), megesterol (Megace), prochlorperazine (Compazine),
hydrochlorothiazide (HCTZ), dolutegravir (Tivicay) or any Class I or Class III anti-arrhythmic within the last three days
AND
I verify that the patient has not taken amiodarone within the last THREE months, or that the patient's amiodarone plasma concentration is <0.3 mcg/mL.
Creatinine 1.0 mg/dL (0.6-1.0) 10/27/25 09:07
Estimated Creat Clear 41 ml/min 10/27/25 09:07
Personally calculated creatinine clearance 48.3
Does patient have a Ventricular Conduction Abnormality: No
I have assessed the baseline QTc interval (using QT for heart rate less than 60 bpm) and deemed the patient is appropriate for Dofetilide therapy. I understand that Tikosyn is contraindicated if the QTc is >440msec (500msec in patients with
ventricular conduction abnormalities).
Baseline QTc (in msec): 465
QTc interval is greater than 440msec without conduction abnormality OR greater than 500msec with a conduction abnormality, but acceptable to proceed per Cardiology attending.
Reason for Administration with Prolonged QTc: Other Atrial Arrhythmia
Ordering Physician: John Frazier
[2025-10-27] MEDS: LASIX 40 MG PO (10:07)
[2025-10-27] MEDS: MAGNESIUM OXIDE 400 MG PO (10:07)
[2025-10-27] MEDS: FEOSOL 325 MG PO (10:07)
[2025-10-27] MEDS: KCL 40 MEQ PO (10:07)
[2025-10-27] MEDS: COZAAR PO (10:08)
[2025-10-27] MEDS: COREG PO (10:08)
[2025-10-27] MEDS: TIKOSYN 250 MCG PO ×2 (10:51→21:56)
[2025-10-27 11:48] VITALS: BP 132/54
--- NOTE | 2025-10-27 12:40 | CM ---
Chart reviewed. Patient is independent of ADLS, lives with her daughter in a split level, 6 SENTHIL, 0 DME. Patient being Tikosyn loaded. CM to assess cost and availability at discharge. Patient will need a 3 day supply at discharge. CM to follow
--- NOTE | 2025-10-27 12:56 | CM ---
Pricing on Dofetilide through the patient [facility], ID# [id number], is covered at $8 for a 30 day supply
--- NOTE | 2025-10-27 13:40 | PTCARENOTE ---
Pt arrived as direct admit for Tikosyn loading. Pt AAOx3 SR on the monitor VSS PIV placed and labs sent. Baseline Qtc 465 and after 1st dose 488. POC discussed with pt and call kat within reach. Pt ambulates independently in room and hallway.
[2025-10-27 14:51] VITALS: BP 131/46
--- NOTE | 2025-10-27 16:34 | W.PN.UPDATE ---
Update Note
Progress Note Update
pt with h/o CAD s/p ESTEVAN x 2 circumflex in 01/2024. had been on DAPT, with Plavix and Eliquis x 1 yr post stenting, then stopped Plavix and cont on Eliquis. Pt is now s/p Watchman 05/2025 and 3 month post watchman JEFFREY 09/16/25 with no leakage around
device and no thrombus. Now off Eliquis. Will start ASA 81 mg daily for h/o CAD.
Also, given h/o chronic HFpEF will assess cost of SGLT2-I, case mgmt consult placed.
--- NOTE | 2025-10-27 16:42 | CM ---
Pricing on Farxiga through the patient's [facility], is $15 for a 30 day supply
[2025-10-27 19:43] VITALS: BP 131/59
[2025-10-27] MEDS: COREG 25 MG PO (19:48)
[2025-10-27 23:57] VITALS: BP 130/63
--- NOTE | 2025-10-28 00:32 | PTCARENOTE ---
Pt ambulating self in room and hallways. Denies any dizziness. 2nd dose of Tikosyn administered. EKG obtained 2hrs post per protocol, QTc 457. She denies any chest discomfort. Has an occasional moist cough. VSS. Aware of POC. Call kat within reach.
[2025-10-28 03:49] VITALS: BP 131/56
[2025-10-28 03:57] VITALS: BMI 26.8
[2025-10-28 04:55] LABS: Hematocrit 32.0 % (37.0-47.0); Hemoglobin 10.4 g/dL (12.0-16.0); Mean Corp Hgb Conc. 32.5 g/dL (33.0-37.0); Mean Corpuscular Volume 92.5 fL (81.0-99.0); Platelet Count 188 10^3/uL (130-400); Red Cell Dist. Width 14.5 % (11.5-14.5)
[2025-10-28 05:17] LABS: Blood Urea Nitrogen 27 mg/dl (7-17); Calcium 8.9 mg/dl (8.4-10.2); Carbon Dioxide 24 mmol/L (22-30); Chloride 106 mmol/L (98-107); Estimated Creatinine Clearance 46 ml/min; Glucose 97 mg/dl (70-99); Magnesium 2.0 mg/dl (1.6-2.3); Potassium 4.4 mmol/L (3.5-5.1); Sodium 137 mmol/L (135-145); eGFR > 60.00
[2025-10-28 07:48] VITALS: BP 144/84
[2025-10-28] MEDS: COREG 25 MG PO ×2 (07:53→19:11)
[2025-10-28] MEDS: LASIX 40 MG PO (07:53)
[2025-10-28] MEDS: FEOSOL 325 MG PO (07:53)
[2025-10-28] MEDS: COZAAR 25 MG PO (07:53)
[2025-10-28] MEDS: ASPIR LOW (ENTERIC COATED) 81 MG PO (07:53)
--- NOTE | 2025-10-28 08:11 | W.PN.CARDCBS ---
Addendum entered and electronically signed by Geovanna Browne DO 10/28/25 15:07:
I saw and examined the patient.
The Equine Dentist's note was reviewed and I agree with the note.
Comment: Patient was seen and examined ambulating around unit and room without symptoms. Feels well and tolerating Tikosyn
General: No acute distress, AAOX3
Neck: Negative JVD
Heart: Regular, positive S1/S2, No murmur
Lungs: CTA b/l, negative wheezes/rales/rhonchi
Abd: Positive BS, NT/ND, neg rebound/rigidity/guarding
Ext: No edema
Neuro: nonfocal
Plan:
Paroxysmal atrial fibrillation status post recurrent PVI and watchman for elective Tikosyn admission
- Remains in sinus rhythm with stable QTc interval
-Tolerating dofetilide 250 mcg twice daily started on 10/27
-Last EKG 10/28/25 at 0000: NSR QTc 457 msec
- K 4.4, mag 2.0 10/28/2025
- tele personally reviewed: NSR 80s-90s, occ PACs, 10 beat afib vs AT
- Status post Watchman 06/11/2025 with 3 month post watchman JEFFREY on 09/16/2025 showing no obvious SHERITA device leak or thrombus, anticoagulation stopped 09/16/2025
- Given h/o CAD s/o stenting in 2023, added back ASA 81 mg daily now that she is off OAC.
- History of heart failure preserved EF on losartan, carvedilol, and furosemide. Will start Farxiga 10 mg daily reviewed with case management, cost is $15 for 30-day supply
- Currently euvolemic on exam
- Anticipate discharge home 10/29 after fifth dose of Tikosyn. Cardiac f/u arranged
Original Note:
Today's Communication / Plan
-
Continue dofetilide loading
Start Farxiga for heart failure preserved EF
Restarted ASA 81 mg daily for history of CAD, now that she is off OAC status post Watchman
Impression / Plan
-
PCP: Brianna Sharpe
Primary tape deck installer: Geovanna Browne
*see 10/14/2025 cardiology office visit note for full history*
Impression:
Paroxysmal atrial fibrillation
PVI and Watchman 06/11/2025
PVI 12/04/2024
3-month post watchman JEFFREY 09/16/2025 well-seated Watchman Flex PERNELL occluder device with no evidence of flow around the device and no thrombus, Eliquis stopped.
Recurrent paroxysms of symptomatic atrial fibrillation post May 2025 ablation
CAD status post ESTEVAN mid circumflex 01/29/2024
Heart failure preserved EF
Iron deficiency anemia, hemoglobin as low as 8.1 requiring iron infusions
Suspected GI bleed but unable to identify clear source, followed by GI and hematology
Falls
Unstable gait
Hypertension
venous insufficiency
CREST
Previous cardiovascular testing:
Echo 05/13/2024: Normal LV RV size and function, LVEF 55 to 60%, mild to moderate MR, mild TR
JEFRFEY 12/04/2024: Normal biventricular size and systolic function, no thrombus in LA, PERNELL, RA or RAA, moderate MR
JEFFREY 06/11/2025: LVEF 55 to 60%, moderate MR, status post watchman flex 27 mm device with no obvious SHERITA device leak
JEFFREY 09/16/2025: Normal LV/RV size and function, moderate MR, well-seated watchman flex PERNELL occluder device no evidence of flow around device, no thrombus
Plan:
-Presents for initiation of dofetilide for recurrent paroxysmal atrial fibrillation status post PVI 06/11/2025, 12/04/2024
-presenting EKG: NSR, QTc pre-Dofetilide initiation 465 ms
- Based on labs 10/27/2025: Creat 1.0. creat clearance 48.3
-Started dofetilide 250 mcg twice daily on 10/27, has rec'd 3 doses.
-Last EKG 10/28/25 at 0000: NSR QTc 457 msec
-cont to monitor QTc
-- K 4.4, mag 2.0 10/28/2025
-telem personally reviewed: NSR 80s-90s, occ PACs, 10 beat afib vs AT
- Reviewed current medications, no contraindications with dofetilide, of note, patient had been on Z-Jhony for URI, last dose 10/22/2025
- Status post Watchman 06/11/2025 with 3 month post watchman JEFFREY on 09/16/2025 showing no obvious SHERITA device leak or thrombus, anticoagulation stopped 09/16/2025
-given h/o CAD s/o stenting in 2023, added back ASA 81 mg daily now that she is off OAC.
- History of heart failure preserved EF on losartan, carvedilol, and furosemide. Will start Farxiga 10 mg daily reviewed with case management, cost is $15 for 30-day supply
- Currently euvolemic on exam
-cardiac f/u arranged
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
Subjective
Date of Service: October 28, 2025
Feeling well
Maintaining sinus rhythm
Walking around hallways
Objective
Labs:
10/28/25 04:35
10/28/25 04:35
Labs
Hgb 10.4 g/dL (12.0-16.0) L 10/28/25 04:35
Hct 32.0 % (37.0-47.0) L 10/28/25 04:35
Plt Count 188 10^3/uL (130-400) 10/28/25 04:35
Sodium 137 mmol/L (135-145) 10/28/25 04:35
Potassium 4.4 mmol/L (3.5-5.1) 10/28/25 04:35
BUN 27 mg/dl (7-17) H 10/28/25 04:35
Creatinine 0.9 mg/dL (0.6-1.0) 10/28/25 04:35
Glucose 97 mg/dl (70-99) 10/28/25 04:35
Vital Signs and I&O:
Vital Signs
Temp Pulse Resp BP Pulse Ox
98.4 F 85 16 144/84 96
10/28/25 03:51 10/28/25 07:48 10/28/25 03:51 10/28/25 07:48 10/28/25 03:51
Vital Signs
Temp Pulse Resp BP Pulse Ox
98.4 F 85 16 144/84 96
10/28/25 03:51 10/28/25 07:48 10/28/25 03:51 10/28/25 07:48 10/28/25 03:51
Intake & Output
10/26/25 10/27/25 10/28/25 10/29/25
06:59 06:59 06:59 06:59
Intake Total 240 / 240
Balance 240 / 240
Physical Exam
Physical Exam
GEN: No distress, awake, Ox3
HEENT: supple, anicteric, mmm
LUNGS: CTA, no wheezes/rales
CV: Reg, S1/S2 no murmur
ABD: soft, BS+, NT/ND
EXT: No edema
NEURO: Gross non-focal
SKIN: No rash
[2025-10-28] MEDS: TIKOSYN 250 MCG PO ×2 (09:05→20:16)
--- NOTE | 2025-10-28 10:47 | CM ---
Chart reviewed. Patient is independent of ADLS, lives with her daughter in a split level, 6 SENTHIL, 0 DME. Patient being Tikosyn loaded. CM to assess availability on discharge and patient will need a 3 day supply to go home. CM to follow
[2025-10-28] MEDS: FARXIGA 10 MG PO (10:57)
[2025-10-28 11:06] VITALS: BP 127/48
[2025-10-28 14:59] VITALS: BP 95/66
--- NOTE | 2025-10-28 17:00 | PTCARENOTE ---
Pt received this am in SR, rate in the 70's. OOB ad basim in the room and in the hallway, gait steady. Tolerating Tikosyn with no issues.
[2025-10-28 19:08] VITALS: BP 129/51
[2025-10-28 22:19] VITALS: BP 122/42
--- NOTE | 2025-10-28 23:25 | PTCARENOTE ---
QTc post dose #4 Tiksoyn 507 ms, NSR with first degree AVB. EKG sent to Dr. Reilly via TT, instructed to repeat EKG at 0600 and hold AM dose of Tikosyn. Otherwise pt. has no complaints, VSS. Resting quietly.
[2025-10-29 03:56] VITALS: BP 129/51
[2025-10-29 04:07] VITALS: BMI 26.7
[2025-10-29 05:24] LABS: Blood Urea Nitrogen 27 mg/dl (7-17); Calcium 8.6 mg/dl (8.4-10.2); Carbon Dioxide 25 mmol/L (22-30); Chloride 107 mmol/L (98-107); Estimated Creatinine Clearance 37 ml/min; Glucose 88 mg/dl (70-99); Magnesium 2.0 mg/dl (1.6-2.3); Potassium 4.2 mmol/L (3.5-5.1); Sodium 139 mmol/L (135-145); eGFR 52.08
[2025-10-29 06:55] VITALS: BP 131/51
[2025-10-29] MEDS: FEOSOL 325 MG PO (08:24)
[2025-10-29] MEDS: COREG 25 MG PO (08:24)
[2025-10-29] MEDS: LASIX 40 MG PO (08:24)
[2025-10-29] MEDS: COZAAR 25 MG PO (08:24)
[2025-10-29] MEDS: ASPIR LOW (ENTERIC COATED) 81 MG PO (08:24)
[2025-10-29] MEDS: FARXIGA 10 MG PO (08:28)
[2025-10-29] MEDS: TIKOSYN 125 MCG PO (09:02)
[2025-10-29 11:17] VITALS: BP 109/43
--- NOTE | 2025-10-29 11:45 | W.PN.CARDCBS ---
Addendum entered and electronically signed by John Frazier MD 10/29/25 16:56:
75-year-old woman admitted for dofetilide loading following PVI 11/2024 and PVI/Watchman placement May 2025. Currently, she feels very well.
PMH/PSH: Atrial fibrillation status post PVI Watchman May 2025, CAD status post PCI January 2024, luminal irregularities of LAD, 50% RCA, 60-70% mid circumflex, 3.5 x 23 Xience stent to circumflex, CREST syndrome hypertension, hypercholesterolemia,
GERD, right total knee arthroplasty, HFpEF, mild to moderate MR by echo April 2024
Current medications: Carvedilol 25 mg twice daily, furosemide 40 mg a day, iron, losartan 25 mg daily, dofetilide 250 mcg every 12, aspirin 81 mg a day, dapagliflozin 10 mg daily, just added
129/51, pulse 72, respiratory 20, afebrile, head neck exam unremarkable, lungs are clear, regular rate and rhythm, no murmurs, no edema, ambulating in halls
ECG sinus rhythm, QTc is 506
Telemetry: Unremarkable
BUN/creatinine are 27 and 1.1, potassium is 4.2
Impression:
Recurrent paroxysmal atrial fibrillation following PVI
History of Watchman, now off Eliquis
CAD status post circumflex PVI 2023
Hypertension
Hyperlipidemia
History of GERD
History of HFpEF
Other diagnoses as below, reviewed in detail and agree unless otherwise specified.
Plan:
She looks well, but her QTc present is 506 ms 12 hours after a 250 mcg dose of dofetilide.
She is in sinus rhythm.
After 125 mcg of dofetilide, her EKG is acceptable with a QTc that is within range. Okay for discharge. We will arrange for a follow-up EKG as an outpatient in 48 hours.
Original Note:
Today's Communication / Plan
-
Continue Tikosyn 125 mcg every 12 hours
For EKG visit Tuesday 10/31 for reassessment at [facility]
Jerardoxiga is new
Added back aspirin this admission given history of stenting and is off anticoagulation status post Watchman
Okay for discharge to home today
Cardiac follow-up arranged
Impression / Plan
-
PCP: Brianna Sharpe
Primary clinical trial head: Geovanna Browne
*see 10/14/2025 cardiology office visit note for full history*
Impression:
Paroxysmal atrial fibrillation
PVI and Watchman 06/11/2025
PVI 12/04/2024
3-month post watchman JEFFREY 09/16/2025 well-seated Watchman Flex PERNELL occluder device with no evidence of flow around the device and no thrombus, Eliquis stopped.
Recurrent paroxysms of symptomatic atrial fibrillation post May 2025 ablation
CAD status post ESTEVAN mid circumflex 01/29/2024
Heart failure preserved EF
Iron deficiency anemia, hemoglobin as low as 8.1 requiring iron infusions
Suspected GI bleed but unable to identify clear source, followed by GI and hematology
Falls
Unstable gait
Hypertension
venous insufficiency
CREST
Previous cardiovascular testing:
Echo 05/13/2024: Normal LV RV size and function, LVEF 55 to 60%, mild to moderate MR, mild TR
JEFFREY 12/04/2024: Normal biventricular size and systolic function, no thrombus in LA, PERNELL, RA or RAA, moderate MR
JEFFREY 06/11/2025: LVEF 55 to 60%, moderate MR, status post watchman flex 27 mm device with no obvious SHERITA device leak
JEFFREY 09/16/2025: Normal LV/RV size and function, moderate MR, well-seated watchman flex PERNELL occluder device no evidence of flow around device, no thrombus
Plan:
- Presents for initiation of dofetilide for recurrent paroxysmal atrial fibrillation status post PVI 06/11/2025, 12/04/2024
- Has remained in sinus rhythm during admission
- Started on Tikosyn 250 mcg every 12 hours. Based on QT prolongation, dose decreased to 125 mcg every 12 hours to continue upon discharge. QTc improving by most recent EKG 10/29. will have patient come to [facility] on Tuesday 10/31 for repeat EKG
to reassess QTc
- K/mag stable
- Status post Watchman 06/11/2025 with 3 month post watchman JEFFREY on 09/16/2025 showing no obvious SHERITA device leak or thrombus, anticoagulation stopped 09/16/2025. given h/o CAD s/p stenting in 2023, added back ASA 81 mg daily now that she is off
OAC.
- History of heart failure preserved EF on losartan, carvedilol, and furosemide. Farxiga 10 mg daily started this admission, cost is $15 for 30-day supply
- Currently euvolemic on exam. continue OP lasix 40mg daily
- OP cardiac f/u arranged
- ok for DC to home
- d/w nursing
- total DC time 34 minutes
#[id number]
Progress Note - Asset Liability Analyst
Subjective
Date of Service: October 29, 2025
Feeling well. Eager for discharge. Denies chest pain, shortness of breath, palpitations. Ambulatory in halls
Objective
Labs:
10/28/25 04:35
10/29/25 04:03
Labs
Hgb 10.4 g/dL (12.0-16.0) L 10/28/25 04:35
Hct 32.0 % (37.0-47.0) L 10/28/25 04:35
Plt Count 188 10^3/uL (130-400) 10/28/25 04:35
Sodium 139 mmol/L (135-145) 10/29/25 04:03
Potassium 4.2 mmol/L (3.5-5.1) 10/29/25 04:03
BUN 27 mg/dl (7-17) H 10/29/25 04:03
Creatinine 1.1 mg/dL (0.6-1.0) H 10/29/25 04:03
Glucose 88 mg/dl (70-99) 10/29/25 04:03
Vital Signs and I&O:
Vital Signs
Temp Pulse Resp BP Pulse Ox
98.2 F 72 20 129/51 94
10/29/25 11:17 10/29/25 05:00 10/29/25 11:17 10/29/25 03:56 10/29/25 11:17
Vital Signs
Temp Pulse Resp BP Pulse Ox
98.2 F 72 20 129/51 94
10/29/25 11:17 10/29/25 05:00 10/29/25 11:17 10/29/25 03:56 10/29/25 11:17
Intake & Output
10/27/25 10/28/25 10/29/25 10/30/25
07:59 07:59 07:59 07:59
Intake Total 240 / 240 480 / 480
Balance 240 / 240 480 / 480
Physical Exam
Physical Exam
GEN: No distress, awake, alert, oriented x3
HEENT: supple, anicteric, mmm, EOMI
LUNGS: CTA bilaterally, no wheezes/rales
CV: Reg, S1/S2, no murmur
ABD: soft, BS+, NT/ND
EXT: No cyanosis, clubbing, edema
NEURO: Gross non-focal
SKIN: Warm, pink, dry. No rash
--- NOTE | 2025-10-29 14:05 | W.DS.TRANS ---
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
-
Discharge Instructions:
Sleep Apnea Risk Low
Discharge Diagnosis/Procedures paroxysmal atrial fibrillation, tikosyn loading
Diet Low Cholesterol,2 Gram Sodium
Activity As tolerated
Driving Restrictions As prior to admission
Others Tests EKG on Monday10/31/24 at 11:20AM at [facility] in [facility], [address]
Specialty Instructions Weigh Daily
Instructions: *DCA Heart Failure Instructions
Stand-Alone Forms:
Changes to Home Medications: Yes
Discharge Medications:
DC Medications w/original date entered in [facility]
carvedilol 25 mg tablet 25 mg PO BID htn 12/22/23
furosemide 40 mg tablet 40 mg PO DAILY EDEMA 12/22/23
multivitamin 1 tab PO QPM Supplement 12/22/23
atorvastatin 40 mg tablet 40 mg PO QPM cholesterol 12/28/23
pantoprazole 40 mg tablet,delayed release 40 mg PO QPM GERD 05/27/25
losartan 25 mg tablet 25 mg PO DAILY 09/16/25
vonoprazan 20 mg tablet (Voquezna) 20 mg PO DAILY 10/27/25
aspirin 81 mg tablet,delayed release 81 mg PO DAILY #30 tabs 10/29/25
dapagliflozin propanediol 10 mg tablet 10 mg PO DAILY #30 tabs 10/29/25
dofetilide 125 mcg capsule 125 mcg PO Q12H #60 caps 10/29/25
Home Medication Changes
tikosyn, aspirin, and farxiga are new
Pending Results: No
[2025-10-29] MEDS: FLUZONE HIGH-DOSE 2025-26 0.5 ML IM (14:25)
--- NOTE | 2025-10-29 14:58 | CM ---
Dofetilide dosing adjusted, confirmed that pharmacy has new dosing (125mcg) in stock. Rx for 3 day supply obtained and sent to pharmacy. ARSLAN Jj updated.
[2025-10-29 15:00] VITALS: BP 110/46
--- NOTE | 2025-10-29 15:30 | CM ---
Patient requesting Farxiga Rx only be faxed to [facility] in [place], fax#[phone]. Rx sent, confirmation received, patient updated.
--- NOTE | 2025-10-29 16:41 | PTCARENOTE ---
Pt received this am in SR, rate in the 70's. OOB ad basim in the room and ambulates in the hallway. Tikosyn dose decreased to 125mg as ordered. Pt tolerated well with QTC reading results given to Katharina Ruiz. Pt discharged to home with her daughter.
Discharge instructions given and reviewed with pt and her daughter with good understanding and all questions answered.
== END 2025-10-29 15:45 | disposition home or self-care (01) | DRG 309 ==
LOC: IVU 08:18
PROVIDERS: Physician Assistant Medical; ADMITTING PHYSICIAN Internal Medicine Cardiovascular Disease
DX: I48.0 Paroxysmal atrial fibrillation (principal); I50.32 Chronic diastolic (congestive) heart failure; I25.10 Atherosclerotic heart disease of native coronary artery without angina pectoris; I11.0 Hypertensive heart disease with heart failure; D50.9 Iron deficiency anemia, unspecified; Z91.81 History of falling; I87.2 Venous insufficiency (chronic) (peripheral); Z95.5 Presence of coronary angioplasty implant and graft; K21.9 Gastro-esophageal reflux disease without esophagitis; E78.5 Hyperlipidemia, unspecified
CPT/HCPCS: 80048; 80053; 83735; 85027; 90662; 93005; G0008